=== PATIENT | female | born 1935 | race Caucasian/White ===

== ENCOUNTER 2016-05-20 13:46 | Observation (INO) | payer MEDICARE, BC ==
[2016-05-20] MEDS ORDERED: Ketorolac 30 MG/ML SDV IM ONE (14:26)
--- NOTE | 2016-05-20 14:28 | EDM.PDOC ---
ED HPI Trauma - General Chief Complaint: Upper Extremity Injury/Pain Stated Complaint: HURT RT ARM/WRIST Time Seen by Provider: 05/20/16 14:27 Source: Reports: Family History Limitations: Reports: Physical impairment - History of Present Illness INITIAL COMMENTS - FREE TEXT/NARRATIVE: 81-year-old female presents emergency department today with family complaint of right wrist pain she does have a known history of dementia unknown fall today unknown mechanism action she does have an obvious deformity of her right wrist she is unable to recall events Allergies/ADRs: Allergies amoxicillin trihydrate [From Augmentin] Allergy (Verified 05/20/16 14:32) Hives potassium clavulanate [From Augmentin] Allergy (Verified 05/20/16 14:32) Hives hydrocodone Adverse Reaction (Verified 05/20/16 14:32) Hallucinations Sulfa (Sulfonamide Antibiotics) Adverse Reaction (Verified 05/20/16 14:32) Vomiting Home Medications: Ambulatory Orders Isosorbide Mononitrate [Imdur] 60 mg PO DAILY 03/19/14 [Confirmed 05/20/16] Methotrexate Sodium [Methotrexate] 25 mg IJ ASDIRECTED 12/15/15 [Confirmed 05/20] Metoprolol Succinate 25 mg PO DAILY 12/15/15 [Confirmed 05/20/16] levETIRAcetam [Keppra] 500 mg PO BID #60 tablet 12/16/15 [Confirmed 05/20/16] Past Medical History HEENT History: Reports: Impaired vision 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: Reports: Hypertension [employer]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: Musculoskeletal History: Reports: Osteoporosis Neurological History: Reports: Alzheimers disease, Seizure Psychiatric History: Reports: Dementia Hematologic History: Reports: Blood transfusion(s) Oncologic (Cancer) History: Reports: Breast Dermatologic History: Reports: Psoriasis - Infectious Disease History Infectious Disease History: Reports: Chicken pox, Measles - Past Surgical History Female Surgical History: Reports: section, Mastectomy, Other (see below) Other Female Surgeries/Procedures: right mastectomy Musculoskeletal Surgical History: Reports: Hip replacement Oncologic Surgical History: Reports: Mastectomy Social & Family History - Family History Family Medical History: Unobtainable - Tobacco Use Smoking Status *Q: Never Smoker Second Hand Smoke Exposure: No - Caffeine Use Caffeine Use: Reports: Coffee - Alcohol Use Days Per Week of Alcohol Use: 2 Number of Drinks Per Day: 1 Total Drinks Per Week: 2 - Recreational Drug Use Recreational Drug Use: No Review of Systems - Review of Systems Review Of Systems: Unable To Obtain (Dementia) Trauma Exam - Physical Exam Exam: See Below Text/Narrative:: Examination of the upper extremity right side there is a deformity at the wrist she has difficulty moving all digits secondary to pain radial pulses 2+ appreciate any erythema no tenderness at the elbow no tenderness at the shoulder General Appearance: Reports: alert Respiratory Exam: Reports: no respiratory distress Course - Vital Signs Last Recorded V/S: Last Vital Signs Temp 98.8 F 05/20/16 14:21 Pulse 67 05/20/16 14:21 Resp 16 05/20/16 14:21 BP 106/58 L 05/20/16 14:21 Pulse Ox 96 05/20/16 14:21 - Orders/Labs/Meds Orders: Active Orders 24 hr Category Date Time Status Peripheral IV Care [RC] . DIRECTED Care 05/20/16 15:50 Active Sodium Chloride 0.9% [Saline Flush] Med 05/20/16 15:50 Active 10 ml FLUSH ASDIRECTED PRN Peripheral IV Insertion Adult [OM.PC] Urgent Oth 05/20/16 15:50 Ordered Medication Orders Sodium Chloride (Saline Flush) 10 ml FLUSH ASDIRECTED PRN PRN Reason: Keep Vein Open Meds: Medications Generic Name Dose Route Start Last Admin Trade Name Freq PRN Reason Stop Dose Admin Sodium Chloride 10 ml 05/20/16 15:50 Saline Flush FLUSH ASDIRECTED PRN Keep Vein Open Discontinued Medications Generic Name Dose Route Start Last Admin Trade Name Freq PRN Reason Stop Dose Admin Hydromorphone HCl 0.5 mg 05/20/16 15:50 Dilaudid IVPUSH 05/20/16 15:51 ONETIME ONE Ketorolac Tromethamine 30 mg 05/20/16 14:26 05/20/16 14:48 Toradol IM 05/20/16 14:27 30 mg ONETIME ONE Administration Departure - Departure Time of Disposition: 16:04 Disposition: Admitted As Inpatient 66 Condition: good Clinical Impression: Distal radius fracture, right Qualifiers: Encounter type: initial encounter Fracture type: closed Fracture morphology: other fracture Qualified Code(s): S52.591A - Other fractures of lower end of right radius, initial encounter for closed fracture Right distal ulnar fracture Qualifiers: Encounter type: initial encounter Fracture type: closed Fracture morphology: unspecified fracture morphology Qualified Code(s): S52.601A - Unspecified fracture of lower end of right ulna, initial encounter for closed fracture Forms: ED Department Discharge - My Orders Last 24 Hours: My Active Orders 05/20/16 15:50 Peripheral IV Care [RC] . DIRECTED Sodium Chloride 0.9% [Saline Flush] 10 ml FLUSH ASDIRECTED PRN Peripheral IV Insertion Adult [OM.PC] Urgent - Assessment/Plan Last 24 Hours: My Active Orders 05/20/16 15:50 Peripheral IV Care [RC] . DIRECTED Sodium Chloride 0.9% [Saline Flush] 10 ml FLUSH ASDIRECTED PRN Peripheral IV Insertion Adult [OM.PC] Urgent Plan: Assessment Distal radius fracture closed right side, distal ulnar fracture closed right side both comminuted Alzheimer's dementia Plan Discuss case with Dr. Bianchi orthopedic surgery recommended volar splint admission to the hospital plan for surgical intervention in the morning
--- NOTE | 2016-05-20 14:46 | CR ---
Wrist Comp Min 3V Rt HISTORY: Fall. COMPARISON: None FINDINGS: Compacted comminuted fracture of the radial metaphysis with mild ventral angulation. Mildl y compacted fracture of the very distal neck of the ulna. Carpal bones appear intact. Old ulnar styl oid fracture.
[2016-05-20] MEDS ORDERED: Sodium Chloride 0.9% 10 ML Syringe FLUSH PRN (15:50)
[2016-05-20] MEDS ORDERED: HYDROmorphone 0.5 MG/0.5 ML Syringe IVPUSH ONE (15:50)
--- NOTE | 2016-05-20 16:27 | PCM.HP ---
H&P History of Present Illness - General Date of Service: 05/20/16 Admit Problem/Dx: Admission Diagnosis/Problem Admission Diagnosis/Problem Wrist joint pain Source of Information: Patient, Family History Limitations: Reports: Altered mental status (dementia) - History of Present Illness Initial Comments - Free Text/Narative: Jennifer presents to the emergency room with her . She is complaining of right wrist pain after a fall. She has dementia and doesn't really remember what happened. She thinks that she was going out the front door of her assisted -living building but does not recall if she fell or what happened. She's complaining of moderate throbbing right wrist pain. Pain has been present since about 1 PM today when she had her episode. She hasn't taken anything to make the pain better. Moving makes the pain worse. She's never experienced pain like this in the past. Ice does seem to help the pain feel better since she's been in the emergency room. No recent difficulties with cough, chest pain or shortness of breath. Thinks it been going well recently. No history of difficulty with anesthesia or bleeding issues perioperatively. Workup in the emergency room revealed a fracture of the right radius and right ulna. She will be admitted for observation and surgical intervention in the morning. - Related Data Allergies/Adverse Reactions: Allergies Allergy/AdvReac Type Severity Reaction Status Date / Time amoxicillin trihydrate Allergy Hives Verified 05/20/16 14:32 [From Augmentin] potassium clavulanate Allergy Hives Verified 05/20/16 14:32 [From Augmentin] hydrocodone AdvReac Hallucinati Verified 05/20/16 14:32 ons Sulfa (Sulfonamide AdvReac Vomiting Verified 05/20/16 14:32 Antibiotics) Home Medications: Home Meds Isosorbide Mononitrate [Imdur] 60 mg PO DAILY 03/19/14 [History] Methotrexate Sodium [Methotrexate] 25 mg IJ ASDIRECTED 12/15/15 [History] Metoprolol Succinate 25 mg PO DAILY 12/15/15 [History] levETIRAcetam [Keppra] 500 mg PO BID #60 tablet 12/16/15 [Rx] LORazepam 1 mg PO ASDIRECTED PRN 05/20/16 [History] Past Medical History HEENT History: Reports: Impaired vision 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: Reports: Hypertension [employer]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: Musculoskeletal History: Reports: Osteoporosis Neurological History: Reports: Alzheimers disease, Seizure Psychiatric History: Reports: Dementia Hematologic History: Reports: Blood transfusion(s) Oncologic (Cancer) History: Reports: Breast Dermatologic History: Reports: Psoriasis - Infectious Disease History Infectious Disease History: Reports: Chicken pox, Measles - Past Surgical History Female Surgical History: Reports: section, Mastectomy, Other (see below) Other Female Surgeries/Procedures: right mastectomy Musculoskeletal Surgical History: Reports: Hip replacement Oncologic Surgical History: Reports: Mastectomy Social & Family History - Family History Family Medical History: Unobtainable - Tobacco Use Smoking Status *Q: Never Smoker Second Hand Smoke Exposure: No - Caffeine Use Caffeine Use: Reports: Coffee - Alcohol Use Days Per Week of Alcohol Use: 2 Number of Drinks Per Day: 1 Total Drinks Per Week: 2 - Recreational Drug Use Recreational Drug Use: No H&P Review of Systems - Review of Systems: Review Of Systems: See Below Free Text/Narrative: A complete 12 point review of systems was obtained. Pertinent positives and negatives are noted in the history of present illness. All other systems were reviewed and were negative except as noted. Exam - Exam Exam: See Below - Vital Signs Vital Signs: Last Vital Signs Temp 37.1 C 05/20/16 14:21 Pulse 67 05/20/16 14:21 Resp 16 05/20/16 14:21 BP 106/58 L 05/20/16 14:21 Pulse Ox 96 05/20/16 14:21 Weight: 52.163 kg - Exam Quality Assessment: No: supplemental oxygen General: alert, cooperative. No: oriented, mild distress HEENT: Conjunctiva clear, Posterior pharynx clear. No: Scleral icterus Neck: supple, trachea midline Lungs: Clear to auscultation, Normal respiratory effort Cardiovascular: regular rate, regular rhythm Abdomen: soft. No: distention (And all day and), tenderness Back Exam: normal inspection, full range of motion Extremities: normal pulses, other (Swelling right wrist). No: edema Peripheral Pulses: 2+: dorsalis pedis (L), dorsalis pedis (R) Skin: warm, dry, intact. No: rash Neuro Extensive - Mental Status: alert, normal mood/affect. No: oriented x3 Neuro Extensive - Motor, Sensory, Reflexes: CN II-XII intact. No: dysarthria, abnormal motor, tremor Psychiatric: alert, normal affect - Patient Data Imaging Impressions last 24 hrs: X-ray of the right wrist - images personally reviewed - there is evidence for a displaced fracture of the distal radius as well as the distal ulna with comminution of the fracture *Q Meaningful Use (ADM) - VTE *Q VTE Criteria *Q: VTE Pharmacological Contraindications *Q: Patient Scheduled Surgery - Stroke *Q Stroke Criteria *Q: - AMI *Q AMI Criteria *Q: - Problem List (1) Right distal ulnar fracture SNOMED Code(s): 260684566 ICD Code: S52.601A - UNSP FRACTURE OF LOWER END OF RIGHT ULNA, INIT FOR CLOS FX Status: Acute Current Visit: Yes Qualifiers: Encounter type: initial encounter Fracture type: closed Fracture morphology: unspecified fracture morphology Qualified Code(s): S52.601A - Unspecified fracture of lower end of right ulna, initial encounter for closed fracture (2) Distal radius fracture, right SNOMED Code(s): 632409305 ICD Code: S52.501A - UNSP FRACTURE OF THE LOWER END OF RIGHT RADIUS, INIT Status: Acute Current Visit: Yes Qualifiers: Encounter type: initial encounter Fracture type: closed Fracture morphology: other fracture Qualified Code(s): S52.591A - Other fractures of lower end of right radius, initial encounter for closed fracture (3) Seizure disorder SNOMED Code(s): 695799212 ICD Code: G40.909 - EPILEPSY, UNSP, NOT INTRACTABLE, WITHOUT STATUS EPILEPTICUS Status: Chronic Current Visit: Yes (4) Hypertension SNOMED Code(s): 05789823 ICD Code: I10 - ESSENTIAL (PRIMARY) HYPERTENSION Status: Chronic Current Visit: Yes Qualifiers: Hypertension type: essential hypertension Qualified Code(s): I10 - Essential (primary) hypertension Problem List Initiated/Reviewed/Updated: Yes Orders Last 24hrs: Active Orders 24 hr Category Date Time Status Patient Status Manage Transfer [TRANSFER] Routine ADT 05/20/16 16:16 Ordered Peripheral IV Care [RC] . DIRECTED Care 05/20/16 15:50 Active Sodium Chloride 0.9% [Saline Flush] Med 05/20/16 15:50 Active 10 ml FLUSH ASDIRECTED PRN Peripheral IV Insertion Adult [OM.PC] Urgent Oth 05/20/16 15:50 Ordered Resuscitation Status Routine Resus Stat 05/20/16 16:18 Ordered Medication Orders Sodium Chloride (Saline Flush) 10 ml FLUSH ASDIRECTED PRN PRN Reason: Keep Vein Open Last Admin: 05/20/16 16:22 Dose: 10 ml Assessment/Plan Comment:: Assessment and plan - Right radius and ulna fracture - secondary to fall and trauma. There is displacement of the fracture. Surgical intervention is planned. The patient is in optimal achievable medical condition for the surgery at this time. She has a low risk surgery and I believe is a low risk patient. -Admitted for observation -Pain control -Consult to Dr. Bianchi for surgical intervention in the morning -N.p.o. after midnight History of seizure disorder - No recent issues. -Continue levetiracetam Hypertension - Well-controlled usual medications will be continued. Alzheimer's type dementia - no behavior issues at this time. Maintenance issues - - DVT prophylaxis - mechanical - GI prophylaxis - not indicated - Nutrition - n.p.o. after midnight - Queen catheter - not indicated CODE STATUS - full code Admission justification - she will be referred observation status for pain control overnight and surgery in the morning Disposition - anticipate discharge back to her assisted-living facility tomorrow Primary care physician - Dr. Anthony Lamb M.D.
--- NOTE | 2016-05-20 18:27 | PCM.CONS ---
H&P History of Present Illness - General Date of Service: 05/20/16 Admit Problem/Dx: Admission Diagnosis/Problem Patient ALEKSANDR today. Seen in ED. Found to have distal radius and ulna fracture , closed. Placed in volar splint. Admitted to Medicine. Source of Information: Patient, Provider History Limitations: Reports: Altered mental status - History of Present Illness Onset of Symptoms: Reports: today Quality: Reports: Ache, Burning, Pressure, Throbbing Improves with: Reports: Cold therapy, Immobilization Worsens with: Reports: Movement Associated Symptoms: Reports: denies other symptoms Wrist Pain Score (Numeric/FACES): 7 - Related Data Allergies/Adverse Reactions: Allergies Allergy/AdvReac Type Severity Reaction Status Date / Time amoxicillin trihydrate Allergy Hives Verified 05/20/16 14:32 [From Augmentin] potassium clavulanate Allergy Hives Verified 05/20/16 14:32 [From Augmentin] hydrocodone AdvReac Hallucinati Verified 05/20/16 14:32 ons Sulfa (Sulfonamide AdvReac Vomiting Verified 05/20/16 14:32 Antibiotics) Home Medications: Home Meds Isosorbide Mononitrate [Imdur] 60 mg PO DAILY 03/19/14 [History] Methotrexate Sodium [Methotrexate] 25 mg IJ ASDIRECTED 12/15/15 [History] Metoprolol Succinate 25 mg PO DAILY 12/15/15 [History] levETIRAcetam [Keppra] 500 mg PO BID #60 tablet 12/16/15 [Rx] LORazepam 1 mg PO ASDIRECTED PRN 05/20/16 [History] Past Medical History HEENT History: Reports: Impaired vision 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: Musculoskeletal History: Reports: Osteoporosis Neurological History: Reports: Alzheimers disease, Seizure Psychiatric History: Reports: Dementia Hematologic History: Reports: Blood transfusion(s) Oncologic (Cancer) History: Reports: Breast Dermatologic History: Reports: Psoriasis - Infectious Disease History Infectious Disease History: Reports: Chicken pox, Measles - Past Surgical History Female Surgical History: Reports: section, Mastectomy, Other (see below) Other Female Surgeries/Procedures: right mastectomy Musculoskeletal Surgical History: Reports: Hip replacement Oncologic Surgical History: Reports: Mastectomy Social & Family History - Family History Family Medical History: Unobtainable - Tobacco Use Smoking Status *Q: Never Smoker Second Hand Smoke Exposure: No - Caffeine Use Caffeine Use: Reports: Coffee - Alcohol Use Days Per Week of Alcohol Use: 2 Number of Drinks Per Day: 1 Total Drinks Per Week: 2 - Recreational Drug Use Recreational Drug Use: No H&P Review of Systems - Review of Systems: Review Of Systems: See Below General: Reports: no symptoms HEENT: Reports: no symptoms Pulmonary: Reports: No Symptoms Cardiovascular: Reports: no symptoms Gastrointestinal: Reports: No symptoms Genitourinary: Reports: no symptoms Musculoskeletal: Reports: hand pain, muscle pain Exam - Exam Exam: See Below - Vital Signs Vital Signs: Last Vital Signs Temp 98.8 F 05/20/16 14:21 Pulse 69 05/20/16 16:37 Resp 16 05/20/16 16:37 BP 138/77 05/20/16 16:37 Pulse Ox 93 L 05/20/16 16:37 Weight: 115 lb - Exam General: alert, oriented, cooperative HEENT: PERRLA, Conjunctiva clear Neck: supple, trachea midline Extremities: normal inspection Peripheral Pulses: 2+: radial (R) Skin: warm, dry, intact Neuro Extensive - Mental Status: alert, oriented x3 Physical Exam Comments:: Distal motor and sensory function grossly intact. Mild apex volar deformity right wrist. Minimal swelling. AIN intact. 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 Consult PN Assessment/Plan Procedures: Procedures ASSAY OF CK (CPK) (02/13/13) ASSAY OF CREATININE (02/21/16) ASSAY OF TROPONIN QUANT (12/15/15) CHEST X-RAY 2VW FRONTAL&LATL (03/19/14) COMPLETE CBC AUTOMATED (12/15/15) COMPLETE CBC W/AUTO DIFF WBC (03/19/14) COMPREHEN METABOLIC PANEL (02/13/13) CT HEAD/BRAIN W/O DYE (12/15/15) ELECTROCARDIOGRAM REPORT (02/13/13) ELECTROCARDIOGRAM TRACING (02/13/13) EMERGENCY DEPT VISIT (12/15/15) EMERGENCY DEPT VISIT (03/19/14) EMERGENCY DEPT VISIT (02/13/13) HOT OR COLD PACKS THERAPY (12/21/13) HYDRATE IV INFUSION ADD-ON (02/13/13) HYDRATION IV INFUSION INIT (02/13/13) INFLUENZA ASSAY W/OPTIC (03/19/14) MANUAL THERAPY 1/> REGIONS (12/21/13) METABOLIC PANEL TOTAL CA (12/15/15) MR ANGIOGRAPH NECK W/O&W/DYE (02/21/16) MR ANGIOGRAPHY HEAD W/O DYE (02/20/16) MRI BRAIN STEM W/O & W/DYE (02/21/16) PROTHROMBIN TIME (12/15/15) PT EVALUATION (12/15/15) ROUTINE VENIPUNCTURE (02/21/16) THER/PROPH/DIAG INJ IV PUSH (12/15/15) THERAPEUTIC EXERCISES (12/21/13) URINALYSIS AUTO W/O SCOPE (02/13/13) URINALYSIS AUTO W/SCOPE (12/15/15) X-RAY EXAM OF KNEE 3 (04/17/16) (1) Distal radius fracture, right SNOMED Code(s): 633699978 Code(s): S52.501A - UNSP FRACTURE OF THE LOWER END OF RIGHT RADIUS, INIT Current Visit: Yes Qualifiers: Encounter type: initial encounter Fracture type: closed Fracture morphology: other fracture Qualified Code(s): S52.591A - Other fractures of lower end of right radius, initial encounter for closed fracture (2) Right distal ulnar fracture SNOMED Code(s): 641917497 Code(s): S52.601A - UNSP FRACTURE OF LOWER END OF RIGHT ULNA, INIT FOR CLOS FX Current Visit: Yes Qualifiers: Encounter type: initial encounter Fracture type: closed Fracture morphology: unspecified fracture morphology Qualified Code(s): S52.601A - Unspecified fracture of lower end of right ulna, initial encounter for closed fracture Problem List Initiated/Reviewed/Updated: Yes Plan: Patient is right hand dominant. Explained need for ORIF tomorrow AM. Informed consent obtained. Officer splinting today. Will make NPO at midnight. Will follow up in 2 weeks after surgery. Requesting Provider: Forest Lamb MD Date Consult Requested: 05/20/16 Patient History Reviewed: Yes Admission H&P Reviewed: Yes Notified Requestor: Yes
[2016-05-20] MEDS ORDERED: LORazepam 1 MG Tab PO PRN (19:03)
[2016-05-20] MEDS ORDERED: Polyethylene Glycol 3350 Powder 17 GM Packet PO PRN (19:03)
[2016-05-20] MEDS ORDERED: Acetaminophen 325 MG Tab PO PRN (19:03)
[2016-05-20] MEDS: HYDROmorphone 0.5 MG/0.5 ML Syringe IVPUSH PRN (19:47)
[2016-05-20] MEDS ORDERED: levETIRAcetam 250 MG Tab PO SCH (21:00)
[2016-05-20] MEDS: Ondansetron 4 MG Tab.DIS PO PRN (22:08)
[2016-05-21] MEDS: HYDROmorphone 0.5 MG/0.5 ML Syringe IVPUSH PRN ×3 (04:03→15:10)
[2016-05-21] MEDS: Ondansetron 4 MG Tab.DIS PO PRN ×2 (04:03→10:23)
[2016-05-21] MEDS ORDERED: Metoprolol Succinate 25 MG Tab.ER ONE (06:15)
[2016-05-21] MEDS: Metoprolol Succinate 25 MG Tab.ER**POM PO SCH ×2 (06:41→09:44)
[2016-05-21] MEDS ORDERED: Povidone-Iodine 10% Soln 118.25 ML Bottle ONE (06:45)
[2016-05-21] MEDS ORDERED: Bupivacaine 0.5%/EPINEPHrine 1:200,000 50 ML MDV ONE (06:45)
[2016-05-21] MEDS ORDERED: fentaNYL 250 MCG/5 ML SDV ONE (07:14)
[2016-05-21] MEDS ORDERED: Ondansetron 4 MG/2 ML SDV ONE (07:15)
[2016-05-21] MEDS ORDERED: Propofol 200 MG/20 ML SDV ONE (07:15)
[2016-05-21] MEDS ORDERED: Dexamethasone 4 MG/ML SDV ONE (07:15)
[2016-05-21] MEDS: ISOSORBIDE MONONITRATE 60 MG PO SCH (09:42)
[2016-05-21] MEDS: LEVETIRACETAM 500 MG PO SCH ×2 (09:43→20:11)
[2016-05-21] MEDS: oxyCODONE 5 MG Tab PO PRN ×2 (10:14→14:16)
--- NOTE | 2016-05-21 11:04 | OR ---
DATE OF PROCEDURE: 05/21/2016 PREOPERATIVE DIAGNOSIS: Right distal radius and ulnar fracture, closed. POSTOPERATIVE DIAGNOSIS: Right distal radius and ulnar fracture, closed. PROCEDURE: Right distal radius open reduction and internal fixation and application of short-arm splint. ANESTHESIA: Laryngeal mask airway, general anesthesia. FLUID: Lactated Ringer solution. ESTIMATED BLOOD LOSS: 25 mL. COMPLICATIONS: None. SPECIMEN: None. DISCHARGE DISPOSITION: Stable to PACU. Tourniquet time is 29 minutes. INDICATION FOR THE PROCEDURE: The patient was admitted to the hospital last night for a distal radius fracture after a fall. She did have some dementia. I did evaluate her last evening, and informed consent was obtained. Preoperative imaging confirmed the above- mentioned diagnosis. DETAILS OF PROCEDURE: The patient was seen preoperatively by myself and the Anesthesia staff in the preoperative holding area where the operative site was marked. She was brought to the operative suite by the Anesthesia staff where general anesthesia was administered. The right upper extremity had a well-padded tourniquet placed on the arm. The right upper extremity was then prepped and draped in a sterile manner. Time-out was called identifying the correct patient, correct procedure, the correct site, and antibiotics had begun with an appropriate period of time. The Esmarch was used to exsanguinate the right upper extremity. Tourniquet was raised to 250 mmHg for 29 minutes. An incision was made from the carpus approximately around 10 to 12 cm and carried down to the flexor carpi radialis tendon. Weitlaner retractor was then used to lateralize the tendon and then the dorsal aspect of the muscle sheath was then incised down to the pronator. A sharp blade was then used to remove the pronator as well as using an elevator. Irrigation was used to clear the surgical site. The fracture was then reduced. Confirmed on fluoroscopy. However, was extremely unstable. There were 2 intra-articular segments as well. I then placed a plate under fluoroscopic guidance, drilled the cortical hole, and then held the plate in place. I did this a couple of times using fluoroscopy. I then drilled my proximal and distal rows and placed screws and then applied my other 2 cortical screws. Imaging confirmed excellent reduction and alignment. I then copiously irrigated the wound with saline, closed with 2-0 subcutaneous Vicryl sutures in an interrupted manner followed by 3-0 nylon sutures followed by a sterile dressing followed by a short-arm splint. The tourniquet was let down prior to closure to evaluate for any bleeders, which were controlled with Bovie electrocautery. The patient was then taken to PACU in stable condition. Rakan Bianchi DO /[id number]
--- NOTE | 2016-05-21 14:22 | PCM.PN ---
- General Info Date of Service: 05/21/16 Functional Status: Reports: pain controlled, tolerating diet - Review of Systems General: Reports: Weakness Musculoskeletal: Reports: arm pain Systems Review Comment:: No acute events overnight. Surgical fixation this morning was uneventful. Not much of an appetite but otherwise feels well. Mild to moderate wrist pain at this time. No fevers. - Patient Data Vitals - most recent: Last Vital Signs Temp 36.8 C 05/21/16 11:27 Pulse 68 05/21/16 11:27 Resp 14 05/21/16 11:27 BP 124/84 05/21/16 11:27 Pulse Ox 92 L 05/21/16 11:27 Weight - most recent: 48.943 kg I&O - last 24 hours: Intake & Output 05/20/16 05/21/16 05/21/16 22:59 06:59 14:59 Intake Total 240 1280 Output Total 150 Balance 90 1280 Med Orders - Current: Current Medications Acetaminophen (Tylenol) 650 mg PO Q4H PRN PRN Reason: Pain (Mild 1-3)/fever Last Admin: 05/21/16 00:02 Dose: 650 mg Hydromorphone HCl (Dilaudid) 0.5 - 1 mg IVPUSH Q2H PRN PRN Reason: Pain (severe 7-10) Last Admin: 05/21/16 10:13 Dose: 0.5 mg Lorazepam (Ativan) 1 mg PO BID PRN PRN Reason: Anxiety Metoprolol Succinate (Toprol Xl) 25 mg PO DAILY [facility] Last Admin: 05/21/16 09:44 Dose: Not Given Ondansetron HCl (Zofran Odt) 4 mg PO Q6H PRN PRN Reason: Nausea able to take PO Last Admin: 05/21/16 10:23 Dose: 4 mg Oxycodone HCl (Oxycodone) 5 mg PO Q4H PRN PRN Reason: Pain (moderate 4-6) Last Admin: 05/21/16 14:16 Dose: 5 mg Isosorbide Mononitrate 60 Mg Tab.ErPom 0 each PO DAILY [facility] Last Admin: 05/21/16 09:42 Dose: 1 each Levetiracetam 500 Mg (TabPom) 0 each PO BID [facility] Last Admin: 05/21/16 09:43 Dose: 1 each Polyethylene Glycol (Miralax) 17 gm PO DAILY PRN PRN Reason: Constipation Sodium Chloride (Saline Flush) 10 ml FLUSH ASDIRECTED PRN PRN Reason: Keep Vein Open Last Admin: 05/20/16 16:22 Dose: 10 ml Discontinued Medications Bupivacaine HCl/Epinephrine Bitart (Marcaine 0.5%/Epinephrine 1:200,000) Confirm Administered Dose 50 ml .ROUTE .STK-MED ONE Stop: 05/21/16 06:46 Dexamethasone (Dexamethasone) Confirm Administered Dose 4 mg .ROUTE .STK-MED ONE Stop: 05/21/16 07:16 Fentanyl (Sublimaze) Confirm Administered Dose 250 mcg .ROUTE .STK-MED ONE Stop: 05/21/16 07:15 Hydromorphone HCl (Dilaudid) 0.5 mg IVPUSH ONETIME ONE Stop: 05/20/16 15:51 Last Admin: 05/20/16 16:22 Dose: 0.5 mg Clindamycin Phosphate 600 mg/ (Sodium Chloride) 54 mls @ 100 mls/hr IV ONETIME ONE Stop: 05/21/16 07:32 Last Admin: 05/21/16 07:24 Dose: 100 mls/hr Ketorolac Tromethamine (Toradol) 30 mg IM ONETIME ONE Stop: 05/20/16 14:27 Last Admin: 05/20/16 14:48 Dose: 30 mg Levetiracetam (Keppra) 500 mg PO BID [facility] Last Admin: 05/20/16 23:51 Dose: 500 mg Metoprolol Succinate (Toprol Xl) Confirm Administered Dose 25 mg .ROUTE .STK- MED ONE Stop: 05/21/16 06:16 Last Admin: 05/21/16 06:46 Dose: Not Given Ondansetron HCl (Zofran) Confirm Administered Dose 4 mg .ROUTE .STK-MED ONE Stop: 05/21/16 07:16 Povidone Iodine (Betadine 10% Soln) Confirm Administered Dose 1 ml .ROUTE .STK- MED ONE Stop: 05/21/16 06:46 Last Admin: 05/21/16 10:10 Dose: 10 ml Propofol (Diprivan 20 Ml) Confirm Administered Dose 200 mg .ROUTE .STK-MED ONE Stop: 05/21/16 07:16 - Exam Quality Assessment: No: supplemental oxygen General: alert, cooperative, no acute distress Neck: supple Lungs: Normal respiratory effort Abdomen: soft, no distension Extremities: no edema, other (Right arm wrapped in an Elmer wrap covering a splint. Able to wiggle all of her fingers on the right and no limitations) Skin: warm, dry Psy/Mental Status: alert, normal affect - Problem List & Annotations (1) Right distal ulnar fracture SNOMED Code(s): 249447777 Code(s): S52.601A - UNSP FRACTURE OF LOWER END OF RIGHT ULNA, INIT FOR CLOS FX Status: Acute Current Visit: Yes Qualifiers: Encounter type: initial encounter Fracture type: closed Fracture morphology: unspecified fracture morphology Qualified Code(s): S52.601A - Unspecified fracture of lower end of right ulna, initial encounter for closed fracture (2) Distal radius fracture, right SNOMED Code(s): 931894908 Code(s): S52.501A - UNSP FRACTURE OF THE LOWER END OF RIGHT RADIUS, INIT Status: Acute Current Visit: Yes Qualifiers: Encounter type: initial encounter Fracture type: closed Fracture morphology: other fracture Qualified Code(s): S52.591A - Other fractures of lower end of right radius, initial encounter for closed fracture (3) Seizure disorder SNOMED Code(s): 754104347 Code(s): G40.909 - EPILEPSY, UNSP, NOT INTRACTABLE, WITHOUT STATUS EPILEPTICUS Status: Chronic Current Visit: Yes (4) Hypertension SNOMED Code(s): 67210427 Code(s): I10 - ESSENTIAL (PRIMARY) HYPERTENSION Status: Chronic Current Visit: Yes Qualifiers: Hypertension type: essential hypertension Qualified Code(s): I10 - Essential (primary) hypertension - Problem List Review Problem List Initiated/Reviewed/Updated: Yes - My Orders Last 24 Hours: My Active Orders 05/20/16 16:18 Resuscitation Status Routine 05/20/16 19:03 Patient Status [ADT] Routine Notify Provider Consults [RC] ASDIRECTED Notify Provider Vital Signs [RC] ASDIRECTED Oxygen Therapy [RC] PRN Up With Assistance [RC] ASDIRECTED VTE/DVT Education [RC] Per Unit Routine Vital Signs [RC] Q4H Consult to Physician [CONS] Routine Acetaminophen [Tylenol] 650 mg PO Q4H PRN HYDROmorphone [Dilaudid] 0.5 - 1 mg IVPUSH Q2H PRN LORazepam [Ativan] 1 mg PO BID PRN Ondansetron [Zofran ODT] 4 mg PO Q6H PRN Polyethylene Glycol 3350 [MiraLAX] 17 gm PO DAILY PRN oxyCODONE 5 mg PO Q4H PRN Sequential Compression Device [OM.PC] Per Unit Routine VTE Pharmacological Contraindications [AST] Per Unit Routine 05/20/16 Dinner Regular Diet [DIET] 05/21/16 07:04 Fluoro Up To 1Hr [CR] Routine 05/21/16 09:00 Patient's Own Medication [Ptom] 0 each PO BID 05/21/16 Breakfast Nothing per Oral After Midnight Diet [DIET] - Plan Plan:: Assessment and plan - Right radius and ulna fracture - secondary to fall and trauma. There is displacement of the fracture. Surgical intervention was completed this morning. She is currently in a splint. Some difficulty with pain probably complicated by her dementia. Family is worried about her safety at assisted living and we're looking into a safe discharge plan such as the [facility] or snf. -Pain control -Physical therapy History of seizure disorder - No recent issues. -Continue levetiracetam Hypertension - Well-controlled usual medications will be continued. Alzheimer's type dementia - no behavior issues at this time. Maintenance issues - - DVT prophylaxis - mechanical - GI prophylaxis - not indicated - Nutrition - n.p.o. after midnight Disposition - anticipate discharge back to her assisted-living facility versus [facility] versus [facility] Forest Lamb M.D.
[2016-05-22] MEDS: oxyCODONE 5 MG Tab PO PRN ×2 (00:06→08:38)
[2016-05-22] MEDS: HYDROmorphone 0.5 MG/0.5 ML Syringe IVPUSH PRN (02:15)
[2016-05-22 07:24] VITALS: BP 106/66
[2016-05-22] MEDS: ISOSORBIDE MONONITRATE 60 MG PO SCH (08:40)
[2016-05-22] MEDS: LEVETIRACETAM 500 MG PO SCH (08:40)
[2016-05-22] MEDS: Metoprolol Succinate 25 MG Tab.ER**POM PO SCH (08:41)
--- NOTE | 2016-05-22 09:48 | PCM.DCSUM1 ---
Discharge Summary - Hospital Course Brief History: 81-year-old female with a history of dementia who presents with right wrist pain after a presumed fall. Workup in the emergency room revealed fractures of the distal radius and distal ulna. She was admitted for surgical intervention. - Discharge Data Discharge Date: 05/22/16 Discharge Disposition: Home, [facility] 06 Condition: Good - Discharge Diagnosis/Problem(s) (1) Right distal ulnar fracture SNOMED Code(s): 119598977 ICD Code: S52.601A - UNSP FRACTURE OF LOWER END OF RIGHT ULNA, INIT FOR CLOS FX Status: Acute Qualifiers: Encounter type: initial encounter Fracture type: closed Fracture morphology: unspecified fracture morphology Qualified Code(s): S52.601A - Unspecified fracture of lower end of right ulna, initial encounter for closed fracture (2) Distal radius fracture, right SNOMED Code(s): 383747877 ICD Code: S52.501A - UNSP FRACTURE OF THE LOWER END OF RIGHT RADIUS, INIT Status: Acute Qualifiers: Encounter type: initial encounter Fracture type: closed Fracture morphology: other fracture Qualified Code(s): S52.591A - Other fractures of lower end of right radius, initial encounter for closed fracture (3) Seizure disorder SNOMED Code(s): 488876807 ICD Code: G40.909 - EPILEPSY, UNSP, NOT INTRACTABLE, WITHOUT STATUS EPILEPTICUS Status: Chronic (4) Hypertension SNOMED Code(s): 39282058 ICD Code: I10 - ESSENTIAL (PRIMARY) HYPERTENSION Status: Chronic Qualifiers: Hypertension type: essential hypertension Qualified Code(s): I10 - Essential (primary) hypertension - Patient Summary/Data Operative Procedure(s) Performed: Open reduction and internal fixation right distal radius Consults: Consultations 05/20/16 19:03 Consult to Physician [CONS] Routine Consulting Provider: Rakan Bianchi Courtesy Call Completed to Consulting Physician: Yes Reason for Consult: right wrist fracture Person Notified: Dr Giovani Bianchi Date Notified: 05/20/16 Special Instructions: surgical intervention in the morning Hospital Course: Jennifer presented to the emergency room with right wrist pain. Because of her dementia the exact mechanism of injury was not entirely clear but fall was suspected. Workup in the emergency room revealed a fracture of both the distal radius and the distal ulna on the right arm. Because of her dementia, advanced age and pain difficulty she was admitted to the hospital for observation and plan to surgical intervention the following morning. There were no acute issues the night after admission. The morning after admission she had a successful and uneventful ORIF of the right distal radius. Following the surgery a short arm splint was applied to the right wrist area. Postoperatively we had a little bit of difficulty with pain and mild confusion because of the anesthesia. She remained hospitalized the second night while potential discharge options were being reviewed and discussed. On the morning of discharge she had improved enough that she was felt safe to go back to her assisted-living facility with her . The family was interested in home health care and she will be receiving physical therapy through home health care. The assisted living facility he is planning to increase to nursing services to provide additional assistance. Scheduled acetaminophen and as needed oxycodone were recommended for pain control. She will followup in 2 weeks in the orthopedic clinic. - Patient Instructions Diet: Regular Diet as Tolerated Activity: Apply Ice Driving: Do Not Drive Showering/Bathing: No Showering Wound/Incision Care: Keep Operative Site/Wound Site Clean and Dry, Do NOT Change Dressing Notify Provider of: Fever, Increased Pain, Swelling and Redness, Drainage, Nausea and/or Vomiting Other/Special Instructions: 1. You were in the hospital for surgical management of a right wrist fracture. A fracture has been treated with an open reduction and internal fixation by Dr. Bianchi. He has provided instructions as above about not putting any weight on your wrist at least until your followup appointment in 2 weeks. 2. I would recommend that she take acetaminophen 1000 mg 3 times daily to help with pain from the fracture. You may use oxycodone as needed for pain if you have breakthrough pain. 3. Please seek medical attention if you develop fever greater than 101, have increased swelling in your wrist, become unable to use her fingers on your right hand or have severe pain that is not able to be controlled with your pain medication. - Discharge Plan Prescriptions/Med Rec: Acetaminophen 1,000 mg PO TID #90 tablet oxyCODONE 5 mg PO Q4H PRN #30 tablet PRN Reason: Pain Home Medications: Home Meds Isosorbide Mononitrate [Imdur] 60 mg PO DAILY 03/19/14 [History] Methotrexate Sodium [Methotrexate] 25 mg IJ ASDIRECTED 12/15/15 [History] Metoprolol Succinate 25 mg PO DAILY 12/15/15 [History] levETIRAcetam [Keppra] 500 mg PO BID #60 tablet 12/16/15 [Rx] LORazepam 1 mg PO ASDIRECTED PRN 05/20/16 [History] Acetaminophen 1,000 mg PO TID #90 tablet 05/22/16 [Rx] oxyCODONE 5 mg PO Q4H PRN #30 tablet 05/22/16 [Rx] Patient Handouts: Wrist Fracture Treated With Immobilization Referrals: Zion Cruz MD [Primary Care Provider] - - Discharge Summary/Plan Comment DC Time >30 min.: No (25) - Patient Data Vitals - Most Recent: Last Vital Signs Temp 36.5 C 05/22/16 07:00 Pulse 57 L 05/22/16 08:41 Resp 18 05/22/16 07:00 BP 106/66 05/22/16 08:41 Pulse Ox 98 05/22/16 07:00 Weight - Most Recent: 48.943 kg I&O - Last 24 hours: Intake & Output 05/21/16 05/22/16 05/22/16 22:59 06:59 14:59 Intake Total 200 240 Output Total 100 Balance 200 -100 240 Med Orders - Current: Current Medications Acetaminophen (Tylenol) 650 mg PO Q4H PRN PRN Reason: Pain (Mild 1-3)/fever Last Admin: 05/21/16 00:02 Dose: 650 mg Hydromorphone HCl (Dilaudid) 0.5 - 1 mg IVPUSH Q2H PRN PRN Reason: Pain (severe 7-10) Last Admin: 05/22/16 02:15 Dose: 1 mg Lorazepam (Ativan) 1 mg PO BID PRN PRN Reason: Anxiety Metoprolol Succinate (Toprol Xl) 25 mg PO DAILY [facility] Last Admin: 05/22/16 08:41 Dose: 25 mg Ondansetron HCl (Zofran Odt) 4 mg PO Q6H PRN PRN Reason: Nausea able to take PO Last Admin: 05/21/16 10:23 Dose: 4 mg Oxycodone HCl (Oxycodone) 5 mg PO Q4H PRN PRN Reason: Pain (moderate 4-6) Last Admin: 05/22/16 08:38 Dose: 5 mg Isosorbide Mononitrate 60 Mg Tab.ErPom 0 each PO DAILY [facility] Last Admin: 05/22/16 08:40 Dose: 1 each Levetiracetam 500 Mg (TabPom) 0 each PO BID [facility] Last Admin: 05/22/16 08:40 Dose: 1 each Polyethylene Glycol (Miralax) 17 gm PO DAILY PRN PRN Reason: Constipation Sodium Chloride (Saline Flush) 10 ml FLUSH ASDIRECTED PRN PRN Reason: Keep Vein Open Last Admin: 05/20/16 16:22 Dose: 10 ml Discontinued Medications Bupivacaine HCl/Epinephrine Bitart (Marcaine 0.5%/Epinephrine 1:200,000) Confirm Administered Dose 50 ml .ROUTE .STK-MED ONE Stop: 05/21/16 06:46 Dexamethasone (Dexamethasone) Confirm Administered Dose 4 mg .ROUTE .STK-MED ONE Stop: 05/21/16 07:16 Fentanyl (Sublimaze) Confirm Administered Dose 250 mcg .ROUTE .STK-MED ONE Stop: 05/21/16 07:15 Hydromorphone HCl (Dilaudid) 0.5 mg IVPUSH ONETIME ONE Stop: 05/20/16 15:51 Last Admin: 05/20/16 16:22 Dose: 0.5 mg Clindamycin Phosphate 600 mg/ (Sodium Chloride) 54 mls @ 100 mls/hr IV ONETIME ONE Stop: 05/21/16 07:32 Last Admin: 05/21/16 07:24 Dose: 100 mls/hr Ketorolac Tromethamine (Toradol) 30 mg IM ONETIME ONE Stop: 05/20/16 14:27 Last Admin: 05/20/16 14:48 Dose: 30 mg Levetiracetam (Keppra) 500 mg PO BID [facility] Last Admin: 05/20/16 23:51 Dose: 500 mg Metoprolol Succinate (Toprol Xl) Confirm Administered Dose 25 mg .ROUTE .STK- MED ONE Stop: 05/21/16 06:16 Last Admin: 05/21/16 06:46 Dose: Not Given Ondansetron HCl (Zofran) Confirm Administered Dose 4 mg .ROUTE .STK-MED ONE Stop: 05/21/16 07:16 Povidone Iodine (Betadine 10% Soln) Confirm Administered Dose 1 ml .ROUTE .STK- MED ONE Stop: 05/21/16 06:46 Last Admin: 05/21/16 10:10 Dose: 10 ml Propofol (Diprivan 20 Ml) Confirm Administered Dose 200 mg .ROUTE .STK-MED ONE Stop: 05/21/16 07:16 *Q Meaningful Use (DIS) - VTE *Q VTE Criteria *Q: VTE Pharmacological Contraindications *Q: Patient Scheduled Surgery - Stroke *Q Stroke Criteria *Q: - AMI *Q AMI Criteria *Q:
== END 2016-05-22 10:56 | disposition home health service (06) ==
LOC: JP.ED 13:46 → JP.MS 16:16
PROVIDERS: ADMIT Internal Medicine; ATTEND Internal Medicine
DX: S52.601A Unspecified fracture of lower end of right ulna, initial encounter for closed fracture (principal); S52.591A Other fractures of lower end of right radius, initial encounter for closed fracture; G40.909 Epilepsy, unspecified, not intractable, without status epilepticus; I10 Essential (primary) hypertension; Z79.899 Other long term (current) drug therapy; Z88.1 Allergy status to other antibiotic agents; Z88.2 Allergy status to sulfonamides; Z88.8 Allergy status to other drugs, medicaments and biological substances; Z96.649 Presence of unspecified artificial hip joint; Z90.11 Acquired absence of right breast and nipple
CPT/HCPCS: 25608; 25652; 29125; 73110; 76000; 96372; 96374; 96376; 99217; 99220; 99225; 99284; A9270; C1713; G0378; J1100; J1170; J1885; J2405; J2704; J3010; J7050; S0077

== ENCOUNTER 2016-06-01 11:29 | Emergency (ER) | payer MEDICARE, BC ==
[2016-06-01 12:00] VITALS: BP 104/60
--- NOTE | 2016-06-01 12:43 | EDM.PDOC ---
[id number] ARM PAIN SURGERY 05/22/16 Time Seen by Provider: 06/01/16 12:38 Source: Reports: Patient, Family History Limitations: Reports: No limitations - History of Present Illness INITIAL COMMENTS - FREE TEXT/NARRATIVE: Pt arrived with a concern about the wound and some bloody drainage. Timing: Reports: still present Location, Skin: Reports: upper extremity, right Known Identified Source: yes Associated symptoms: Reports: other (pt had a carpal tunnel repair. ) - Related Data Allergies Allergy/AdvReac Type Severity Reaction Status Date / Time amoxicillin trihydrate Allergy Hives Verified 06/01/16 12:05 [From Augmentin] potassium clavulanate Allergy Hives Verified 06/01/16 12:05 [From Augmentin] hydrocodone AdvReac Hallucinati Verified 06/01/16 12:05 ons Sulfa (Sulfonamide AdvReac Vomiting Verified 06/01/16 12:05 Antibiotics) Home Meds: Ambulatory Orders Medication Instructions Recorded Confirmed Methotrexate Sodium [Methotrexate] 25 mg IJ ASDIRECTED 12/15/15 06/01/16 Metoprolol Succinate 25 mg PO DAILY 12/15/15 06/01/16 levETIRAcetam [Keppra] 500 mg PO BID #60 tablet 12/16/15 06/01/16 LORazepam 1 mg PO ASDIRECTED PRN 05/20/16 06/01/16 Acetaminophen 1,000 mg PO TID #90 tablet 05/22/16 06/01/16 oxyCODONE 5 mg PO Q4H PRN #30 tablet 05/22/16 06/01/16 Past Medical History HEENT History: Reports: Impaired vision 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: Reports: Hypertension COMPUTATIONAL BIOLOGIST History: Reports: Musculoskeletal History: Reports: Osteoporosis Neurological History: Reports: Alzheimers disease, Seizure Psychiatric History: Reports: Dementia Hematologic History: Reports: Blood transfusion(s) Oncologic (Cancer) History: Reports: Breast Dermatologic History: Reports: Psoriasis - Infectious Disease History Infectious Disease History: Reports: Chicken pox, Measles - Past Surgical History Female Surgical History: Reports: section, Mastectomy, Other (see below) Other Female Surgeries/Procedures: right mastectomy Musculoskeletal Surgical History: Reports: Hip replacement Oncologic Surgical History: Reports: Mastectomy Social & Family History - Family History Family Medical History: Unobtainable - Tobacco Use Smoking Status *Q: Never Smoker Second Hand Smoke Exposure: No - Caffeine Use Caffeine Use: Reports: Coffee Other Caffeine Use: Daily in am. - Alcohol Use Days Per Week of Alcohol Use: 0 Number of Drinks Per Day: 1 Total Drinks Per Week: 0 - Recreational Drug Use Recreational Drug Use: No ED ROS GENERAL - Review of Systems Review Of Systems: See Below Constitutional: Reports: no symptoms HEENT: Reports: No symptoms Respiratory: Reports: No Symptoms Cardiovascular: Reports: No symptoms Endocrine: Reports: no symptoms GI/Abdominal: Reports: No symptoms : Reports: no symptoms ED EXAM, SKIN/RASH Exam: See Below Text/Narrative:: pt was concerned about the bloody drainage on the dressings and she is havin some pain. Exam Limited By: No limitations General Appearance: alert, anxious Ears: normal TMs Nose: normal inspection Extremities: other ( rt arm with the carpal tunnel incision. The dressing show dry bloody drainage which I reasured them it was normal. The wound looks great. she is complaining of not having good pain control at [facility]. ) Course - Vital Signs Last Recorded V/S: Last Vital Signs Temp 35.5 C 06/01/16 12:09 Pulse 82 06/01/16 12:09 Resp 16 06/01/16 12:09 BP 104/60 06/01/16 12:09 Pulse Ox 95 06/01/16 12:09 Departure - Departure Time of Disposition: 12:42 Disposition: Home, Self-Care 01 Condition: fair Clinical Impression: Encounter for wound re-check Instructions: How to Change Your Dressing, [id number] Referrals: Zion Cruz MD [Primary Care Provider] - Forms: ED Department Discharge Care Plan Goals: keep appt with Dr Bianchi on thur, elevate when sitting, use cool packs prn. at [facility] use oxycodone 2 tabs at bedtime, during the day if uncomforable and the tylenol is not controlling the pain use 1/2 of the oxycodone 4 time daily.
== END 2016-06-01 13:01 | disposition home or self-care (01) ==
LOC: JP.ED 11:29
DX: Z48.01 Encounter for change or removal of surgical wound dressing (principal); I10 Essential (primary) hypertension; G30.9 Alzheimer's disease, unspecified; Z90.11 Acquired absence of right breast and nipple; Z96.649 Presence of unspecified artificial hip joint; Z98.890 Other specified postprocedural states; Z79.899 Other long term (current) drug therapy; Z88.1 Allergy status to other antibiotic agents; Z88.2 Allergy status to sulfonamides; Z88.5 Allergy status to narcotic agent
CPT/HCPCS: 99283

== ENCOUNTER 2016-06-14 08:37 | Emergency (ER) | payer MEDICARE, BC ==
[2016-06-14 08:45] VITALS: BP 186/92
--- NOTE | 2016-06-14 09:01 | EDM.PDOC ---
[id number]: 06/14/16 08:50 Source: Reports: Patient, EMS, Family History Limitations: Reports: Other (Some confusion, dementia) - History of Present Illness INITIAL COMMENTS - FREE TEXT/NARRATIVE: 81-year-old female who lives in the local assisted care facility has been falling frequently over the past few months sustaining a right wrist fracture, hematomas and contusions to the face and hips and this morning she had too much discomfort to get out of bed. Most of her complaints this morning her left hip and left posterior buttock pain. She was given a 5 mg hydrocodone and seems to have improved. Denies any shortness of breath, abdominal pain, numbness of the lower extremities. Occurred When: other (Unsure when the injuries have been occurring, she falls frequently) Occurred Where: home Method of Injury: direct blow, fall Severity: moderate Pain/Injury Location: Reports: face, pelvis Consciousness: Reports: no loss of consciousness Associated Symptoms: Reports: trouble walking. Denies: headache, shortness of breath Allergies/ADRs: Allergies amoxicillin trihydrate [From Augmentin] Allergy (Verified 06/01/16 12:05) Hives potassium clavulanate [From Augmentin] Allergy (Verified 06/01/16 12:05) Hives hydrocodone Adverse Reaction (Verified 06/01/16 12:05) Hallucinations Sulfa (Sulfonamide Antibiotics) Adverse Reaction (Verified 06/01/16 12:05) Vomiting Home Medications: Ambulatory Orders Methotrexate Sodium [Methotrexate] 25 mg IJ ASDIRECTED 12/15/15 [Confirmed 06/14] Metoprolol Succinate 25 mg PO DAILY 12/15/15 [Confirmed 06/14/16] levETIRAcetam [Keppra] 500 mg PO BID #60 tablet 12/16/15 [Confirmed 06/14/16] LORazepam 1 mg PO ASDIRECTED PRN 05/20/16 [Confirmed 06/14/16] Acetaminophen 1,000 mg PO TID #90 tablet 05/22/16 [Confirmed 06/14/16] oxyCODONE 5 mg PO Q4H PRN #30 tablet 05/22/16 [Confirmed 06/14/16] Past Medical History HEENT History: Reports: Impaired vision 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: Reports: Hypertension 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: Musculoskeletal History: Reports: Osteoporosis Neurological History: Reports: Alzheimers disease, Seizure Psychiatric History: Reports: Dementia Hematologic History: Reports: Blood transfusion(s) Oncologic (Cancer) History: Reports: Breast Dermatologic History: Reports: Psoriasis - Infectious Disease History Infectious Disease History: Reports: Chicken pox, Measles - Past Surgical History Female Surgical History: Reports: section, Mastectomy, Other (see below) Other Female Surgeries/Procedures: right mastectomy Musculoskeletal Surgical History: Reports: Hip replacement Oncologic Surgical History: Reports: Mastectomy Social & Family History - Family History Family Medical History: Unobtainable - Tobacco Use Smoking Status *Q: Never Smoker Second Hand Smoke Exposure: No - Caffeine Use Caffeine Use: Reports: Coffee Other Caffeine Use: Daily in am. - Alcohol Use Days Per Week of Alcohol Use: 0 Number of Drinks Per Day: 1 Total Drinks Per Week: 0 - Recreational Drug Use Recreational Drug Use: No Review of Systems - Review of Systems Review Of Systems: See Below Constitutional: Denies: fever Respiratory: Denies: Shortness of Breath Cardiovascular: Denies: chest pain GI/Abdominal: Denies: Nausea, Vomiting Skin: Reports: bruising Neurological: Reports: Confusion Trauma Exam - Physical Exam Exam: See Below Exam Limited By: No limitations General Appearance: Reports: alert, no apparent distress Head: Reports: other (Large ecchymotic area on the left face from recent fall, no significance swelling) Neck: Reports: non-tender Respiratory Exam: Reports: no respiratory distress GI/Abdominal: Reports: soft, non tender Back: Reports: other (She does have pain in the left lower back and sacral area with movement and palpation). Denies: CVA tenderness (R), CVA tenderness (L) Extremities: Reports: pain with movement (Some pain with movement of the left lower extremity but less now than prior to leaving from home in the ambulance), other (She has a splint from recent surgery on the right wrist) Skin: Reports: Other (Scattered bruises from falls, especially at the left face) Course - Vital Signs Last Recorded V/S: Last Vital Signs Temp 96.4 F 06/14/16 08:42 Pulse 81 06/14/16 08:42 Resp 15 06/14/16 08:42 BP 186/92 H 06/14/16 08:42 Pulse Ox 96 06/14/16 08:42 - Orders/Labs/Meds Orders: Active Orders 24 hr Category Date Time Status Pelvis wo Cont [CT] Stat Exams 06/14/16 08:55 Taken Labs: Laboratory Tests 06/14/16 06/14/16 Range/Units 09:08 09:08 WBC 6.1 (4.5-11.0) K/uL RBC 3.83 (3.30-5.50) M/uL Hgb 12.0 (12.0-15.0) g/dL Hct 36.0 (36.0-48.0) % MCV 94 (80-98) fL MCH 31 (27-31) pg MCHC 33 (32-36) % Plt Count 234 (150-400) K/uL Neut % (Auto) 63 (36-66) % Lymph % (Auto) 21 L (24-44) % [place] % (Auto) 11 H (2-6) % Eos % (Auto) 5 H (2-4) % Baso % (Auto) 1 (0-1) % Sodium 141 (140-148) mmol/L Potassium 3.5 L (3.6-5.2) mmol/L Chloride 104 (100-108) mmol/L Carbon Dioxide 28 (21-32) mmol/L Anion Gap 12.5 (5.0-14.0) mmol/L BUN 8 D (7-18) mg/dL Creatinine 0.9 (0.6-1.0) mg/dL Est Cr Clr Drug Dosing 37.03 mL/min Estimated GFR (MDRD) > 60 (>60) Glucose 95 (74-106) mg/dL Calcium 8.7 (8.5-10.1) mg/dL Creatine Kinase 81 (26-192) U/L - Re-Assessments/Exams Free Text/Narrative Re-Assessment/Exam: 06/14/16 09:01 CBC BMP and CPK were obtained along with a pelvis CT without contrast. 06/14/16 10:23 Patient's labs were very normal, CK was normal. CT of the pelvis showed no fracture. At that time the patient was feeling much better so she was ambulated with assistance to assess whether she would be able to return back to assisted living. 06/14/16 10:27 The patient ambulated with assistance, she does have some soreness to the upper left buttock with weightbearing and movement. I have no reason to hospitalize her at this point, she does live in assisted living. She can continue her regular medications Departure - Departure Time of Disposition: 11:40 Disposition: DC/Tfer to [facility] Condition: fair Clinical Impression: Contusion of hip Instructions: Hip Pain Referrals: Zion Cruz MD [Primary Care Provider] - Forms: ED Department Discharge Care Plan Goals: Continue your regular medications, increase activity as tolerated and return or recheck as needed if not improving satisfactorily. - My Orders Last 24 Hours: My Active Orders 06/14/16 08:55 Pelvis wo Cont [CT] Stat - Assessment/Plan Last 24 Hours: My Active Orders 06/14/16 08:55 Pelvis wo Cont [CT] Stat
== END 2016-06-14 11:40 ==
LOC: JP.ED 08:37
DX: S70.02XA Contusion of left hip, initial encounter (principal); I10 Essential (primary) hypertension; G30.9 Alzheimer's disease, unspecified; F02.80 Dementia in other diseases classified elsewhere, unspecified severity, without behavioral disturbance, psychotic disturbance, mood disturbance, and anxiety; Z79.899 Other long term (current) drug therapy; Z88.1 Allergy status to other antibiotic agents; Z88.2 Allergy status to sulfonamides; Z88.5 Allergy status to narcotic agent; Z90.11 Acquired absence of right breast and nipple; Z96.649 Presence of unspecified artificial hip joint; Z98.890 Other specified postprocedural states; Z85.3 Personal history of malignant neoplasm of breast
CPT/HCPCS: 36415; 72192; 80048; 82550; 85025; 99282; 99285-25

== ENCOUNTER 2016-09-25 23:04 | Emergency (ER) | payer MEDICARE, BC ==
[2016-09-25] MEDS ORDERED: Sodium Chloride 0.9% 1,000 ML IV SCH (23:45)
[2016-09-26] MEDS ORDERED: Acetaminophen 1,000 MG in Premix Bag 1 BAG IV ONE (01:29)
[2016-09-26] MEDS ORDERED: Acetaminophen 500 MG Tab PO ONE ×2 (01:47→01:48)
--- NOTE | 2016-09-26 01:55 | EDM.PDOC ---
ED HPI GENERAL MEDICAL PROBLEM - General Chief Complaint: Fever Stated Complaint: MEDICAL [facility] Time Seen by Provider: 09/26/16 00:20 Source of Information: Reports: Patient, Family History Limitations: Reports: No Limitations - History of Present Illness INITIAL COMMENTS - FREE TEXT/NARRATIVE: History of present illness: [81-year-old female with dementia presents from the skilled nursing with a fever. She really has no other complaints other than a mild cough. She denies any sore throat or headache and earache she denies any chest pain or shortness of breath denies any abdominal pain nausea vomiting constipation diarrhea or dysuria.] Review of systems: As per history of present illness and below otherwise all systems reviewed and negative. Past medical history: As per history of present illness and as reviewed below otherwise noncontributory. Surgical history: As per history of present illness and as reviewed below otherwise noncontributory. Social history: No reported history of drug or alcohol abuse. Family history: As per history of present illness and as reviewed below otherwise noncontributory. Physical exam: HEENT: Atraumatic, normocephalic, pupils reactive, negative for conjunctival pallor or scleral icterus, mucous membranes moist, throat clear, neck supple, nontender, trachea midline. Lungs: Clear to auscultation, breath sounds equal bilaterally, chest nontender. Heart: S1S2, regular, negative for clicks, rubs, or JVD. Abdomen: Soft, nondistended, nontender. Negative for masses or hepatosplenomegaly. Negative for costovertebral tenderness. Pelvis: Stable nontender. Genitourinary: Deferred. Rectal: Deferred. Extremities: Atraumatic, negative for cords or calf pain. Neurovascular unremarkable. Neuro: Awake, alert, oriented. Cranial nerves II through XII unremarkable. Cerebellum unremarkable. Motor and sensory unremarkable throughout. Exam nonfocal. Diagnostics: [CBC her white count was normal complete pelvic panel was also done urinalysis looks unremarkable chest x-ray doesn't show any consolidated infiltrates.] Therapeutics: [She's received IV fluids while here and will be giving her some oral Tylenol. Also Rocephin 1 g IM] Impression: [Bronchitis possible early pneumonia] Plan: [We are going to go ahead and treat her with Rocephin and Zithromax blood cultures have been obtained. We'll return her to the skilled nursing and she can return if she is getting sicker] Definitive disposition and diagnosis as appropriate pending reevaluation and review of above. Denies Pain Score (Numeric/FACES): 0 - Related Data Allergies Allergy/AdvReac Type Severity Reaction Status Date / Time amoxicillin trihydrate Allergy Hives Verified 06/01/16 12:05 [From Augmentin] potassium clavulanate Allergy Hives Verified 06/01/16 12:05 [From Augmentin] hydrocodone AdvReac Hallucinati Verified 06/01/16 12:05 ons Sulfa (Sulfonamide AdvReac Vomiting Verified 06/01/16 12:05 Antibiotics) Home Meds: Home Meds RX: Metoprolol Succinate 25 mg PO DAILY 12/15/15 [History] RX: levETIRAcetam [Keppra] 500 mg PO BID #60 tablet 12/16/15 [Rx] Acetaminophen [Tylenol] 325 mg PO Q4H PRN 09/26/16 [History] Citalopram [Celexa] 10 mg PO DAILY 09/26/16 [History] Isosorbide Mononitrate [Isosorbide Mononitrate ER] 60 mg PO DAILY 09/26/16 [ History] RX: Docusate Sodium 100 mg PO Q48H PRN 09/26/16 [History] Past Medical History HEENT History: Reports: Impaired Vision 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: Reports: Hypertension 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: Musculoskeletal History: Reports: Osteoporosis Neurological History: Reports: Alzheimers Disease, Seizure Psychiatric History: Reports: Dementia Hematologic History: Reports: Blood Transfusion(s) Oncologic (Cancer) History: Reports: Breast Dermatologic History: Reports: Psoriasis - Infectious Disease History Infectious Disease History: Reports: Chicken Pox, Measles - Past Surgical History Female Surgical History: Reports: Section, Mastectomy, Other (See Below) Other Female Surgeries/Procedures: right mastectomy Musculoskeletal Surgical History: Reports: Hip Replacement Oncologic Surgical History: Reports: Mastectomy Social & Family History - Family History Family Medical History: Unobtainable - Tobacco Use Smoking Status *Q: Never Smoker Second Hand Smoke Exposure: No - Caffeine Use Caffeine Use: Reports: Coffee Other Caffeine Use: Daily in am. - Alcohol Use Days Per Week of Alcohol Use: 0 Number of Drinks Per Day: 1 Total Drinks Per Week: 0 - Recreational Drug Use Recreational Drug Use: No ED ROS GENERAL - Review of Systems Review Of Systems: ROS reveals no pertinent complaints other than HPI. ED EXAM, GENERAL - Physical Exam Exam: See Below Course - Vital Signs Last Recorded V/S: Last Vital Signs Temp 39.4 C H 09/26/16 00:00 Pulse 111 H 09/26/16 00:00 Resp 16 09/26/16 00:00 BP 169/97 H 09/26/16 00:00 Pulse Ox 87 L 09/26/16 00:00 - Orders/Labs/Meds Orders: Active Orders 24 hr Category Date Time Status Chest 1V Frontal [CR] Stat Exams 09/26/16 00:04 Taken CULTURE BLOOD [BC] Stat Lab 09/25/16 23:55 Received CULTURE BLOOD [BC] Stat Lab 09/26/16 00:01 Received CULTURE STREP A CONFIRMATION [RM] Stat Lab 09/26/16 00:01 Results STREP SCRN A RAPID W CULT CONF [RM] Stat Lab 09/26/16 00:01 Results Acetaminophen [Tylenol Extra Strength] Med 09/26/16 01:47 Once 1,000 mg PO ONETIME ONE Acetaminophen [Tylenol Extra Strength] Med 09/26/16 01:48 Once 1,000 mg PO ONETIME ONE Sodium Chloride 0.9% [Normal Saline] 1,000 ml Med 09/25/16 23:45 Active IV ASDIRECTED Medication Orders Sodium Chloride (Normal Saline) 1,000 mls @ 200 mls/hr IV ASDIRECTED MELANIE Last Admin: 09/25/16 23:58 Dose: 200 mls/hr Labs: Laboratory Tests 09/25/16 09/25/16 09/25/16 Range/Units 23:40 23:55 23:55 WBC 9.2 (4.5-11.0) K/uL RBC 3.97 (3.30-5.50) M/uL Hgb 12.3 (12.0-15.0) g/dL Hct 37.1 (36.0-48.0) % MCV 94 (80-98) fL MCH 31 (27-31) pg MCHC 33 (32-36) % Plt Count 208 (150-400) K/uL Neut % (Auto) 90 H (36-66) % Lymph % (Auto) 5 L (24-44) % [place] % (Auto) 4 (2-6) % Eos % (Auto) 1 L (2-4) % Baso % (Auto) 0 (0-1) % ABG Hemoglobin 12.7 (12.0-16.0) g/dL ABG Oxyhemoglobin 63.2 % ABG Carboxyhemoglobin 1.2 (0.0-1.6) % ABG Methemoglobin 0.8 % VBG pH 7.443 (7.350-7.450) VBG pCO2 38.2 mm/Hg VBG pO2 33.9 mm/Hg VBG HCO3 25.8 mmol/L VBG Total CO2 23.1 mmol/L VBG O2 Saturation 64.5 VBG O2 Content 11.2 %vol VBG Base Excess 2.2 mm/L O2 Delivery Device Room air Sodium 135 L (140-148) mmol/L Potassium 3.7 (3.6-5.2) mmol/L Chloride 99 L (100-108) mmol/L Carbon Dioxide 27 (21-32) mmol/L Anion Gap 12.7 (5.0-14.0) mmol/L BUN 8 (7-18) mg/dL Creatinine 1.0 (0.6-1.0) mg/dL Est Cr Clr Drug Dosing 32.73 mL/min Estimated GFR (MDRD) 53 L (>60) Glucose 112 H (74-106) mg/dL Lactic Acid (0.4-2.0) mmol/L Calcium 8.7 (8.5-10.1) mg/dL Total Bilirubin 0.5 D (0.2-1.0) mg/dL AST 25 (15-37) U/L ALT 16 (12-78) U/L Alkaline Phosphatase 87 (46-116) U/L C-Reactive Protein (0.0-0.3) mg/dL Total Protein 7.8 (6.4-8.2) g/dL Albumin 3.6 (3.4-5.0) g/dL Globulin 4.2 H (2.3-3.5) g/dL Albumin/Globulin Ratio 0.9 L (1.2-2.2) Urine Color Urine Appearance Urine pH (4.5-8.0) Ur Specific [place] (1.008-1.030) Urine Protein (NEGATIVE) mg/dL Urine Glucose (UA) (NEGATIVE) mg/dL Urine Ketones (NEGATIVE) mg/dL Urine Occult Blood (NEGATIVE) Urine Nitrite (NEGATIVE) Urine Bilirubin (NEGATIVE) Urine Urobilinogen (NORMAL) mg/dL Ur Leukocyte Esterase (NEGATIVE) Urine RBC (0-5) Urine WBC (0-5) Ur Epithelial Cells Amorphous Sediment Urine Bacteria Urine Mucus 09/25/16 09/25/16 09/26/16 Range/Units 23:55 23:55 00:42 WBC (4.5-11.0) K/uL RBC (3.30-5.50) M/uL Hgb (12.0-15.0) g/dL Hct (36.0-48.0) % MCV (80-98) fL MCH (27-31) pg MCHC (32-36) % Plt Count (150-400) K/uL Neut % (Auto) (36-66) % Lymph % (Auto) (24-44) % [place] % (Auto) (2-6) % Eos % (Auto) (2-4) % Baso % (Auto) (0-1) % ABG Hemoglobin (12.0-16.0) g/dL ABG Oxyhemoglobin % ABG Carboxyhemoglobin (0.0-1.6) % ABG Methemoglobin % VBG pH (7.350-7.450) VBG pCO2 mm/Hg VBG pO2 mm/Hg VBG HCO3 mmol/L VBG Total CO2 mmol/L VBG O2 Saturation VBG O2 Content %vol VBG Base Excess mm/L O2 Delivery Device Sodium (140-148) mmol/L Potassium (3.6-5.2) mmol/L Chloride (100-108) mmol/L Carbon Dioxide (21-32) mmol/L Anion Gap (5.0-14.0) mmol/L BUN (7-18) mg/dL Creatinine (0.6-1.0) mg/dL Est Cr Clr Drug Dosing mL/min Estimated GFR (MDRD) (>60) Glucose (74-106) mg/dL Lactic Acid 2.2 H (0.4-2.0) mmol/L Calcium (8.5-10.1) mg/dL Total Bilirubin (0.2-1.0) mg/dL AST (15-37) U/L ALT (12-78) U/L Alkaline Phosphatase (46-116) U/L C-Reactive Protein 0.43 H (0.0-0.3) mg/dL Total Protein (6.4-8.2) g/dL Albumin (3.4-5.0) g/dL Globulin (2.3-3.5) g/dL Albumin/Globulin Ratio (1.2-2.2) Urine Color Yellow Urine Appearance Clear Urine pH 8.0 (4.5-8.0) Ur Specific [place] 1.015 (1.008-1.030) Urine Protein 30 H (NEGATIVE) mg/dL Urine Glucose (UA) Normal (NEGATIVE) mg/dL Urine Ketones Negative (NEGATIVE) mg/dL Urine Occult Blood Negative (NEGATIVE) Urine Nitrite Negative (NEGATIVE) Urine Bilirubin Negative (NEGATIVE) Urine Urobilinogen Normal (NORMAL) mg/dL Ur Leukocyte Esterase Negative (NEGATIVE) Urine RBC 0-5 (0-5) Urine WBC 0-5 (0-5) Ur Epithelial Cells Few Amorphous Sediment Few Urine Bacteria Few Urine Mucus Not seen Meds: Medications Generic Name Dose Route Start Last Admin Trade Name Freq PRN Reason Stop Dose Admin Sodium Chloride 1,000 mls @ 200 mls/hr 09/25/16 23:45 09/25/16 23:58 Normal Saline IV 200 mls/hr ASDIRECTED MELANIE Administration Discontinued Medications Generic Name Dose Route Start Last Admin Trade Name Freq PRN Reason Stop Dose Admin Acetaminophen 1,000 mg/ Premix 100 mls @ 400 mls/hr 09/26/16 01:29 IV 09/26/16 01:43 NOW ONE Departure - Departure Time of Disposition: 01:55 Disposition: DC/Tfer to [facility] Condition: Fair Clinical Impression: Bronchitis - Discharge Information Forms: ED Department Discharge Additional Instructions: If over the next 2-3 days or not improving and getting worse I would like you to return to the emergency room for another evaluation. - My Orders Last 24 Hours: My Active Orders 09/25/16 23:45 Sodium Chloride 0.9% [Normal Saline] 1,000 ml IV ASDIRECTED 09/25/16 23:55 CULTURE BLOOD [BC] Stat 09/26/16 00:01 CULTURE BLOOD [BC] Stat CULTURE STREP A CONFIRMATION [RM] Stat STREP SCRN A RAPID W CULT CONF [RM] Stat 09/26/16 00:04 Chest 1V Frontal [CR] Stat 09/26/16 01:47 Acetaminophen [Tylenol Extra Strength] 1,000 mg PO ONETIME ONE 09/26/16 01:48 Acetaminophen [Tylenol Extra Strength] 1,000 mg PO ONETIME ONE - Assessment/Plan Last 24 Hours: My Active Orders 09/25/16 23:45 Sodium Chloride 0.9% [Normal Saline] 1,000 ml IV ASDIRECTED 09/25/16 23:55 CULTURE BLOOD [BC] Stat 09/26/16 00:01 CULTURE BLOOD [BC] Stat CULTURE STREP A CONFIRMATION [RM] Stat STREP SCRN A RAPID W CULT CONF [RM] Stat 09/26/16 00:04 Chest 1V Frontal [CR] Stat 09/26/16 01:47 Acetaminophen [Tylenol Extra Strength] 1,000 mg PO ONETIME ONE 09/26/16 01:48 Acetaminophen [Tylenol Extra Strength] 1,000 mg PO ONETIME ONE
[2016-09-26] MEDS ORDERED: cefTRIAXone 1 GM, Lidocaine 1% 2.1 ML IM ONE ×2 (01:56)
[2016-09-26 02:27] VITALS: BP 158/94
--- NOTE | 2016-09-26 09:12 | CR ---
Mild cardiomegaly. No focal consolidation. Mild interstitial thickening which may be chronic or mild interstitial edema. Streaky density left lung base may indicate atelectasis only. Difficult to excl ude developing infiltrate.
== END 2016-09-26 02:27 ==
LOC: JP.ED 23:04
DX: J40 Bronchitis, not specified as acute or chronic (principal); I10 Essential (primary) hypertension; Z88.1 Allergy status to other antibiotic agents; Z88.2 Allergy status to sulfonamides; Z88.5 Allergy status to narcotic agent; Z88.6 Allergy status to analgesic agent; Z79.899 Other long term (current) drug therapy; Z98.890 Other specified postprocedural states; Z96.649 Presence of unspecified artificial hip joint
CPT/HCPCS: 36415; 71010; 80053; 81001; 82803; 83605; 85025; 86140; 87040; 87081; 87430; 87804; 96360; 96361; 96372; 99285; A9270; J0696; J7040; 99284

== ENCOUNTER 2017-02-07 00:34 | Inpatient (IN) | payer MEDICARE, BC ==
[2017-02-07] MEDS ORDERED: Ondansetron 4 MG/2 ML SDV IVPUSH ONE (00:35)
--- NOTE | 2017-02-07 00:42 | EDM.PDOC ---
ED HPI GENERAL MEDICAL PROBLEM - General Chief Complaint: Head Injury Stated Complaint: FALL VIA [place]TH Time Seen by Provider: 02/07/17 00:35 Source of Information: Reports: EMS History Limitations: Reports: Other (dementia) - History of Present Illness INITIAL COMMENTS - FREE TEXT/NARRATIVE: 81 yo female here via EMS from a local [facility] after a fall with head injury. Fall was not witnessed. Vomited for EMS. They noted a large laceration to the R side of her face. Was talking for them. Is not on warfarin. No other injuries noted en route. Uncertain about timing of injury. Is a DNR patient. Onset: Today, Unknown/Unsure Onset Date: 02/07/17 Duration: Other (minutes to hours?) Location: Reports: Head, Face (Right side) - Related Data Allergies Allergy/AdvReac Type Severity Reaction Status Date / Time amoxicillin trihydrate Allergy Hives Verified 06/01/16 12:05 [From Augmentin] potassium clavulanate Allergy Hives Verified 06/01/16 12:05 [From Augmentin] hydrocodone AdvReac Hallucinati Verified 06/01/16 12:05 ons Sulfa (Sulfonamide AdvReac Vomiting Verified 06/01/16 12:05 Antibiotics) Home Meds: Home Meds Metoprolol Succinate 25 mg PO DAILY 12/15/15 [History] levETIRAcetam [Keppra] 500 mg PO BID #60 tablet 12/16/15 [Rx] Acetaminophen [Tylenol] 325 mg PO Q4H PRN 09/26/16 [History] Citalopram [Celexa] 10 mg PO DAILY 09/26/16 [History] Docusate Sodium 100 mg PO Q48H PRN 09/26/16 [History] Isosorbide Mononitrate [Isosorbide Mononitrate ER] 60 mg PO DAILY 09/26/16 [ History] Past Medical History HEENT History: Reports: Impaired Vision 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: Reports: Hypertension [employer]ILITY [employer] History: Reports: Musculoskeletal History: Reports: Osteoporosis Neurological History: Reports: Alzheimers Disease, Seizure Psychiatric History: Reports: Dementia Hematologic History: Reports: Blood Transfusion(s) Oncologic (Cancer) History: Reports: Breast Dermatologic History: Reports: Psoriasis - Infectious Disease History Infectious Disease History: Reports: Chicken Pox, Measles - Past Surgical History Female Surgical History: Reports: Section, Mastectomy, Other (See Below) Other Female Surgeries/Procedures: right mastectomy Musculoskeletal Surgical History: Reports: Hip Replacement Oncologic Surgical History: Reports: Mastectomy Social & Family History - Family History Family Medical History: Unobtainable - Tobacco Use Smoking Status *Q: Never Smoker Second Hand Smoke Exposure: No - Caffeine Use Caffeine Use: Reports: Coffee Other Caffeine Use: Daily in am. - Alcohol Use Days Per Week of Alcohol Use: 0 Number of Drinks Per Day: 1 Total Drinks Per Week: 0 - Recreational Drug Use Recreational Drug Use: No ED ROS GENERAL - Review of Systems Review Of Systems: Unable To Obtain (dementia) ED EXAM, HEAD INJURY - Physical Exam Exam: See Below Exam Limited By: No Limitations General Appearance: Alert, WD/WN, Mild Distress Head: Scalp Lacerations, Facial Lacerations (R sided laceration, large, dressing in place on arrival per EMS.) Eyes: Bilateral Eye: PERRL Ears: Normal External Exam, Normal Canal, Normal TMs Nose: Normal Inspection, Normal Mucousa, No Blood Throat/Mouth: Normal Inspection, Normal Voice, No Airway Compromise Respiratory: No Respiratory Distress, Lungs Clear, Normal Breath Sounds, No Accessory Muscle Use Cardiovascular: Regular Rate, Rhythm, No Edema GI/Abdominal Exam: Normal Bowel Sounds, Soft, Non-Tender, No Distention Back Exam: Normal Inspection. 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 ) - Marisol Coma Score Best Eye Response (Marisol): (4) Open Spontaneously Best Verbal Response (Kilgore): (4) Confused Conversation Best Motor Response (Kilgore): (5) Localizes to Pain Kilgore Total: 13 (score likely influenced by dementia of patient) ED LACERATION/WOUND & LINDA PROC - Laceration/Wound Repair Right Lateral Head Appearance: Subcutaneous, Linear, Clean Distal NVT: Neuro & Vascular Intact Anesthetic Type: Local Local Anesthesia - Lidocaine (Xylocaine): 1% with EPI Local Anesthetic Volume: 3cc Skin Prep: Saline Closed with: Sutures Suture Size: other (5-0 Ethilon) # of Sutures: 7 Suture Type: Nylon, Simple Drain Placement: No Sterile Dressing Applied: Nurse Tetanus Status Addressed: Yes Complications: No Course - Vital Signs Last Recorded V/S: Last Vital Signs Temp 36.5 C 02/07/17 00:47 Pulse 65 02/07/17 01:37 Resp 16 02/07/17 01:37 BP 116/55 L 02/07/17 01:37 Pulse Ox 89 L 02/07/17 01:37 - Orders/Labs/Meds Orders: Active Orders 24 hr Category Date Time Status Vaccines to be Administered [RC] PER UNIT ROUTINE Care 02/07/17 01:08 Active Cervical Spine wo Cont [CT] Stat Exams 02/07/17 00:45 Taken Head wo Cont [CT] Stat Exams 02/07/17 00:36 Taken Sodium Chloride 0.9% [Normal Saline] 1,000 ml Med 02/07/17 00:45 Active IV ASDIRECTED Medication Orders Sodium Chloride (Normal Saline) 1,000 mls @ 125 mls/hr IV ASDIRECTED MELANIE Last Admin: 02/07/17 01:29 Dose: 125 mls/hr Meds: Medications Generic Name Dose Route Start Last Admin Trade Name Freq PRN Reason Stop Dose Admin Sodium Chloride 1,000 mls @ 125 mls/hr 02/07/17 00:45 02/07/17 01:29 Normal Saline IV 125 mls/hr ASDIRECTED MELANIE Administration Discontinued Medications Generic Name Dose Route Start Last Admin Trade Name Freq PRN Reason Stop Dose Admin Diphtheria/Tetanus/Acell Pertussis 0.5 ml 02/07/17 01:08 02/07/17 01:29 Adacel IM 02/07/17 01:09 0.5 ml .ONCE ONE Administration Hydrogen Peroxide 237 ml 02/07/17 01:20 02/07/17 01:28 Proxacol 3% TOP 02/07/17 01:21 237 ml ONETIME STA Administration Hydrogen Peroxide Confirm 02/07/17 01:18 02/07/17 01:33 Proxacol 3% Administered 02/07/17 01:19 Not Given Dose 240 ml .ROUTE .STK-MED ONE Lidocaine/Epinephrine 10 ml 02/07/17 01:37 02/07/17 01:42 Xylocaine 1% With Epinephrine 1:100,000 SUBCUT 02/07/17 01:38 10 ml NOW STA Administration Ondansetron HCl 4 mg 02/07/17 00:35 02/07/17 00:55 Zofran IVPUSH 02/07/17 00:36 4 mg ONETIME ONE Administration - Radiology Interpretation Free Text/Narrative:: Head CT-intraparenchymal hemorrhage left post. temporal lobe, non-displaced R frontal bone Neck-negative CT Results Date: 02/07/17 CT Results Time: 01:55 Departure - Departure Time of Disposition: 02:11 Disposition: Admitted As Inpatient 66 Condition: Fair Clinical Impression: Concussion injury of brain, Subarachnoid hemorrhage, Intraparenchymal hemorrhage of brain Laceration of scalp with complication Qualifiers: Encounter type: initial encounter Qualified Code(s): S01.01XA - Laceration without foreign body of scalp, initial encounter Dementia Qualifiers: Dementia type: unspecified type Dementia behavioral disturbance: without behavioral disturbance Qualified Code(s): F03.90 - Unspecified dementia without behavioral disturbance - Discharge Information Referrals: PCP,None [Primary Care Provider] - Forms: ED Department Discharge - My Orders Last 24 Hours: My Active Orders 02/07/17 00:36 Head wo Cont [CT] Stat 02/07/17 00:45 Cervical Spine wo Cont [CT] Stat Sodium Chloride 0.9% [Normal Saline] 1,000 ml IV ASDIRECTED 02/07/17 01:08 Vaccines to be Administered [RC] PER UNIT ROUTINE - Assessment/Plan Last 24 Hours: My Active Orders 02/07/17 00:36 Head wo Cont [CT] Stat 02/07/17 00:45 Cervical Spine wo Cont [CT] Stat Sodium Chloride 0.9% [Normal Saline] 1,000 ml IV ASDIRECTED 02/07/17 01:08 Vaccines to be Administered [RC] PER UNIT ROUTINE
[2017-02-07] MEDS ORDERED: Sodium Chloride 0.9% 1,000 ML IV SCH ×2 (00:45→04:45)
[2017-02-07] MEDS ORDERED: Diphtheria,Pertussis(Acell),Tetanus Vaccine 0.5 ML SDV IM ONE (01:08)
[2017-02-07] MEDS ORDERED: Hydrogen Peroxide 3% Top Soln 240 ML Bottle ONE (01:18)
[2017-02-07] MEDS ORDERED: Hydrogen Peroxide 3% Top Soln 240 ML Bottle TOP STA (01:20)
[2017-02-07] MEDS ORDERED: Lidocaine 1% with EPINEPHrine 1:100,000 50 ML MDV SUBCUT STA (01:37)
[2017-02-07] MEDS ORDERED: Acetaminophen 325 MG Tab PO PRN (04:27)
[2017-02-07] MEDS ORDERED: Morphine 10 MG/0.5 ML Oral Syringe PO PRN (04:28)
[2017-02-07] MEDS ORDERED: LORazepam ORAL Concentrate 1MG/0.5ML U/D PO PRN ×2 (04:28→04:48)
--- NOTE | 2017-02-07 09:19 | HP ---
IDENTIFYING DATA: Jennifer Schuler is an 81-year-old female from the [facility] at [facility]. CHIEF COMPLAINT: Fall and head injury. HISTORY OF PRESENT ILLNESS: Elderly female has noted history of cognitive impairment secondary to Alzheimer's type dementia. She is currently residing at the Memory Unit at [facility]. She had an unwitnessed fall and reportedly was found on the floor with a large right temporal laceration. She was transferred to the emergency room for further evaluation. She had a laceration repair completed in the emergency room. CT imaging of the cervical spine showed no evidence of acute injury. CT imaging of the head confirmed a nondisplaced right frontal skull fracture with a contrecoup injury including a left posterior temporal lobe intraparenchymal bleed of acute presentation. Due to her head injury and reported neurologic changes, she is admitted for observation. Family confirms that she is a comfort care candidate, do not desire aggressive interventional therapy, and she is therefore [facility] for [facility] initial management. She has no documented history of previous stroke. She has had prior falls with skeletal injuries. Dementia is progressive. She is no longer able to live independently. PAST MEDICAL HISTORY: Records indicate a history of degenerative arthritis with bilateral total hip replacements, renal insufficiency, and hypertension. Additionally, she has had a past history of brainstem hemorrhage with accompanying seizure disorder prompting use of anticonvulsant therapies. ALLERGIES: REPORTED TO AUGMENTIN, SULFA, AND HALLUCINATIONS WITH USE OF VICODIN. IMMUNIZATIONS: Has received her annual flu vaccine, pneumococcal vaccine series is completed. CURRENT MEDICATIONS: 1. Citalopram 10 mg daily. 2. Lorazepam 0.5 mg q.4 hours p.r.n. anxiety. 3. Metoprolol succinate 25 mg daily. 4. Isosorbide mononitrate 60 mg daily. 5. Docusate sodium 100 mg b.i.d. 6. Acetaminophen 325 mg q.4 hours p.r.n. pain. 7. Keppra 500 mg b.i.d. ADDITIONAL AND PREVIOUS SURGERIES: Include bilateral total hip arthroplasties and right mastectomy for primary breast cancer. HABITS: Unable to provide information. Records indicate nonsmoker by history. SOCIAL HISTORY: Declining cognitive state, currently residing at a Dementia Unit. Family is available at time of ER presentation to provide factual information in aiding decision making. They do confirm a DNR/DNI status. Requesting comfort cares only. FAMILY HISTORY: Unable to obtain. REVIEW OF SYSTEMS: NEUROLOGIC: No reports of visual impairment, hearing loss, or previous focal weakness, but does have a noted history of remote brainstem hemorrhagic infarct. CARDIAC: History of ischemic heart disease. No recent noted complaints of pain, shortness of breath, or congestive heart failure. No history of diabetes. RESPIRATORY: No recent respiratory infections reported. No known history of obstructive pulmonary disease. No cough or sputum production. GASTROINTESTINAL: No records of abdominal upset. She does take a standard diet. GENITOURINARY: Continent of urine. Noted history of renal insufficiency. MUSCULOSKELETAL: Hip arthritis with hip replacements. No other complaints of arthralgias. PHYSICAL EXAMINATION: GENERAL: Appearance is that of a somnolent, disoriented though arousable female. She currently denies pain. VITAL SIGNS: Temperature 36.5 degrees centigrade, blood pressure 116/55, respiratory rate 16, pulse 65, and O2 saturations 89% on room air. HEENT: Large dressing is noted over her repaired laceration at the right temporal region. She does have developing ecchymosis about the eyes. Extraocular eye movements appear to be symmetric without a drift or dysconjugate gaze. No facial asymmetries are noted. She does open her mouth on command. Speech is intelligible. NECK: No apparent pain with rotational movement. Brisk carotid pulses. No bruits or JVD. LUNGS: Symmetrical and clear. HEART: Regular without murmurs or gallops heard. ABDOMEN: Thin, soft, and nontender. No organomegaly. Active sounds. Good femoral pulses. No abdominal bruits. No apparent CVA pain. GENITOURINARY: Omitted. RECTAL EXAM: Omitted. EXTREMITIES: She has a developing bruise at the right deltoid area, palpable tenderness though does allow pain-free motion at the right shoulder. No palpable tenderness at the clavicle or right scapula. She has no bruising to the distal upper extremities, hips and knees, or feet. Arterial pulses at the radial, posterior, tibial and dorsal pedal regions are intact. Brisk capillary refill. NEUROLOGIC: She shows symmetrical strength and tone in the upper and lower extremities. Follows simple commands including bilateral hand squeeze. Babinski is not present. Biceps brachioradialis and patellar DTRs are symmetrical on testing done. She is disoriented to place and time. Does engage in conversation, though has a short attention span and somnolent state. LABORATORY DATA: WBC 15.4, hemoglobin 10.9, hematocrit 34.6, platelet count 234,000. Sodium 138, potassium 3.4, BUN 10, creatinine 0.8, glucose 138, calcium 8.1. CT imaging as noted above. IMPRESSION: 1. Fall with resultant right temporal laceration, right frontal skull fracture nondisplaced, and contrecoup injury with left posterior temporal lobe intraparenchymal bleed. 2. Progressive Alzheimer's type dementia. 3. History of coronary artery disease. 4. Remote history of brainstem hemorrhage with accompanying seizure disorder. 5. History of degenerative arthritis with previous bilateral hip replacements. PLAN: Family has confirmed that they desire no aggressive interventional therapy. Comfort care. DNR status is to be implemented. We will admit to the medical floor. Request neuro checks. Did request PT/OT and speech therapy services to assess current functional status. Likely will require transfer to the residential setting with ongoing management of her intracranial injury leading to high likelihood of patient's demise. Family is aware of the extent of injury as explained by ER staff. We will abstain from use of antiplatelet and anticoagulant agents in light of her bleed, cautiously administer oral medications and clear liquids advancing as tolerated. Provide assistance with cares, bedrest with elevation of the bed is provided today. We will make concentrated morphine and lorazepam products available to be used on a p.r.n. basis for agitation in general discomfort. Nito Davis MD /[id number]
--- NOTE | 2017-02-07 10:41 | PCM.PN ---
- General Info Date of Service: 02/07/17 Subjective Update: Jennifer is an 81-year-old woman admitted early this morning by Dr. Davis after she fell at the [facility] experiencing a head injury. She was found to have a laceration, CT scan shows evidence of a frontal skull fracture with posterior subarachnoid hemorrhage. Findings were reviewed with her and he has requested that she be comfort care only with no further aggressive interventions or evaluation. She was admitted for observation and has been unresponsive until this morning where she does answer questions and opens her eyes. - Patient Data Vitals - Most Recent: Last Vital Signs Temp 100.2 F 02/07/17 07:57 Pulse 103 H 02/07/17 07:57 Resp 20 02/07/17 07:57 BP 147/88 H 02/07/17 07:57 Pulse Ox 92 L 02/07/17 07:57 Weight - Most Recent: 117 lb 4.575 oz Med Orders - Current: Current Medications Acetaminophen (Tylenol) 325 mg PO Q4H PRN PRN Reason: Headache Citalopram Hydrobromide (Celexa) 10 mg PO DAILY MELANIE Docusate Sodium (Colace) 100 mg PO BID MELANIE Potassium Chloride 40 meq/ (Premix) 100 mls @ 25 mls/hr IV ONETIME ONE Stop: 02/07/17 14:32 Isosorbide Mononitrate (Imdur) 60 mg PO DAILY MELANIE Levetiracetam (Keppra) 500 mg PO BID MELANIE Lorazepam (Ativan Oral Concentrate 1mg/0.5 Ml U/D) 0.5 mg PO Q4H PRN PRN Reason: Agitation Metoprolol Succinate (Toprol Xl) 25 mg PO DAILY MELANIE Morphine Sulfate (Morphine 10 Mg/0.5 Ml Oral Syringe) 2.5 - 5 mg PO Q2H PRN PRN Reason: pain Discontinued Medications Diphtheria/Tetanus/Acell Pertussis (Adacel) 0.5 ml IM .ONCE ONE Stop: 02/07/17 01:09 Last Admin: 02/07/17 01:29 Dose: 0.5 ml Hydrogen Peroxide (Proxacol 3%) 237 ml TOP ONETIME STA Stop: 02/07/17 01:21 Last Admin: 02/07/17 01:28 Dose: 237 ml Hydrogen Peroxide (Proxacol 3%) Confirm Administered Dose 240 ml .ROUTE .STK- MED ONE Stop: 02/07/17 01:19 Last Admin: 02/07/17 01:33 Dose: Not Given Sodium Chloride (Normal Saline) 1,000 mls @ 125 mls/hr IV ASDIRECTED MELANIE Last Admin: 02/07/17 01:29 Dose: 125 mls/hr Sodium Chloride (Normal Saline) 1,000 mls @ 75 mls/hr IV ASDIRECTED MELANIE Lidocaine/Epinephrine (Xylocaine 1% With Epinephrine 1:100,000) 10 ml SUBCUT NOW STA Stop: 02/07/17 01:38 Last Admin: 02/07/17 01:42 Dose: 10 ml Ondansetron HCl (Zofran) 4 mg IVPUSH ONETIME ONE Stop: 02/07/17 00:36 Last Admin: 02/07/17 00:55 Dose: 4 mg - Exam General: Alert, Cooperative, No Acute Distress, Lethargic HEENT: Pupils Equal, Pupils Reactive Lungs: Clear to Auscultation, Normal Respiratory Effort Cardiovascular: Regular Rate, Regular Rhythm, No Murmurs GI/Abdominal Exam: Soft, Non-Tender, No Organomegaly, No Distention Extremities: Non-Tender, No Pedal Edema Skin: Warm, Dry - Problem List Review Problem List Initiated/Reviewed/Updated: Yes - My Orders Last 24 Hours: My Active Orders 02/07/17 10:33 Potassium Chloride [KCL 40 MEQ in Water 100 ML] 40 meq Premix Bag 1 bag IV ONETIME Convert IV to Saline Lock [OM.PC] Routine - Plan Plan:: ASSESSMENT AND PLAN HEAD INJURY-skull fracture with subarachnoid hemorrhage, is requested comfort cares only. -Continue to monitor over the next 24 hours DEMENTIA -Continue outpatient medical regimen SEIZURE DISORDER -Continue current therapy with [facility] PALLIATIVE CARE-as noted does not want further aggressive interventions or evaluation MAINTENANCE ISSUES -DVT prophylaxis; SCUDs, hold on anticoagulation because of subarachnoid hemorrhage -GI prophylaxis; not indicated -Queen catheter; not indicated -Nutrition; regular diet -Nicotine dependence; not required CODE STATUS-DNR/DNI, comfort cares only ADMISSION STATUS-patient will be admitted to inpatient status, expect at least a 2 night hospital stay for evaluation and management of problems as outlined above. At the time of this admission I do not reasonably expected evaluation and management of this problem will require more than a 96 hour hospital stay. DISPOSITION-anticipate discharge back to [facility] versus [facility] placement PRIMARY CARE PROVIDER-
[2017-02-07] MEDS: Citalopram 10 MG Tab PO SCH (10:44)
[2017-02-07] MEDS: Docusate Sodium 100 MG Cap PO SCH ×2 (10:44→22:04)
[2017-02-07] MEDS: Metoprolol Succinate 25 MG Tab.ER PO SCH (10:45)
[2017-02-07] MEDS: Isosorbide Mononitrate 30 MG Tab.ER PO SCH (10:45)
[2017-02-07] MEDS: levETIRAcetam 250 MG Tab PO SCH ×2 (10:45→22:05)
[2017-02-07] MEDS: Potassium Chloride 20 MEQ, Lidocaine 1% 2 ML in Sodium Chloride 0.9% 100 ML IV SCH ×2 (11:47→15:29)
[2017-02-08 07:10] VITALS: BP 118/61
[2017-02-08] MEDS: Metoprolol Succinate 25 MG Tab.ER PO SCH (09:35)
[2017-02-08] MEDS: Docusate Sodium 100 MG Cap PO SCH (09:35)
[2017-02-08] MEDS: levETIRAcetam 250 MG Tab PO SCH (09:35)
[2017-02-08] MEDS: Citalopram 10 MG Tab PO SCH (09:35)
[2017-02-08] MEDS: Isosorbide Mononitrate 30 MG Tab.ER PO SCH (09:35)
--- NOTE | 2017-02-08 12:37 | PCM.DCSUM1 ---
Discharge Summary - Hospital Course Brief History: This patient is a 81-year-old woman admitted through the emergency department after she fell experiencing a head injury. CT scan of the head documented a frontal skull fracture on the right, associated with concussion, intraparenchymal hemorrhage, and subarachnoid hemorrhage. - Discharge Data Discharge Date: 02/08/17 Discharge Disposition: [facility] Condition: Fair - Discharge Diagnosis/Problem(s) (1) Skull fracture SNOMED Code(s): 90090047 ICD Code: S02.91XA - UNSP FRACTURE OF SKULL, INIT ENCNTR FOR CLOSED FRACTURE Status: Acute Current Visit: Yes (2) Concussion injury of brain SNOMED Code(s): 209470546 ICD Code: S06.0X9A - CONCUSSION W LOSS OF CONSCIOUSNESS OF UNSP DURATION, INIT Status: Acute Current Visit: Yes (3) Subarachnoid hemorrhage SNOMED Code(s): 338167087 ICD Code: I60.9 - NONTRAUMATIC SUBARACHNOID HEMORRHAGE, UNSPECIFIED Status : Acute Current Visit: Yes (4) Intraparenchymal hemorrhage of brain SNOMED Code(s): 209503439 ICD Code: I61.9 - NONTRAUMATIC INTRACEREBRAL HEMORRHAGE, UNSPECIFIED Status : Acute Current Visit: Yes (5) Laceration of scalp with complication SNOMED Code(s): 596131835 ICD Code: S01.01XA - LACERATION WITHOUT FOREIGN BODY OF SCALP, INITIAL ENCOUNTER Status: Acute Current Visit: Yes Qualifiers: Encounter type: initial encounter Qualified Code(s): S01.01XA - Laceration without foreign body of scalp, initial encounter (6) Dementia SNOMED Code(s): 71218984 ICD Code: F03.90 - UNSPECIFIED DEMENTIA WITHOUT BEHAVIORAL DISTURBANCE Status: Chronic Current Visit: Yes Qualifiers: Dementia type: unspecified type Dementia behavioral disturbance: without behavioral disturbance Qualified Code(s): F03.90 - Unspecified dementia without behavioral disturbance - Patient Summary/Data Consults: Consultations 02/07/17 04:31 Consult to Occupational Therapy [OT Evaluation and Treatment] [CONS] Routine Please Evaluate and Treat. OT Reason for Consult: fall with head injury This query below is only for informational purposes and is not editable. Admission Diagnosis/Problem: Head injury with skull fracture PT Evaluation and Treatment [CONS] Routine Please Evaluate and Treat. PT Reason for Consult: fall with head injury This query below is only for informational purposes and is not editable. Admission Diagnosis/Problem: Head injury with skull fracture Hospital Course: This patient is an 81-year-old woman who at baseline has cognitive impairment secondary to dementia. She resides at a local assisted living facility/memory care unit. She was seen and evaluated in the emergency department after she fell experiencing a head injury. On initial evaluation was noted to have scalp and subcutaneous hematoma associated with a laceration in the right frontal region. CT scan of the head was obtained showing evidence of a right frontal skull fracture, intraparenchymal hemorrhage, and subarachnoid hemorrhage. She was felt to have experienced a concussion related to the injury. Findings were reviewed with her , he recommended and requested comfort cares only feeling this was consistent with her previously expressed wishes. She was admitted for observation and given IV fluids for hydration. Initially she was only minimally responsive, but later in the morning did become more alert and interactive. During hospital stay was noted to be hypoxic off of oxygen. On further testing had documented oxygen saturations on room air of less than 88% qualifying her for home oxygen. She will be discharged back to the assisted living facility on oxygen 2 L/m via nasal cannula. No further evaluation or testing was performed during the hospital stay her 's previously expressed wishes for comfort care and no further aggressive interventions. She will be discharged back to the assisted living facility, activity will be as tolerated and she will resume her previous diet. Follow-up with primary care will be as needed. - Patient Instructions Diet: Usual Diet as Tolerated Activity: As Tolerated Other/Special Instructions: Please arrange for home oxygen 2 L/m via nasal cannula. Follow-up appointment with primary care provider as needed. DNR/DNI, comfort cares only - Discharge Plan Home Medications: Home Meds Metoprolol Succinate 25 mg PO DAILY 12/15/15 [History] levETIRAcetam [Keppra] 500 mg PO BID #60 tablet 12/16/15 [Rx] Acetaminophen [Tylenol] 325 mg PO Q4H PRN 09/26/16 [History] Docusate Sodium 100 mg PO BID 09/26/16 [History] Isosorbide Mononitrate [Isosorbide Mononitrate ER] 60 mg PO DAILY 09/26/16 [ History] Citalopram Hydrobromide [Celexa] 10 mg PO DAILY 02/07/17 [History] Referrals: PCP,None [Primary Care Provider] - - Patient Data Vitals - Most Recent: Last Vital Signs Temp 98.6 F 02/08/17 07:07 Pulse 71 02/08/17 09:35 Resp 15 02/08/17 07:07 BP 118/61 02/08/17 09:35 Pulse Ox 85 L 02/08/17 11:41 Weight - Most Recent: 117 lb 4.575 oz I&O - Last 24 hours: Intake & Output 02/07/17 02/08/17 02/08/17 22:59 06:59 14:59 Intake Total 800 100 400 Output Total 200 Balance 600 100 400 Lab Results - Last 24 hrs: Laboratory Results - last 24 hr 02/07/17 Range/Units 17:09 Urine Color Yellow Urine Appearance Slightly cloudy Urine pH 6.5 (4.5-8.0) Ur Specific [place] 1.015 (1.008-1.030) Urine Protein Negative (NEGATIVE) mg/dL Urine Glucose (UA) Normal (NEGATIVE) mg/dL Urine Ketones Negative (NEGATIVE) mg/dL Urine Occult Blood Negative (NEGATIVE) Urine Nitrite Negative (NEGATIVE) Urine Bilirubin Negative (NEGATIVE) Urine Urobilinogen 1 (NORMAL) mg/dL Ur Leukocyte Esterase Negative (NEGATIVE) Urine RBC 0-5 (0-5) Urine WBC Not seen (0-5) Ur Epithelial Cells Rare Amorphous Sediment Not seen Urine Bacteria Few Urine Mucus Not seen Med Orders - Current: Current Medications Acetaminophen (Tylenol) 325 mg PO Q4H PRN PRN Reason: Headache Last Admin: 02/07/17 19:08 Dose: 325 mg Citalopram Hydrobromide (Celexa) 10 mg PO DAILY [facility] Last Admin: 02/08/17 09:35 Dose: 10 mg Docusate Sodium (Colace) 100 mg PO BID [facility] Last Admin: 02/08/17 09:35 Dose: 100 mg Isosorbide Mononitrate (Imdur) 60 mg PO DAILY [facility] Last Admin: 02/08/17 09:35 Dose: 60 mg Levetiracetam (Keppra) 500 mg PO BID [facility] Last Admin: 02/08/17 09:35 Dose: 500 mg Lorazepam (Ativan Oral Concentrate 1mg/0.5 Ml U/D) 0.5 mg PO Q4H PRN PRN Reason: Agitation Metoprolol Succinate (Toprol Xl) 25 mg PO DAILY [facility] Last Admin: 02/08/17 09:35 Dose: 25 mg Morphine Sulfate (Morphine 10 Mg/0.5 Ml Oral Syringe) 2.5 - 5 mg PO Q2H PRN PRN Reason: pain Discontinued Medications Diphtheria/Tetanus/Acell Pertussis (Adacel) 0.5 ml IM .ONCE ONE Stop: 02/07/17 01:09 Last Admin: 02/07/17 01:29 Dose: 0.5 ml Hydrogen Peroxide (Proxacol 3%) 237 ml TOP ONETIME STA Stop: 02/07/17 01:21 Last Admin: 02/07/17 01:28 Dose: 237 ml Hydrogen Peroxide (Proxacol 3%) Confirm Administered Dose 240 ml .ROUTE .STK- MED ONE Stop: 02/07/17 01:19 Last Admin: 02/07/17 01:33 Dose: Not Given Sodium Chloride (Normal Saline) 1,000 mls @ 125 mls/hr IV ASDIRECTED [facility] Last Admin: 02/07/17 01:29 Dose: 125 mls/hr Sodium Chloride (Normal Saline) 1,000 mls @ 75 mls/hr IV ASDIRECTED [facility] Potassium Chloride 20 meq/Lidocaine HCl 2 ml/ Sodium Chloride 112 mls @ 56 mls/ hr IV Q2H MELANIE Stop: 02/07/17 14:59 Last Admin: 02/07/17 15:29 Dose: 56 mls/hr Lidocaine/Epinephrine (Xylocaine 1% With Epinephrine 1:100,000) 10 ml SUBCUT NOW STA Stop: 02/07/17 01:38 Last Admin: 02/07/17 01:42 Dose: 10 ml Ondansetron HCl (Zofran) 4 mg IVPUSH ONETIME ONE Stop: 02/07/17 00:36 Last Admin: 02/07/17 00:55 Dose: 4 mg *Q Meaningful Use (DIS) - VTE *Q VTE Criteria *Q: - Stroke *Q Stroke Criteria *Q: - AMI *Q AMI Criteria *Q:
[2017-02-08] MEDS ORDERED: Bacitracin Oint 1 GM U/D Packet TOP ONE (13:50)
== END 2017-02-08 14:15 | DRG 604 ==
LOC: JP.ED 00:34 → JP.MS 02:17
PROVIDERS: ADMIT Family Medicine; ATTEND Family Medicine
PROC: 0HQ0XZZ Repair Scalp Skin, External Approach (ICD-10-PCS; principal; 2017-02-07)
DX: S01.81XA Laceration without foreign body of other part of head, initial encounter (principal); S06.6X9A Traumatic subarachnoid hemorrhage with loss of consciousness of unspecified duration, initial encounter; S02.0XXA Fracture of vault of skull, initial encounter for closed fracture; G40.909 Epilepsy, unspecified, not intractable, without status epilepticus; Z23 Encounter for immunization; G30.9 Alzheimer's disease, unspecified; F02.80 Dementia in other diseases classified elsewhere, unspecified severity, without behavioral disturbance, psychotic disturbance, mood disturbance, and anxiety; Z51.5 Encounter for palliative care; Z66 Do not resuscitate; I10 Essential (primary) hypertension; W19.XXXA Unspecified fall, initial encounter; Y92.129 Unspecified place in nursing home as the place of occurrence of the external cause; R40.2412 Glasgow coma scale score 13-15, at arrival to emergency department; R09.02 Hypoxemia; Z99.81 Dependence on supplemental oxygen; Z85.3 Personal history of malignant neoplasm of breast; H54.7 Unspecified visual loss; M19.90 Unspecified osteoarthritis, unspecified site; Z90.11 Acquired absence of right breast and nipple; Z96.643 Presence of artificial hip joint, bilateral; Z88.1 Allergy status to other antibiotic agents; Z88.5 Allergy status to narcotic agent; Z88.2 Allergy status to sulfonamides
CPT/HCPCS: 12001; 36415; 70450; 72125; 80048; 85027; 90471; 90715; 96361; 96374; 99285; J2405; J7040; 81001; 99284-25; A9270-GY; J3480; J7030

== ENCOUNTER 2017-03-25 05:10 | Day surgery (SDC) | payer MEDICARE, BC ==
--- NOTE | 2017-03-25 05:51 | EDM.PDOC ---
ED HPI GENERAL MEDICAL PROBLEM - General Chief Complaint: Upper Extremity Injury/Pain Stated Complaint: MEDICAL VIA NORTH - FALL Time Seen by Provider: 03/25/17 05:25 Source of Information: Reports: Patient, EMS History Limitations: Reports: No Limitations - History of Present Illness INITIAL COMMENTS - FREE TEXT/NARRATIVE: 82-year-old female, resident of [facility] has had several falls lately. This morning she fell and sustained an injury to her left wrist and also has a small laceration to the posterior scalp. No loss of consciousness, no headache, her only complaint is wrist pain. They noticed swelling, pain and slight deformity of the wrist so called the ambulance to bring her in for evaluation. She has a healing abrasion in the right lateral forehead from her recent fall. Location: Reports: Head, Upper Extremity, Left Associated Symptoms: Reports: Weakness Treatments PHYSICIAN RELATIONS MANAGER: Reports: Splint(s) Left Wrist Pain Score (Numeric/FACES): 4 - Related Data Allergies Allergy/AdvReac Type Severity Reaction Status Date / Time amoxicillin trihydrate Allergy Hives Verified 03/25/17 05:54 [From Augmentin] potassium clavulanate Allergy Hives Verified 03/25/17 05:54 [From Augmentin] hydrocodone AdvReac Hallucinati Verified 03/25/17 05:54 ons Sulfa (Sulfonamide AdvReac Vomiting Verified 03/25/17 05:54 Antibiotics) Home Meds: Home Meds Metoprolol Succinate 25 mg PO DAILY 12/15/15 [History] Acetaminophen [Tylenol] 325 mg PO Q4H PRN 09/26/16 [History] Docusate Sodium 100 mg PO BID 09/26/16 [History] Isosorbide Mononitrate [Isosorbide Mononitrate ER] 60 mg PO DAILY 09/26/16 [ History] Citalopram Hydrobromide [Celexa] 10 mg PO DAILY 02/07/17 [History] Nitrofurantoin Monohyd/M-Cryst [Macrobid 100 mg Capsule] 100 mg PO BID 7 Days # 14 capsule 03/25/17 [Rx] levETIRAcetam [Levetiracetam] 250 mg PO BID 03/25/17 [History] traMADol [Ultram] 50 mg PO Q6H PRN #60 tab 03/25/17 [Rx] Past Medical History HEENT History: Reports: Impaired Vision 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: Reports: Hypertension 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: Musculoskeletal History: Reports: Osteoporosis Neurological History: Reports: Alzheimers Disease, Seizure, Other (See Below) Other Neuro History: Nontraumatic brainstem hemorrhage Psychiatric History: Reports: Dementia Hematologic History: Reports: Blood Transfusion(s) Oncologic (Cancer) History: Reports: Breast Dermatologic History: Reports: Psoriasis - Infectious Disease History Infectious Disease History: Reports: Chicken Pox, Measles - Past Surgical History Female Surgical History: Reports: Section, Mastectomy, Other (See Below) Other Female Surgeries/Procedures: right mastectomy Musculoskeletal Surgical History: Reports: Arthroscopic Knee, Hip Replacement Oncologic Surgical History: Reports: Mastectomy Social & Family History - Family History Family Medical History: Unobtainable - Tobacco Use Smoking Status *Q: Never Smoker Second Hand Smoke Exposure: No - Caffeine Use Caffeine Use: Reports: Coffee Other Caffeine Use: Daily in am. - Alcohol Use Days Per Week of Alcohol Use: 0 Number of Drinks Per Day: 1 Total Drinks Per Week: 0 - Recreational Drug Use Recreational Drug Use: No Review of Systems - Review of Systems Review Of Systems: See Below Constitutional: Denies: Fever Respiratory: Denies: Shortness of Breath Cardiovascular: Denies: Chest Pain GI/Abdominal: Denies: Abdominal Pain, Nausea, Vomiting Skin: Reports: Other (Healing abrasion on the right scalp) Neurological: Reports: Weakness, Other (Unsteady, frequent falls). Denies: Dizziness ED EXAM, GENERAL - Physical Exam Exam: See Below Exam Limited By: No Limitations General Appearance: Alert, No Apparent Distress Eye Exam: Bilateral Eye: EOMI Head: Other (Patient has a 3 cm scalp laceration on the occiput, and a healing abrasion on the right upper forehead) Neck: Non-Tender Respiratory/Chest: No Respiratory Distress Cardiovascular: Regular Rate, Rhythm Extremities: Other (Left wrist is very tender to any palpation, has ecchymosis and swelling and slight deformity) Neurological: Alert, Oriented Skin Exam: Other (Bruising is present around the left wrist wrist) Course - Vital Signs Last Recorded V/S: Last Vital Signs Temp 97.5 F 03/26/17 07:00 Pulse 61 03/26/17 11:03 Resp 18 03/26/17 07:00 BP 89/52 L 03/26/17 11:06 Pulse Ox 93 L 03/26/17 07:00 - Orders/Labs/Meds Labs: Laboratory Tests 03/25/17 03/25/17 03/25/17 Range/Units 05:54 05:54 07:00 WBC 12.1 H (4.5-11.0) K/uL RBC 4.05 (3.30-5.50) M/uL Hgb 11.8 L (12.0-15.0) g/dL Hct 36.2 (36.0-48.0) % MCV 89 (80-98) fL MCH 29 (27-31) pg MCHC 33 (32-36) % Plt Count 371 (150-400) K/uL Neut % (Auto) 80 H (36-66) % Lymph % (Auto) 13 L (24-44) % [place] % (Auto) 7 H (2-6) % Eos % (Auto) 0 L (2-4) % Baso % (Auto) 0 (0-1) % Sodium 132 L (140-148) mmol/L Potassium 4.8 (3.6-5.2) mmol/L Chloride 96 L (100-108) mmol/L Carbon Dioxide 27 (21-32) mmol/L Anion Gap 13.8 (5.0-14.0) mmol/L BUN 15 (7-18) mg/dL Creatinine 1.1 H (0.6-1.0) mg/dL Est Cr Clr Drug Dosing 31.06 mL/min Estimated GFR (MDRD) 48 L (>60) Glucose 125 H (74-106) mg/dL Calcium 9.1 (8.5-10.1) mg/dL Urine Color Yellow Urine Appearance Cloudy Urine pH 7.0 (4.5-8.0) Ur Specific [place] 1.010 (1.008-1.030) Urine Protein Negative (NEGATIVE) mg/dL Urine Glucose (UA) Normal (NEGATIVE) mg/dL Urine Ketones Negative (NEGATIVE) mg/dL Urine Occult Blood Negative (NEGATIVE) Urine Nitrite Positive H (NEGATIVE) Urine Bilirubin Negative (NEGATIVE) Urine Urobilinogen Normal (NORMAL) mg/dL Ur Leukocyte Esterase Large (NEGATIVE) Urine RBC Not seen (0-5) Urine WBC Packed H (0-5) Ur Epithelial Cells Few Amorphous Sediment Not seen Urine Bacteria Many Urine Mucus Not seen 03/26/17 03/26/17 Range/Units 04:30 04:30 WBC 8.1 (4.5-11.0) K/uL RBC 3.17 L (3.30-5.50) M/uL Hgb 8.9 L D (12.0-15.0) g/dL Hct 28.8 L (36.0-48.0) % MCV 91 (80-98) fL MCH 28 (27-31) pg MCHC 31 L (32-36) % Plt Count 296 (150-400) K/uL Neut % (Auto) (36-66) % Lymph % (Auto) (24-44) % [place] % (Auto) (2-6) % Eos % (Auto) (2-4) % Baso % (Auto) (0-1) % Sodium 132 L (140-148) mmol/L Potassium 4.7 (3.6-5.2) mmol/L Chloride 101 (100-108) mmol/L Carbon Dioxide 26 (21-32) mmol/L Anion Gap 9.7 (5.0-14.0) mmol/L BUN 17 (7-18) mg/dL Creatinine 1.2 H (0.6-1.0) mg/dL Est Cr Clr Drug Dosing 26.59 mL/min Estimated GFR (MDRD) 43 L (>60) Glucose 119 H (74-106) mg/dL Calcium 8.8 (8.5-10.1) mg/dL Urine Color Urine Appearance Urine pH (4.5-8.0) Ur Specific [place] (1.008-1.030) Urine Protein (NEGATIVE) mg/dL Urine Glucose (UA) (NEGATIVE) mg/dL Urine Ketones (NEGATIVE) mg/dL Urine Occult Blood (NEGATIVE) Urine Nitrite (NEGATIVE) Urine Bilirubin (NEGATIVE) Urine Urobilinogen (NORMAL) mg/dL Ur Leukocyte Esterase (NEGATIVE) Urine RBC (0-5) Urine WBC (0-5) Ur Epithelial Cells Amorphous Sediment Urine Bacteria Urine Mucus Meds: Medications Discontinued Medications Generic Name Dose Route Start Last Admin Trade Name Freq PRN Reason Stop Dose Admin Acetaminophen 1,000 mg 03/25/17 15:15 03/26/17 09:10 Tylenol Extra Strength PO 1,000 mg TID MELANIE Administration Acetaminophen 325 mg 03/25/17 15:26 Tylenol PO Q4H PRN Headache Bupivacaine HCl/Epinephrine Bitart Confirm 03/25/17 09:19 03/25/17 10:42 Marcaine 0.5%/Epinephrine 1:200,000 Administered 03/25/17 09:20 50 ml Dose Administration 50 ml .ROUTE .STK-MED ONE Citalopram Hydrobromide 10 mg 03/26/17 09:00 03/26/17 09:08 Celexa PO 10 mg DAILY MELANIE Administration Dexamethasone Confirm 03/25/17 09:09 Dexamethasone Administered 03/25/17 09:10 Dose 4 mg .ROUTE .STK-MED ONE Docusate Sodium 100 mg 03/25/17 21:00 03/26/17 09:08 Colace PO 100 mg BID MELANIE Administration Fentanyl Confirm 03/25/17 09:08 Sublimaze Administered 03/25/17 09:09 Dose 250 mcg .ROUTE .STK-MED ONE Glycopyrrolate Confirm 03/25/17 09:09 Administered 03/25/17 09:10 Dose 1 mg .ROUTE .STK-MED ONE Hydromorphone HCl 0.25 mg 03/25/17 08:07 Dilaudid IVPUSH Q3H PRN PAIN Sodium Chloride 1,000 mls @ 125 mls/hr 03/25/17 08:15 03/25/17 15:41 Normal Saline IV 25 mls/hr ASDIRECTED MELANIE Administration Clindamycin Phosphate 900 mg/ 106 mls @ 212 mls/hr 03/25/17 10:30 03/25/17 10 :15 Sodium Chloride IV 03/25/17 10:59 212 mls/hr ONCALL ONE Administration Ceftriaxone Sodium 1 gm/ 50 mls @ 100 mls/hr 03/25/17 15:15 03/25/17 15:41 Sodium Chloride IV 03/25/17 15:44 100 mls/hr ONETIME ONE Administration Isosorbide Mononitrate 60 mg 03/25/17 09:00 03/25/17 12:08 Imdur PO 03/25/17 09:01 60 mg ONETIME ONE Administration Isosorbide Mononitrate 60 mg 03/26/17 09:00 03/26/17 11:06 Imdur PO Not Given DAILY MELANIE Levetiracetam 250 mg 03/25/17 09:00 03/25/17 12:07 Keppra PO 03/25/17 09:01 250 mg ONETIME ONE Administration Levetiracetam 250 mg 03/25/17 21:00 03/26/17 09:09 Keppra PO 250 mg BID MELANIE Administration Melatonin 9 mg 03/25/17 21:00 03/25/17 21:29 Melatonin PO 9 mg BEDTIME MELANIE Administration Metoprolol Succinate 25 mg 03/25/17 09:00 03/25/17 12:07 Toprol Xl PO 03/25/17 09:01 25 mg ONETIME ONE Administration Metoprolol Succinate 25 mg 03/26/17 09:00 03/26/17 11:03 Toprol Xl PO 25 mg DAILY MELANIE Administration Neostigmine Methylsulfate Confirm 03/25/17 09:09 Neostigmine Administered 03/25/17 09:10 Dose 5 mg .ROUTE .STK-MED ONE Ondansetron HCl Confirm 03/25/17 09:09 Zofran Administered 03/25/17 09:10 Dose 4 mg .ROUTE .STK-MED ONE Povidone Iodine Confirm 03/25/17 09:19 03/25/17 10:43 Betadine 10% Soln Administered 03/25/17 09:20 10 ml Dose Administration 1 ml .ROUTE .STK-MED ONE Propofol Confirm 03/25/17 09:09 Diprivan 20 Ml Administered 03/25/17 09:10 Dose 200 mg .ROUTE .STK-MED ONE Rocuronium [place] Confirm 03/25/17 09:09 Zemuron Administered 03/25/17 09:10 Dose 50 mg .ROUTE .STK-MED ONE Succinylcholine Chloride Confirm 03/25/17 09:09 Succinylcholine In Ns Pf Administered 03/25/17 09:10 Dose 200 mg .ROUTE .STK-MED ONE Tramadol HCl 50 mg 03/25/17 13:32 Ultram PO Q4H PRN Pain - Re-Assessments/Exams Free Text/Narrative Re-Assessment/Exam: 03/25/17 05:47 3 chery were used to close the scalp laceration, the edges approximated very nicely. These can be removed in 7 days. I talked with Dr. Rakan Bianchi, and he will see the patient later this morning to consider surgical repair of the wrist which showed a comminuted displaced distal radius fracture on x-ray. The splint was left on, her rings were removed. CBC and BMP were obtained. Departure - Departure Time of Disposition: 07:19 Disposition: Admitted As Inpatient 66 Condition: Fair Clinical Impression: Laceration of scalp Qualifiers: Encounter type: initial encounter Qualified Code(s): S01.01XA - Laceration without foreign body of scalp, initial encounter Wrist fracture, left Qualifiers: Encounter type: initial encounter Fracture type: closed Qualified Code(s): S62.102A - Fracture of unspecified carpal bone, left wrist, initial encounter for closed fracture - Discharge Information
[2017-03-25] MEDS: Sodium Chloride 0.9% 1,000 ML IV SCH ×2 (07:30→15:41)
[2017-03-25] MEDS ORDERED: HYDROmorphone 0.5 MG/0.5 ML Syringe IVPUSH PRN (08:07)
[2017-03-25] MEDS ORDERED: levETIRAcetam 250 MG Tab PO ONE (09:00)
[2017-03-25] MEDS ORDERED: Metoprolol Succinate 25 MG Tab.ER PO ONE (09:00)
[2017-03-25] MEDS ORDERED: Isosorbide Mononitrate 30 MG Tab.ER PO ONE (09:00)
[2017-03-25] MEDS ORDERED: fentaNYL 250 MCG/5 ML SDV ONE (09:08)
[2017-03-25] MEDS ORDERED: Succinylcholine/Normal Saline 200 MG/10 ML Syringe ONE (09:09)
[2017-03-25] MEDS ORDERED: Dexamethasone 4 MG/ML SDV ONE (09:09)
[2017-03-25] MEDS ORDERED: Neostigmine Methylsulfate 1 MG/ML 5 ML Syringe ONE (09:09)
[2017-03-25] MEDS ORDERED: Rocuronium 50 MG/5 ML Vial ONE (09:09)
[2017-03-25] MEDS ORDERED: Propofol 200 MG/20 ML SDV ONE (09:09)
[2017-03-25] MEDS ORDERED: Ondansetron 4 MG/2 ML SDV ONE (09:09)
[2017-03-25] MEDS ORDERED: Povidone-Iodine 10% Soln 118.25 ML Bottle ONE (09:19)
[2017-03-25] MEDS ORDERED: Bupivacaine 0.5%/EPINEPHrine 1:200,000 50 ML MDV ONE (09:19)
--- NOTE | 2017-03-25 09:47 | CR ---
Wrist 2V Lt HISTORY: Fall COMPARISON: None FINDINGS: Moderately compacted and angulated comminuted fracture of the radial metaphysis. There is a nterior angulation. Distal ulna appears intact. Carpal bones are intact.
--- NOTE | 2017-03-25 10:24 | PCM.HP ---
H&P History of Present Illness - General Admit Problem/Dx: Admission Diagnosis/Problem Admission Diagnosis/Problem Fracture of head of left radius Source of Information: Patient, Provider History Limitations: Reports: Physical Impairment - History of Present Illness Onset of Symptoms: Reports: Today, Sudden Duration of Symptoms: Reports: Hour(s): Location: Reports: Lower Extremity, Left Quality: Reports: Ache, Pressure, Stabbing, Throbbing Severity: Moderate Improves with: Reports: Immobilization Worsens with: Reports: Movement Associated Symptoms: Reports: No Other Symptoms - Related Data Allergies/Adverse Reactions: Allergies Allergy/AdvReac Type Severity Reaction Status Date / Time amoxicillin trihydrate Allergy Hives Verified 03/25/17 05:54 [From Augmentin] potassium clavulanate Allergy Hives Verified 03/25/17 05:54 [From Augmentin] hydrocodone AdvReac Hallucinati Verified 03/25/17 05:54 ons Sulfa (Sulfonamide AdvReac Vomiting Verified 03/25/17 05:54 Antibiotics) Home Medications: Home Meds Metoprolol Succinate 25 mg PO DAILY 12/15/15 [History] Acetaminophen [Tylenol] 325 mg PO Q4H PRN 09/26/16 [History] Docusate Sodium 100 mg PO BID 09/26/16 [History] Isosorbide Mononitrate [Isosorbide Mononitrate ER] 60 mg PO DAILY 09/26/16 [ History] Citalopram Hydrobromide [Celexa] 10 mg PO DAILY 02/07/17 [History] levETIRAcetam [Levetiracetam] 250 mg PO BID 03/25/17 [History] Past Medical History HEENT History: Reports: Impaired Vision 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: Reports: Hypertension Genitourinary History: Reports: None 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: Musculoskeletal History: Reports: Osteoporosis Neurological History: Reports: Alzheimers Disease, Seizure, Other (See Below) Other Neuro History: Nontraumatic brainstem hemorrhage Psychiatric History: Reports: Dementia Hematologic History: Reports: Blood Transfusion(s) Oncologic (Cancer) History: Reports: Breast Dermatologic History: Reports: Psoriasis - Infectious Disease History Infectious Disease History: Reports: Chicken Pox, Measles - Past Surgical History Female Surgical History: Reports: Section, Mastectomy, Other (See Below) Other Female Surgeries/Procedures: right mastectomy Musculoskeletal Surgical History: Reports: Arthroscopic Knee, Hip Replacement Oncologic Surgical History: Reports: Mastectomy, Other (See Below) Other Oncologic Surgeries/Procedures: Right Mastectomy Social & Family History - Family History Family Medical History: Noncontributory - Tobacco Use Smoking Status *Q: Never Smoker Second Hand Smoke Exposure: No - Caffeine Use Caffeine Use: Reports: Coffee Other Caffeine Use: Daily in am. Caffeine Use Comment: 2 cups/day - Alcohol Use Days Per Week of Alcohol Use: 0 Number of Drinks Per Day: 1 Total Drinks Per Week: 0 - Recreational Drug Use Recreational Drug Use: No H&P Review of Systems - Review of Systems: Review Of Systems: See Below General: Reports: No Symptoms HEENT: Reports: No Symptoms Pulmonary: Reports: No Symptoms Cardiovascular: Reports: No Symptoms Gastrointestinal: Reports: No Symptoms Genitourinary: Reports: No Symptoms Musculoskeletal: Reports: Arm Pain, Muscle Pain, Muscle Stiffness Skin: Reports: No Symptoms Psychiatric: Reports: No Symptoms Neurological: Reports: No Symptoms Hematologic/Lymphatic: Reports: No Symptoms Immunologic: Reports: No Symptoms Exam - Exam Exam: See Below - Vital Signs Vital Signs: Last Vital Signs Temp 98.0 F 03/25/17 07:30 Pulse 85 03/25/17 07:30 Resp 14 03/25/17 07:30 BP 136/69 03/25/17 07:30 Pulse Ox 90 L 03/25/17 07:30 Weight: 102 lb 11.767 oz - Exam General: Alert, Cooperative, Moderate Distress HEENT: PERRLA, Mucosa Moist & [place] Neck: Supple, Trachea Midline Lungs: Clear to Auscultation, Normal Respiratory Effort Cardiovascular: Regular Rate, Regular Rhythm Extremities: Arm Pain, Limited Range of Motion Peripheral Pulses: 2+: Radial (L), Radial (R) Skin: Warm, Dry, Intact Neurological: Cranial Nerves Intact Neuro Extensive - Mental Status: Alert, Normal Mood/Affect, Memory Intact - Patient Data Lab Results Last 24 hrs: Laboratory Results - last 24 hr 03/25/17 Range/Units 07:00 Urine Color Yellow Urine Appearance Cloudy Urine pH 7.0 (4.5-8.0) Ur Specific [place] 1.010 (1.008-1.030) Urine Protein Negative (NEGATIVE) mg/dL Urine Glucose (UA) Normal (NEGATIVE) mg/dL Urine Ketones Negative (NEGATIVE) mg/dL Urine Occult Blood Negative (NEGATIVE) Urine Nitrite Positive H (NEGATIVE) Urine Bilirubin Negative (NEGATIVE) Urine Urobilinogen Normal (NORMAL) mg/dL Ur Leukocyte Esterase Large (NEGATIVE) Urine RBC Not seen (0-5) Urine WBC Packed H (0-5) Ur Epithelial Cells Few Amorphous Sediment Not seen Urine Bacteria Many Urine Mucus Not seen Result Diagrams: 03/25/17 05:54 03/25/17 05:54 *Q Meaningful Use (ADM) - VTE *Q VTE Criteria *Q: - Stroke *Q Stroke Criteria *Q: - AMI *Q AMI Criteria *Q: - Problem List (1) Distal radial fracture SNOMED Code(s): 276632041 ICD Code: S52.509A - UNSP FRACTURE OF THE LOWER END OF UNSP RADIUS, INIT Status: Acute Current Visit: Yes Qualifiers: Encounter type: initial encounter Fracture type: closed Fracture morphology: other intra-articular Laterality: left Qualified Code(s): S52.572A - Other intraarticular fracture of lower end of left radius, initial encounter for closed fracture Problem List Initiated/Reviewed/Updated: Yes Orders Last 24hrs: Active Orders 24 hr Category Date Time Status Admission Status [Patient Status] [ADT] Routine ADT 03/25/17 05:50 Active Communication Order [RC] ROUTINE Care 03/25/17 08:05 Active NPO [Nothing Per Oral Diet] [DIET] Diet 03/25/17 Breakfast Active Fluoro Up To 1Hr [CR] Routine Exams 03/25/17 09:19 Ordered Clindamycin Phosphate [Cleocin] 900 mg Med 03/25/17 10:30 Active Sodium Chloride 0.9% [Normal Saline] 100 ml IV ONCALL HYDROmorphone [Dilaudid] Med 03/25/17 08:07 Active 0.25 mg IVPUSH Q3H PRN Sodium Chloride 0.9% [Normal Saline] 1,000 ml Med 03/25/17 08:15 Active IV ASDIRECTED Code Status [Resuscitation Status] Routine Resus Stat 03/25/17 08:03 Ordered EKG 12 Lead [EK] Routine Ther 03/25/17 09:45 Ordered Medication Orders Hydromorphone HCl (Dilaudid) 0.25 mg IVPUSH Q3H PRN PRN Reason: PAIN Sodium Chloride (Normal Saline) 1,000 mls @ 125 mls/hr IV ASDIRECTED MELANIE Clindamycin Phosphate 900 mg/ (Sodium Chloride) 106 mls @ 212 mls/hr IV ONCALL ONE Stop: 03/25/17 10:59
[2017-03-25] MEDS ORDERED: Clindamycin Phosphate 900 MG in Sodium Chloride 0.9% 100 ML IV ONE (10:30)
[2017-03-25] MEDS ORDERED: traMADol 50 MG Tab PO PRN (13:32)
--- NOTE | 2017-03-25 14:50 | PCM.PN ---
- General Info Date of Service: 03/25/17 Functional Status: Reports: Pain Controlled, Tolerating Diet - Review of Systems Musculoskeletal: Reports: Arm Pain (left elbow and wrist) Systems Review Comment:: Jennifer was admitted this morning for management of a left wrist fracture. Workup just prior to surgery also noted a probable urinary tract infection. She had an uneventful surgery this morning and had operative repair of the radius fracture. Because of her underlying problems including dementia she will remain in the hospital overnight. She reports that her wrist pain is fairly well- controlled. She is having difficulty straightening her left elbow out and reports moderate pain in the elbow. She is pleasant and interactive at this time. - Patient Data Vitals - Most Recent: Last Vital Signs Temp 36.9 C 03/25/17 12:45 Pulse 92 03/25/17 14:00 Resp 16 03/25/17 14:00 BP 111/66 03/25/17 14:00 Pulse Ox 92 L 03/25/17 14:00 Weight - Most Recent: 46.6 kg I&O - Last 24 Hours: Intake & Output 03/24/17 03/25/17 03/25/17 22:59 06:59 14:59 Intake Total 50 Balance 50 Lab Results Last 24 Hours: Laboratory Results - last 24 hr 03/25/17 Range/Units 07:00 Urine Color Yellow Urine Appearance Cloudy Urine pH 7.0 (4.5-8.0) Ur Specific [place] 1.010 (1.008-1.030) Urine Protein Negative (NEGATIVE) mg/dL Urine Glucose (UA) Normal (NEGATIVE) mg/dL Urine Ketones Negative (NEGATIVE) mg/dL Urine Occult Blood Negative (NEGATIVE) Urine Nitrite Positive H (NEGATIVE) Urine Bilirubin Negative (NEGATIVE) Urine Urobilinogen Normal (NORMAL) mg/dL Ur Leukocyte Esterase Large (NEGATIVE) Urine RBC Not seen (0-5) Urine WBC Packed H (0-5) Ur Epithelial Cells Few Amorphous Sediment Not seen Urine Bacteria Many Urine Mucus Not seen Med Orders - Current: Current Medications Citalopram Hydrobromide (Celexa) 10 mg PO DAILY [facility] Hydromorphone HCl (Dilaudid) 0.25 mg IVPUSH Q3H PRN PRN Reason: PAIN Sodium Chloride (Normal Saline) 1,000 mls @ 125 mls/hr IV ASDIRECTED [facility] Last Admin: 03/25/17 07:30 Dose: 125 mls/hr Ceftriaxone Sodium 1 gm/ (Sodium Chloride) 50 mls @ 100 mls/hr IV ONETIME ONE Stop: 03/25/17 15:44 Isosorbide Mononitrate (Imdur) 60 mg PO DAILY MELANIE Levetiracetam (Keppra) 250 mg PO BID MELANIE Metoprolol Succinate (Toprol Xl) 25 mg PO DAILY MELANIE Tramadol HCl (Ultram) 50 mg PO Q4H PRN PRN Reason: Pain Discontinued Medications Bupivacaine HCl/Epinephrine Bitart (Marcaine 0.5%/Epinephrine 1:200,000) Confirm Administered Dose 50 ml .ROUTE .STK-MED ONE Stop: 03/25/17 09:20 Last Admin: 03/25/17 10:42 Dose: 50 ml Dexamethasone (Dexamethasone) Confirm Administered Dose 4 mg .ROUTE .STK-MED ONE Stop: 03/25/17 09:10 Fentanyl (Sublimaze) Confirm Administered Dose 250 mcg .ROUTE .STK-MED ONE Stop: 03/25/17 09:09 Glycopyrrolate () Confirm Administered Dose 1 mg .ROUTE .STK-MED ONE Stop: 03/25/17 09:10 Clindamycin Phosphate 900 mg/ (Sodium Chloride) 106 mls @ 212 mls/hr IV ONCALL ONE Stop: 03/25/17 10:59 Last Admin: 03/25/17 10:15 Dose: 212 mls/hr Isosorbide Mononitrate (Imdur) 60 mg PO ONETIME ONE Stop: 03/25/17 09:01 Last Admin: 03/25/17 12:08 Dose: 60 mg Levetiracetam (Keppra) 250 mg PO ONETIME ONE Stop: 03/25/17 09:01 Last Admin: 03/25/17 12:07 Dose: 250 mg Metoprolol Succinate (Toprol Xl) 25 mg PO ONETIME ONE Stop: 03/25/17 09:01 Last Admin: 03/25/17 12:07 Dose: 25 mg Neostigmine Methylsulfate (Neostigmine) Confirm Administered Dose 5 mg .ROUTE .STK-MED ONE Stop: 03/25/17 09:10 Ondansetron HCl (Zofran) Confirm Administered Dose 4 mg .ROUTE .STK-MED ONE Stop: 03/25/17 09:10 Povidone Iodine (Betadine 10% Soln) Confirm Administered Dose 1 ml .ROUTE .STK- MED ONE Stop: 03/25/17 09:20 Last Admin: 03/25/17 10:43 Dose: 10 ml Propofol (Diprivan 20 Ml) Confirm Administered Dose 200 mg .ROUTE .STK-MED ONE Stop: 03/25/17 09:10 Rocuronium [place] (Zemuron) Confirm Administered Dose 50 mg .ROUTE .STK-MED ONE Stop: 03/25/17 09:10 Succinylcholine Chloride (Succinylcholine In Ns Pf) Confirm Administered Dose 200 mg .ROUTE .STK-MED ONE Stop: 03/25/17 09:10 - Exam Quality Assessment: No: Supplemental Oxygen General: Alert, Cooperative, No Acute Distress Neck: Supple Lungs: Clear to Auscultation, Normal Respiratory Effort Cardiovascular: Regular Rate, Regular Rhythm, Murmurs GI/Abdominal Exam: Normal Bowel Sounds, Soft, No Distention Extremities: No Pedal Edema, Other (left wrist wrapped in CHELSY. Able to wiggle fingers. Left elbow swollen and tender, no warmth) Psy/Mental Status: Alert, Normal Affect - Problem List & Annotations (1) Acute cystitis SNOMED Code(s): 55918668 Code(s): N30.00 - ACUTE CYSTITIS WITHOUT HEMATURIA Status: Acute Current Visit: Yes Qualifiers: Hematuria presence: without hematuria Qualified Code(s): N30.00 - Acute cystitis without hematuria (2) Distal radial fracture SNOMED Code(s): 772766237 Code(s): S52.509A - UNSP FRACTURE OF THE LOWER END OF UNSP RADIUS, INIT Status: Acute Current Visit: Yes Qualifiers: Encounter type: initial encounter Fracture type: closed Fracture morphology: other intra-articular Laterality: left Qualified Code(s): S52.572A - Other intraarticular fracture of lower end of left radius, initial encounter for closed fracture (3) Seizure disorder SNOMED Code(s): 643300829 Code(s): G40.909 - EPILEPSY, UNSP, NOT INTRACTABLE, WITHOUT STATUS EPILEPTICUS Status: Chronic Current Visit: No (4) Dementia SNOMED Code(s): 99702918 Code(s): F03.90 - UNSPECIFIED DEMENTIA WITHOUT BEHAVIORAL DISTURBANCE Status: Chronic Current Visit: No Qualifiers: Dementia type: unspecified type Dementia behavioral disturbance: without behavioral disturbance Qualified Code(s): F03.90 - Unspecified dementia without behavioral disturbance - Problem List Review Problem List Initiated/Reviewed/Updated: Yes - My Orders Last 24 Hours: My Active Orders 03/25/17 14:29 Vital Signs [RC] Q4H 03/25/17 14:31 CULTURE URINE [RM] Routine 03/25/17 14:48 Elbow Min 3V Lt [CR] Routine 03/25/17 15:15 cefTRIAXone [Rocephin] 1 gm Sodium Chloride 0.9% [Normal Saline] 50 ml IV ONETIME 03/25/17 21:00 levETIRAcetam [Keppra] 250 mg PO BID 03/26/17 05:00 BASIC METABOLIC PANEL,BMP [CHEM] Timed CBC W/O DIFF,HEMOGRAM [HEME] Timed (1) 03/26/17 09:00 Citalopram [Celexa] 10 mg PO DAILY Isosorbide Mononitrate [Imdur] 60 mg PO DAILY Metoprolol Succinate [Toprol XL] 25 mg PO DAILY - Plan Plan:: ASSESSMENT AND PLAN - Left wrist fracture - status post operative repair. Pain fairly well-controlled this point. -Postop cares per orthopedic team -scheduled acetaminophen Left elbow pain and swelling - difficulty moving the elbow as well. -X-ray of the left elbow Alzheimer's type dementia - no behavior issues at this time. -Melatonin at bedtime History of seizure disorder - no recent difficulties -Continue Keppra Disposition - anticipate discharge back to the [facility] tomorrow Forest Lamb M.D.
[2017-03-25] MEDS ORDERED: cefTRIAXone 1 GM in Sodium Chloride 0.9% 50 ML IV ONE (15:15)
[2017-03-25] MEDS ORDERED: Acetaminophen 325 MG Tab PO PRN (15:26)
[2017-03-25] MEDS: Acetaminophen 500 MG Tab PO SCH ×2 (15:41→21:29)
--- NOTE | 2017-03-25 19:19 | OR ---
DATE OF PROCEDURE: 03/25/2017 PREOPERATIVE DIAGNOSIS: Left distal radius fracture, intra-articular 3-part, closed. POSTOPERATIVE DIAGNOSIS: Left distal radius fracture, intra-articular 3-part, closed. PROCEDURE PERFORMED: Left distal radius intra-articular radial fracture, open reduction and internal fixation using [employer] plate, application of short-arm splint. VAT PACKER: YOLANDA Ivy Physician clinic office assistant, Leeanna Lala NP, played an essential role in assisting in this case, helping to position the patient, retract structures as needed, as well as suturing and cutting sutures as indicated. Her presence improved patient's safety and decreased operative time. ANESTHESIA: General endotracheal intubation. FLUIDS: Lactated Ringer solution. ESTIMATED BLOOD LOSS: Less than 25 mL. COMPLICATIONS: None. SPECIMEN: None. DISCHARGE DISPOSITION: Stable to PACU. INDICATIONS FOR THE PROCEDURE: The patient is well known to me where we performed a right distal radius open reduction and internal fixation in April on her. She fell at [facility] earlier this morning. She was brought to the emergency department and found to have a left distal radius fracture. We admitted her to same-day surgery. Obtained preoperative laboratory studies as well as the EKG. Preoperative imaging confirmed the above-mentioned diagnosis. Risks and benefits of the procedure were explained to the patient. Informed consent was obtained. DETAILS OF THE PROCEDURE: The patient was seen preoperatively by myself and the Anesthesia staff in the preoperative holding area where the operative site was marked. She was brought to the operative suite by the Anesthesia staff where general anesthesia was administered. All extremities were found to be well-padded. A well-padded tourniquet was placed on the left arm. The left upper extremity was then prepped and draped in sterile manner. Time-out was called identifying the correct patient, the correct procedure, the correct site, and antibiotics had begun within appropriate period of time. An incision was made over the flexor carpi radialis tendon. The tendon was then mobilized radially and protected with Weitlaner. We then went through the dorsal belly of the FCR tendon sheath. I then mobilized the pronator and then used an elevator to expose the distal radial fracture with its segments. I then applied a narrow small plate and then drilled one of the proximal center screws and the radial styloid screw. I confirmed good placement on fluoroscopy. I then filled the rest of our distal and proximal rows and then used the plate to reduce the distal fragment to the shaft and placed our 3 proximal cortical screws. I confirmed good placement on AP and lateral radiographs. We took final films. We then copiously irrigated with saline and then closed with 2-0 Vicryl and 3-0 nylon in horizontal mattress fashion. We then applied sterile dressing and then a short-arm splint. The patient was then transferred back to the PACU in stable condition. Rakan Bianchi DO /[id number]
[2017-03-25] MEDS ORDERED: Melatonin 3 MG Tab PO SCH (21:00)
[2017-03-25] MEDS: levETIRAcetam 250 MG Tab PO SCH (21:28)
[2017-03-25] MEDS: Docusate Sodium 100 MG Cap PO SCH (21:28)
[2017-03-26 07:09] VITALS: BP 89/52
[2017-03-26] MEDS ORDERED: Citalopram 10 MG Tab PO SCH (09:00)
[2017-03-26] MEDS ORDERED: Metoprolol Succinate 25 MG Tab.ER PO SCH (09:00)
[2017-03-26] MEDS ORDERED: Isosorbide Mononitrate 30 MG Tab.ER PO SCH (09:00)
--- NOTE | 2017-03-26 09:00 | CR ---
Elbow Min 3V Lt HISTORY: Fall COMPARISON: None FINDINGS: On the lateral view there appears to be a fracture of the coronoid process of the ulna. The views are limited. On the third image at cannot exclude a subtle fracture to the head of the radius. No significant joint effusion. Distal humerus appears intact. Impression: 1. On the first image there appears to be a mildly displaced fracture of the coronoid process of the ulna. On the third image possible fracture to the head of the radius. Study is limited due to positio monica. Would suggest repeat imaging when patient is able in 5-10 days to reevaluate. Orthopedic consul t is well.
[2017-03-26] MEDS: Docusate Sodium 100 MG Cap PO SCH (09:08)
[2017-03-26] MEDS: levETIRAcetam 250 MG Tab PO SCH (09:09)
[2017-03-26] MEDS: Acetaminophen 500 MG Tab PO SCH (09:10)
--- NOTE | 2017-03-26 11:05 | PCM.DCSUM1 ---
Discharge Summary - Hospital Course Free Text/Narrative:: patient is status postop day 1 of the ORIF of the left wrist. She is doing very well. Patient is still in the splint at this time. Pain is under control with oral pain medication. - Discharge Data Discharge Date: 03/26/17 Discharge Disposition: DC/Tfer to [facility] 03 Condition: Stable - Patient Instructions Diet: Usual Diet as Tolerated Activity: Apply Ice, As Tolerated Driving: Do Not Drive Showering/Bathing: May Shower, No Tub Bathing/Swimming Wound/Incision Care: Keep Operative Site/Wound Site Clean and Dry Notify Provider of: Fever, Increased Pain, Swelling and Redness, Drainage, Nausea and/or Vomiting - Discharge Plan Prescriptions/Med Rec: Nitrofurantoin Monohyd/M-Cryst [Macrobid 100 mg Capsule] 100 mg PO BID 7 Days # 14 capsule traMADol [Ultram] 50 mg PO Q6H PRN #60 tab PRN Reason: Pain Home Medications: Home Meds Metoprolol Succinate 25 mg PO DAILY 12/15/15 [History] Acetaminophen [Tylenol] 325 mg PO Q4H PRN 09/26/16 [History] Docusate Sodium 100 mg PO BID 09/26/16 [History] Isosorbide Mononitrate [Isosorbide Mononitrate ER] 60 mg PO DAILY 09/26/16 [ History] Citalopram Hydrobromide [Celexa] 10 mg PO DAILY 02/07/17 [History] Nitrofurantoin Monohyd/M-Cryst [Macrobid 100 mg Capsule] 100 mg PO BID 7 Days # 14 capsule 03/25/17 [Rx] levETIRAcetam [Levetiracetam] 250 mg PO BID 03/25/17 [History] traMADol [Ultram] 50 mg PO Q6H PRN #60 tab 03/25/17 [Rx] Forms: ED Department Discharge Referrals: Sanam Hopper NP [Primary Care Provider] - - Discharge Summary/Plan Comment DC Time >30 min.: Yes Discharge Summary/Plan Comment: [facility] She is to continue on oral pain medication as needed. We will also send her home on aspirin. She is to follow- up with us in 2 weeks time at which time we'll remove the splint and sutures in place a cast. She is to notify us if she has any other issues in the meantime. - Patient Data Vitals - Most Recent: Last Vital Signs Temp 36.4 C 03/26/17 07:00 Pulse 61 03/26/17 07:00 Resp 18 03/26/17 07:00 BP 89/52 L 03/26/17 07:00 Pulse Ox 93 L 03/26/17 07:00 Weight - Most Recent: 102 lb 11.767 oz I&O - Last 24 hours: Intake & Output 03/25/17 03/26/17 03/26/17 22:59 06:59 14:59 Intake Total 1501 Output Total 200 Balance 1301 Lab Results - Last 24 hrs: Laboratory Results - last 24 hr 03/26/17 03/26/17 Range/Units 04:30 04:30 WBC 8.1 (4.5-11.0) K/uL RBC 3.17 L (3.30-5.50) M/uL Hgb 8.9 L D (12.0-15.0) g/dL Hct 28.8 L (36.0-48.0) % MCV 91 (80-98) fL MCH 28 (27-31) pg MCHC 31 L (32-36) % Plt Count 296 (150-400) K/uL Sodium 132 L (140-148) mmol/L Potassium 4.7 (3.6-5.2) mmol/L Chloride 101 (100-108) mmol/L Carbon Dioxide 26 (21-32) mmol/L Anion Gap 9.7 (5.0-14.0) mmol/L BUN 17 (7-18) mg/dL Creatinine 1.2 H (0.6-1.0) mg/dL Est Cr Clr Drug Dosing 26.59 mL/min Estimated GFR (MDRD) 43 L (>60) Glucose 119 H (74-106) mg/dL Calcium 8.8 (8.5-10.1) mg/dL GILL Results - Last 24 hrs: Microbiology 03/25/17 14:31 Urine Culture - Preliminary Urine, Clean Catch Med Orders - Current: Current Medications Acetaminophen (Tylenol Extra Strength) 1,000 mg PO TID MELANIE Last Admin: 03/26/17 09:10 Dose: 1,000 mg Citalopram Hydrobromide (Celexa) 10 mg PO DAILY [facility] Last Admin: 03/26/17 09:08 Dose: 10 mg Docusate Sodium (Colace) 100 mg PO BID [facility] Last Admin: 03/26/17 09:08 Dose: 100 mg Hydromorphone HCl (Dilaudid) 0.25 mg IVPUSH Q3H PRN PRN Reason: PAIN Isosorbide Mononitrate (Imdur) 60 mg PO DAILY [facility] Levetiracetam (Keppra) 250 mg PO BID [facility] Last Admin: 03/26/17 09:09 Dose: 250 mg Melatonin (Melatonin) 9 mg PO BEDTIME [facility] Last Admin: 03/25/17 21:29 Dose: 9 mg Metoprolol Succinate (Toprol Xl) 25 mg PO DAILY [facility] Tramadol HCl (Ultram) 50 mg PO Q4H PRN PRN Reason: Pain Discontinued Medications Acetaminophen (Tylenol) 325 mg PO Q4H PRN PRN Reason: Headache Bupivacaine HCl/Epinephrine Bitart (Marcaine 0.5%/Epinephrine 1:200,000) Confirm Administered Dose 50 ml .ROUTE .STK-MED ONE Stop: 03/25/17 09:20 Last Admin: 03/25/17 10:42 Dose: 50 ml Dexamethasone (Dexamethasone) Confirm Administered Dose 4 mg .ROUTE .STK-MED ONE Stop: 03/25/17 09:10 Fentanyl (Sublimaze) Confirm Administered Dose 250 mcg .ROUTE .STK-MED ONE Stop: 03/25/17 09:09 Glycopyrrolate () Confirm Administered Dose 1 mg .ROUTE .STK-MED ONE Stop: 03/25/17 09:10 Sodium Chloride (Normal Saline) 1,000 mls @ 125 mls/hr IV ASDIRECTED [facility] Last Admin: 03/25/17 15:41 Dose: 25 mls/hr Clindamycin Phosphate 900 mg/ (Sodium Chloride) 106 mls @ 212 mls/hr IV ONCALL ONE Stop: 03/25/17 10:59 Last Admin: 03/25/17 10:15 Dose: 212 mls/hr Ceftriaxone Sodium 1 gm/ (Sodium Chloride) 50 mls @ 100 mls/hr IV ONETIME ONE Stop: 03/25/17 15:44 Last Admin: 03/25/17 15:41 Dose: 100 mls/hr Isosorbide Mononitrate (Imdur) 60 mg PO ONETIME ONE Stop: 03/25/17 09:01 Last Admin: 03/25/17 12:08 Dose: 60 mg Levetiracetam (Keppra) 250 mg PO ONETIME ONE Stop: 03/25/17 09:01 Last Admin: 03/25/17 12:07 Dose: 250 mg Metoprolol Succinate (Toprol Xl) 25 mg PO ONETIME ONE Stop: 03/25/17 09:01 Last Admin: 03/25/17 12:07 Dose: 25 mg Neostigmine Methylsulfate (Neostigmine) Confirm Administered Dose 5 mg .ROUTE .STK-MED ONE Stop: 03/25/17 09:10 Ondansetron HCl (Zofran) Confirm Administered Dose 4 mg .ROUTE .STK-MED ONE Stop: 03/25/17 09:10 Povidone Iodine (Betadine 10% Soln) Confirm Administered Dose 1 ml .ROUTE .STK- MED ONE Stop: 03/25/17 09:20 Last Admin: 03/25/17 10:43 Dose: 10 ml Propofol (Diprivan 20 Ml) Confirm Administered Dose 200 mg .ROUTE .STK-MED ONE Stop: 03/25/17 09:10 Rocuronium [place] (Zemuron) Confirm Administered Dose 50 mg .ROUTE .STK-MED ONE Stop: 03/25/17 09:10 Succinylcholine Chloride (Succinylcholine In Ns Pf) Confirm Administered Dose 200 mg .ROUTE .STK-MED ONE Stop: 03/25/17 09:10 - Exam General: Reports: Alert, Oriented Extremities: Normal Inspection, Normal Range of Motion Skin: Reports: Warm, Dry, Intact Wound/Incisions: Reports: Healing Well, Dressing Dry and Intact Neurological: Reports: No New Focal Deficit Psy/Mental Status: Reports: Alert *Q Meaningful Use (DIS) - VTE *Q VTE Criteria *Q: - Stroke *Q Stroke Criteria *Q: - AMI *Q AMI Criteria *Q:
== END 2017-03-26 11:09 ==
LOC: JP.ED 05:10 → JP.MS 05:56 → UNDOADMOB 05:56 → JP.SDS 05:59 → JP.MS 11:05 → UNDODISOB 03-26 11:09 → JP.SDS 03-26 11:09
PROVIDERS: ATTEND Orthopaedic Surgery
DX: S52.572A Other intraarticular fracture of lower end of left radius, initial encounter for closed fracture (principal); I12.9 Hypertensive chronic kidney disease with stage 1 through stage 4 chronic kidney disease, or unspecified chronic kidney disease; N18.9 Chronic kidney disease, unspecified; G30.9 Alzheimer's disease, unspecified; F02.80 Dementia in other diseases classified elsewhere, unspecified severity, without behavioral disturbance, psychotic disturbance, mood disturbance, and anxiety; Z88.1 Allergy status to other antibiotic agents; Z88.2 Allergy status to sulfonamides; Z88.8 Allergy status to other drugs, medicaments and biological substances; Z79.899 Other long term (current) drug therapy; X58.XXXA Exposure to other specified factors, initial encounter
CPT/HCPCS: 25609; 36415; 73080; 73100; 76000; 80048; 81001; 85025; 85027; 87086; 87088; 87186; 93005; 93010; 99219; A9270; C1713; J0696; J1100; J2405; J2704; J3010; J7030; J7040; J7050; S0077

== ENCOUNTER 2019-02-14 18:50 | Emergency (ER) | payer MEDICARE, BC ==
[2019-02-14] MEDS ORDERED: fentaNYL 100 MCG/2 ML SDV NASBOTH ONE (19:11)
--- NOTE | 2019-02-14 19:14 | EDM.PDOC ---
ED HPI GENERAL MEDICAL PROBLEM - General Chief Complaint: Lower Extremity Injury/Pain Stated Complaint: FELL [id number] Time Seen by Provider: 02/14/19 19:04 Source of Information: Reports: Patient, Family, RN Notes Reviewed History Limitations: Reports: Physical Impairment - History of Present Illness INITIAL COMMENTS - FREE TEXT/NARRATIVE: 83-year-old senior care resident presents emergency department with a complaint of left hip pain, unfortunately she fell 2 days prior she is ambulatory with a walker has not ambulated since does have a history of bilateral hip replacements. Also this exam is limited because a history of dementia majority this is taken from family members. Unknown mechanism of injury left posterior hip/buttock Pain Score (Numeric/FACES): 6 - Related Data Allergies Allergy/AdvReac Type Severity Reaction Status Date / Time amoxicillin trihydrate Allergy Hives Verified 03/25/17 05:54 [From Augmentin] potassium clavulanate Allergy Hives Verified 03/25/17 05:54 [From Augmentin] hydrocodone AdvReac Hallucinati Verified 03/25/17 05:54 ons Sulfa (Sulfonamide AdvReac Vomiting Verified 03/25/17 05:54 Antibiotics) Home Meds: Home Meds Metoprolol Succinate 12.5 mg PO DAILY 12/15/15 [History] Acetaminophen [Tylenol] 325 mg PO Q4H PRN 09/26/16 [History] Docusate Sodium 100 mg PO BID 09/26/16 [History] Isosorbide Mononitrate [Isosorbide Mononitrate ER] 60 mg PO DAILY 09/26/16 [ History] Citalopram Hydrobromide [Celexa] 10 mg PO DAILY 02/07/17 [History] levETIRAcetam [Levetiracetam] 250 mg PO BID 03/25/17 [History] Phenylephrine/Hypromell/Gly/Pf [Clear Eyes Pure Rlf Multi-Symp] 10 ml OP Q4HR PRN 05/07/17 [History] Brimonidine Tartrate/Timolol [Combigan Eye Drops] 5 ml OP TID 02/14/19 [History] Ibuprofen 200 mg PO Q6H PRN 02/14/19 [History] Mv,Calcium,Min/Iron/Folic/Vitk [Multi For Her Tablet] 1 tab PO DAILY 02/14/19 [ History] Travoprost [Travatan Z 0.004% Ophth Soln] 1 drop OT BEDTIME 02/14/19 [History] Past Medical History HEENT History: Reports: Impaired Vision 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: Reports: Hypertension Genitourinary History: Reports: Renal Disease 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 s/p ORIF right wrist Neurological History: Reports: Alzheimers Disease, Seizure, Other (See Below) Other Neuro History: Nontraumatic brainstem hemorrhage Psychiatric History: Reports: Dementia Hematologic History: Reports: Blood Transfusion(s) Oncologic (Cancer) History: Reports: Breast Dermatologic History: Reports: Psoriasis - Infectious Disease History Infectious Disease History: Reports: Chicken Pox, Measles - Past Surgical History Female Surgical History: Reports: Section, Mastectomy, Other (See Below) Other Female Surgeries/Procedures: right mastectomy Musculoskeletal Surgical History: Reports: Arthroscopic Knee, Hip Replacement Oncologic Surgical History: Reports: Mastectomy Social & Family History - Family History Family Medical History: Unobtainable - Tobacco Use Smoking Status *Q: Never Smoker - Caffeine Use Caffeine Use: Reports: Coffee Other Caffeine Use: Daily in am. Caffeine Use Comment: 2 cups/day - Recreational Drug Use Recreational Drug Use: No Review of Systems - Review of Systems Review Of Systems: See Below Constitutional: Reports: No Symptoms Musculoskeletal: Reports: Joint Pain (Left hip) ED EXAM, GENERAL - Physical Exam Exam: See Below Free Text/Narrative:: Examination left hip I do not appreciate any erythema there is no edema no bruising noted she is tender to palpation over the greater trochanter on the posterior aspect does not tolerate flexion extension or rotation. Also of note she is tender along the medial aspect of the left wrist Exam Limited By: Physical Impairment General Appearance: Alert, No Apparent Distress Head: Other (Bruise appreciated above the left ear) Neck: Normal Inspection, Supple, Non-Tender, Full Range of Motion Respiratory/Chest: No Respiratory Distress Course - Vital Signs Last Recorded V/S: Last Vital Signs Temp 98.3 F 02/14/19 18:53 Pulse 64 02/14/19 19:35 Resp 18 02/14/19 19:35 BP 135/60 02/14/19 19:35 Pulse Ox 95 02/14/19 19:35 - Orders/Labs/Meds Meds: Medications Discontinued Medications Generic Name Dose Route Start Last Admin Trade Name Loren PRN Reason Stop Dose Admin Fentanyl 25 mcg 02/14/19 19:11 02/14/19 19:20 Sublimaze NASBOTH 02/14/19 19:12 25 mcg ONETIME ONE Administration Departure - Departure Time of Disposition: 20:04 Disposition: DC/Tfer to [facility] Condition: Fair Clinical Impression: Left hip pain - Discharge Information Referrals: PCP,None [Primary Care Provider] - Forms: ED Department Discharge Additional Instructions: Continue to use ibuprofen as needed for pain control, order has been placed for physical therapy for evaluation and treatment, please follow-up with your primary care in the next 3 to 5 days for further evaluation if no improvement Sepsis Event Note - Evaluation Sepsis Screening Result: No Definite Risk - Focused Exam Vital Signs: Vital Signs Temp Pulse Resp BP Pulse Ox 02/14/19 19:35 64 18 135/60 95 02/14/19 18:53 98.3 F 66 20 137/70 96 Date Exam was Performed: 02/14/19 Time Exam was Performed: 20:03 - Assessment/Plan Plan: Assessment Acuity = acute Site and laterality = left hip pain Etiology = secondary to fall Manifestations = difficulty with ambulation Location of injury = Home Lab values = x-rays hip pelvis wrist negative for any acute process Plan I did review films with family discussed options elected to proceed with physical therapy for evaluation and treatment and then follow-up with primary care in a 3-5 days if not better This note was dictated using [employer] voice recognition software please call with any questions on syntax or grammar.
[2019-02-14 19:35] VITALS: BP 135/60; PULSE 64
--- NOTE | 2019-02-14 19:47 | CRLCR ---
Indication: Fall. Left wrist pain. Technique: Three views of the left wrist. Comparison: May 07, 2017. Findings: Degenerative changes the restraint defect. Osteopenia is identified. A plate and screws are identified at the level of the distal radius. Impression: Postoperative change. Dictated by Mayi Flores MD @ Feb 14 2019 7:45PM Signed by Dr. Mayi Flores @ Feb 14 2019 7:46PM
--- NOTE | 2019-02-14 19:47 | CRLCR ---
Indication: Fall. Left hip and pelvis pain. Technique: An AP view of the pelvis and two views of the left hip were obtained. Comparison: None Findings: Postoperative changes bilateral hip arthroplasty are identified. The femoral stems are not included on the study. No fracture subluxation is identified. There is no evidence of hardware failure. Impression: Bilateral hip arthroplasty Dictated by Mayi Flores MD @ Feb 14 2019 7:45PM Signed by Dr. Mayi Flores @ Feb 14 2019 7:45PM
== END 2019-02-14 20:25 ==
LOC: JP.ED 18:50
DX: M25.552 Pain in left hip (principal); I10 Essential (primary) hypertension; G30.9 Alzheimer's disease, unspecified; F02.80 Dementia in other diseases classified elsewhere, unspecified severity, without behavioral disturbance, psychotic disturbance, mood disturbance, and anxiety; G40.909 Epilepsy, unspecified, not intractable, without status epilepticus; Z88.0 Allergy status to penicillin; Z88.2 Allergy status to sulfonamides; Z88.5 Allergy status to narcotic agent; Z79.899 Other long term (current) drug therapy
CPT/HCPCS: 73110; 73502; 99285; J3010; 99283

== ENCOUNTER 2019-03-29 02:45 | Emergency (ER) | payer MEDICARE, BC ==
[2019-03-29] MEDS ORDERED: Diphtheria,Pertussis(Acell),Tetanus Vaccine 0.5 ML SDV IM ONE (03:20)
[2019-03-29] MEDS ORDERED: Lidocaine 1% 20 ML MDV INFILT ONE (03:21)
--- NOTE | 2019-03-29 03:31 | EDM.PDOC ---
ED HPI GENERAL MEDICAL PROBLEM - General Stated Complaint: MEDICAL VIA [facility] Time Seen by Provider: 03/29/19 03:00 Source of Information: Reports: Patient, EMS, Family History Limitations: Reports: Altered Mental Status - History of Present Illness INITIAL COMMENTS - FREE TEXT/NARRATIVE: This is an 84-year-old who presents from her assisted living facility after fall. History is limited due to dementia. She was reportedly going to the bathroom, used her walker to get there, then was going back to bed when she fell. EMS hypothesizes that she left the walker in the bathroom. When she fell she struck her head on a door hinge concern from a large laceration on her forehead. Unknown if there was LOC. She is not on any blood thinners. Middle Forehead Pain Score (Numeric/FACES): 8 - Related Data Allergies Allergy/AdvReac Type Severity Reaction Status Date / Time acetaminophen [From Vicodin] Allergy Cannot Verified 03/29/19 03:31 Remember amoxicillin trihydrate Allergy Hives Verified 03/29/19 03:31 [From Augmentin] potassium clavulanate Allergy Hives Verified 03/29/19 03:31 [From Augmentin] hydrocodone AdvReac Hallucinati Verified 03/29/19 03:31 ons Sulfa (Sulfonamide AdvReac Vomiting Verified 03/29/19 03:31 Antibiotics) Home Meds: Home Meds Metoprolol Succinate 12.5 mg PO DAILY 12/15/15 [History] Acetaminophen [Tylenol] 325 mg PO Q4H PRN 09/26/16 [History] Docusate Sodium 100 mg PO BID 09/26/16 [History] Isosorbide Mononitrate [Isosorbide Mononitrate ER] 60 mg PO DAILY 09/26/16 [ History] Citalopram Hydrobromide [Celexa] 10 mg PO DAILY 02/07/17 [History] levETIRAcetam [Levetiracetam] 250 mg PO BID 03/25/17 [History] Phenylephrine/Hypromell/Gly/Pf [Clear Eyes Pure Rlf Multi-Symp] 10 ml OP Q4HR PRN 05/07/17 [History] Brimonidine Tartrate/Timolol [Combigan Eye Drops] 5 ml OP TID 02/14/19 [History] Ibuprofen 200 mg PO Q6H PRN 02/14/19 [History] Mv,Calcium,Min/Iron/Folic/Vitk [Multi For Her Tablet] 1 tab PO DAILY 02/14/19 [ History] Travoprost [Travatan Z 0.004% Ophth Soln] 1 drop OT BEDTIME 02/14/19 [History] Loperamide [Imodium] 4 mg PO Q6H 03/29/19 [History] Loratadine 1 tab PO DAILY 03/29/19 [History] Magnesium Hydroxide [Milk of Magnesia] 30 ml PO ASDIRECTED 03/29/19 [History] Past Medical History HEENT History: Reports: Impaired Vision 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: Reports: Hypertension Genitourinary History: Reports: Renal Disease 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 s/p ORIF right wrist Neurological History: Reports: Alzheimers Disease, Seizure, Other (See Below) Other Neuro History: Nontraumatic brainstem hemorrhage Psychiatric History: Reports: Dementia Hematologic History: Reports: Blood Transfusion(s) Oncologic (Cancer) History: Reports: Breast Dermatologic History: Reports: Psoriasis - Infectious Disease History Infectious Disease History: Reports: Chicken Pox, Measles - Past Surgical History Female Surgical History: Reports: Section, Mastectomy, Other (See Below) Other Female Surgeries/Procedures: right mastectomy Musculoskeletal Surgical History: Reports: Arthroscopic Knee, Hip Replacement Oncologic Surgical History: Reports: Mastectomy Social & Family History - Family History Family Medical History: Unobtainable - Caffeine Use Caffeine Use: Reports: Coffee Other Caffeine Use: Daily in am. Caffeine Use Comment: 2 cups/day Review of Systems - Review of Systems Review Of Systems: Unable To Obtain Reason Not Obtained: dementia ED EXAM, GENERAL - Physical Exam Exam: See Below Exam Limited By: Other (dementia) General Appearance: No Apparent Distress Nose: Normal Inspection Throat/Mouth: Normal Inspection Head: Other (Approximately 5 cm x 5 cm stellate laceration over the forehead. Approx 2 cm laceration right posterior scalp. ) Neck: Non-Tender Respiratory/Chest: Lungs Clear Cardiovascular: Regular Rate, Rhythm GI/Abdominal: Soft, Non-Tender Back Exam: Normal Inspection Extremities: Normal Inspection Neurological: Alert, Other (moving all extremities. following basic commands) Skin Exam: Warm, Dry ED TRAUMA PROCEDURES - Laceration/Wound Repair Middle Forehead Appearance: Subcutaneous, Stellate Anesthetic Type: Local Local Anesthesia - Lidocaine (Xylocaine): 1% Plain Local Anesthetic Volume: 3cc Skin Prep: Saline Exploration/Debridement/Repair: Wound Explored, No Foreign Material Found, Multiple Flaps Aligned Closed With: Sutures, [place] Suture Size: 4-0 # of Sutures: 5 Suture Type: Nylon, Mattress Sterile Dressing Applied: Nurse Tetanus Status Addressed: Yes Complications: No Middle Posterior Head Lac/Wound Length In cm: 4 Appearance: Subcutaneous Skin Prep: Saline Closed With: [place] # of Sutures: 3 Tetanus Status Addressed: Yes Course - Vital Signs Last Recorded V/S: Last Vital Signs Temp 36.8 C 03/29/19 03:24 Pulse 80 03/29/19 03:24 Resp 12 03/29/19 03:24 BP 172/93 H 03/29/19 03:24 Pulse Ox 98 03/29/19 03:24 - Orders/Labs/Meds Orders: Active Orders 24 hr Category Date Time Status Vaccines to be Administered [RC] PER UNIT ROUTINE Care 03/29/19 03:21 Active CXR [Chest 1V Frontal] [CR] Stat Exams 03/29/19 04:46 Taken Meds: Medications Discontinued Medications Generic Name Dose Route Start Last Admin Trade Name Freq PRN Reason Stop Dose Admin Diphtheria/Tetanus/Acell Pertussis 0.5 ml 03/29/19 03:20 03/29/19 03:44 Adacel IM 03/29/19 03:21 Not Given .ONCE ONE Lidocaine HCl 20 ml 03/29/19 03:21 03/29/19 04:10 Xylocaine 1% INFILT 03/29/19 03:22 20 ml ONETIME ONE Administration Midazolam HCl 1 mg 03/29/19 03:51 03/29/19 04:05 Versed 1 Mg/Ml IVPUSH 03/29/19 03:52 1 mg ONETIME ONE Administration - Re-Assessments/Exams Free Text/Narrative Re-Assessment/Exam: 84 yo presents after unwitnessed fall with headstrike. Significant scalp lacerations as outline. No other trauma identified. Will obtain CT head and neck before proceeding with laceration repair. 03/29/19 03:36 Free Text/Narrative Re-Assessment/Exam: CT head and neck negative Lacerations repaired as above, forehead laceration only loosely approximated due to skin fragility. Will plan for wound check at end of weak, but do not anticipate suture removal for 5-7 days. Referral to PCP placed. Tdap up to date. Safe for discharge. 03/29/19 05:02 Departure - Departure Time of Disposition: 05:05 Disposition: Home, Self-Care 01 Clinical Impression: Forehead laceration Qualifiers: Encounter type: initial encounter Qualified Code(s): S01.81XA - Laceration without foreign body of other part of head, initial encounter Fall Qualifiers: Encounter type: initial encounter Qualified Code(s): W19.XXXA - Unspecified fall, initial encounter - Discharge Information Instructions: Laceration Care, Adult Referrals: Zion Cruz MD [Primary Care Provider] - Additional Instructions: Please avoid getting the laceration wet for at least 48 hrs. Jennifer should see her primary doctor on Thursday for a wound check, however we do not anticipate removing the sutures for 5-7 days. Monitor the wound for redness or drainage as these may be signs of infection. Please return to the emergency room if she develop difficulty breathing, abdominal pain, or other new symptoms as these may be signs of missed injury. Sepsis Event Note - Focused Exam Vital Signs: Vital Signs Temp Pulse Resp BP Pulse Ox 03/29/19 03:24 36.8 C 80 12 172/93 H 98 Date Exam was Performed: 03/29/19 Time Exam was Performed: 05:02 - My Orders Last 24 Hours: My Active Orders 03/29/19 03:21 Vaccines to be Administered [RC] PER UNIT ROUTINE 03/29/19 04:46 CXR [Chest 1V Frontal] [CR] Stat - Assessment/Plan Last 24 Hours: My Active Orders 03/29/19 03:21 Vaccines to be Administered [RC] PER UNIT ROUTINE 03/29/19 04:46 CXR [Chest 1V Frontal] [CR] Stat
[2019-03-29] MEDS ORDERED: Midazolam 1 MG/ML 2 ML SDV IVPUSH ONE (03:51)
--- NOTE | 2019-03-29 04:15 | CRLCT ---
INDICATION: Fall, head trauma TECHNIQUE: CT head without contrast. COMPARISON: Head CT 02/07/2017 FINDINGS: CSF spaces: Within normal limits for age. Brain parenchyma: Diffuse cerebral atrophy with a moderate amount of low-density within the deep white matter. No intracranial bleed. Focal left temporal encephalomalacia. Old infarction at the level of the right insular cortex. 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 Skull base and calvarium: Atherosclerosis. Frontal scalp hematoma and subcutaneous air consistent with scalp laceration. IMPRESSION: 1. Scalp hematoma laceration without calvarial fracture or intracranial bleed. 2. Left temporal encephalomalacia with old infarctions as detailed above. Nonspecific white matter disease, likely microangiopathy. Please note that all CT scans at this facility use dose modulation, iterative reconstruction, and/or weight-based dosing when appropriate to reduce radiation dose to as low as reasonably achievable. Dictated by Galileo Cassidy MD @ Mar 29 2019 4:08AM Signed by Dr. Galileo Cassidy @ Mar 29 2019 4:14AM
--- NOTE | 2019-03-29 04:24 | CRLCT ---
INDICATION: Fall, head trauma. TECHNIQUE: CT cervical spine without contrast. COMPARISON: None FINDINGS: Vertebrae: Kyphosis of the cervical spine. There are no fractures or suspicious bony lesions. 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 Bilateral cervical ribs at C7. Discs and facet joints: Facet hypertrophy with 3 millimeter anterolisthesis C2-3 causing moderate foraminal stenosis. Facet hypertrophy with 2 millimeter anterolisthesis at C3-4 without significant stenosis. Facet hypertrophy C4-5 causing mild left foraminal stenosis. Facet hypertrophy C5-6 causing mild left foraminal stenosis. Facet hypertrophy C6-7 and C7-T1 without significant stenosis. Extraspinal findings: Apical pleural parenchymal scarring. Subcentimeter thyroid hypodense nodules right lobe. Atherosclerosis. IMPRESSION: Multilevel degenerative disc disease as detailed above without evidence of acute cervical spine fracture. Please note that all CT scans at this facility use dose modulation, iterative reconstruction, and/or weight-based dosing when appropriate to reduce radiation dose to as low as reasonably achievable. Dictated by Galileo Cassidy MD @ Mar 29 2019 4:15AM Signed by Dr. Galileo Cassidy @ Mar 29 2019 4:23AM
[2019-03-29 05:52] VITALS: BP 175/90; PULSE 82
--- NOTE | 2019-03-29 08:34 | CR ---
CHEST: Portable to 06/13/2019 at 0457 CLINICAL HISTORY:Fall COMPARISON:2017 FINDINGS: The heart is enlarged. Pulmonary vascular disease normal. There are atherosclerotic changes in the aorta. There are scattered areas of pleural parenchymal scarring similar to prior study. There is some patchy fibrosis in the lung bases right greater than left. There are no effusions Impression: Mild cardiomegaly Chronic interstitial changes No acute cardiopulmonary process.
== END 2019-03-29 05:59 | disposition home or self-care (01) ==
LOC: JP.ED 02:45
DX: S01.81XA Laceration without foreign body of other part of head, initial encounter (principal); S01.01XA Laceration without foreign body of scalp, initial encounter; I10 Essential (primary) hypertension; G30.9 Alzheimer's disease, unspecified; F02.80 Dementia in other diseases classified elsewhere, unspecified severity, without behavioral disturbance, psychotic disturbance, mood disturbance, and anxiety; Z88.6 Allergy status to analgesic agent; Z88.0 Allergy status to penicillin; Z88.2 Allergy status to sulfonamides; Z88.5 Allergy status to narcotic agent; Z79.899 Other long term (current) drug therapy; Z23 Encounter for immunization; W01.198A Fall on same level from slipping, tripping and stumbling with subsequent striking against other object, initial encounter; Y93.01 Activity, walking, marching and hiking; Y92.128 Other place in nursing home as the place of occurrence of the external cause
CPT/HCPCS: 12002; 12013; 70450; 71045; 72125; 96374; 99284; J2001; J2250; 12011; 99282

== ENCOUNTER 2020-03-17 20:39 | Emergency (ER) | payer MEDICARE, BC ==
--- NOTE | 2020-03-17 21:01 | EDM.PDOC ---
ED HPI GENERAL MEDICAL PROBLEM - General Chief Complaint: General Stated Complaint: MEDICAL VIA NORTH Time Seen by Provider: 03/17/20 20:50 Source of Information: Reports: EMS, Family History Limitations: Reports: Physical Impairment (Patient has significant dementia and cannot offer any history) - History of Present Illness INITIAL COMMENTS - FREE TEXT/NARRATIVE: 85-year-old female with dementia from the memory care unit was sent in with an epistaxis episode earlier today" blood in the toilet" tonight. The patient herself does not seem to have any idea what is happening, we got no call or paperwork from [employer]. Onset: Unknown/Unsure Associated Symptoms: Reports: No Other Symptoms, Confusion (Confusion is chronic). Denies: Shortness of Breath - Related Data Allergies Allergy/AdvReac Type Severity Reaction Status Date / Time acetaminophen [From Vicodin] Allergy Cannot Verified 03/17/20 20:54 Remember amoxicillin trihydrate Allergy Hives Verified 03/17/20 20:54 [From Augmentin] potassium clavulanate Allergy Hives Verified 03/17/20 20:54 [From Augmentin] hydrocodone AdvReac Hallucinati Verified 03/17/20 20:54 ons Sulfa (Sulfonamide AdvReac Vomiting Verified 03/17/20 20:54 Antibiotics) Home Meds: Home Meds Metoprolol Succinate 12.5 mg PO DAILY 12/15/15 [History] Acetaminophen [Tylenol] 325 mg PO Q4H PRN 09/26/16 [History] Docusate Sodium 100 mg PO BID 09/26/16 [History] Isosorbide Mononitrate [Isosorbide Mononitrate ER] 60 mg PO DAILY 09/26/16 [History] Citalopram Hydrobromide [Celexa] 10 mg PO DAILY 02/07/17 [History] levETIRAcetam [Levetiracetam] 250 mg PO BID 03/25/17 [History] Phenylephrine/Hypromell/Gly/Pf [Clear Eyes Pure Rlf Multi-Symp] 10 ml OP Q4HR PRN 05/07/17 [History] Brimonidine Tartrate/Timolol [Combigan Eye Drops] 5 ml OP TID 02/14/19 [History] Ibuprofen 200 mg PO Q6H PRN 02/14/19 [History] Mv,Calcium,Min/Iron/Folic/Vitk [Multi For Her Tablet] 1 tab PO DAILY 02/14/19 [History] Travoprost [Travatan Z 0.004% Ophth Soln] 1 drop OT BEDTIME 02/14/19 [History] Loperamide [Imodium] 4 mg PO Q6H 03/29/19 [History] Loratadine 1 tab PO DAILY 03/29/19 [History] Magnesium Hydroxide [Milk of Magnesia] 30 ml PO ASDIRECTED 03/29/19 [History] LORazepam [Ativan] 1 tab PO Q4HR PRN 03/17/20 [History] Melatonin 1 tab PO BEDTIME 03/17/20 [History] Past Medical History HEENT History: Reports: Impaired Vision 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: Reports: Hypertension Genitourinary History: Reports: Renal 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 s/p ORIF right wrist Neurological History: Reports: Alzheimers Disease, Seizure, Other (See Below) Other Neuro History: Nontraumatic brainstem hemorrhage Psychiatric History: Reports: Dementia Hematologic History: Reports: Blood Transfusion(s) Oncologic (Cancer) History: Reports: Breast Dermatologic History: Reports: Psoriasis - Infectious Disease History Infectious Disease History: Reports: Chicken Pox, Measles - Past Surgical History Female Surgical History: Reports: Section, Mastectomy, Other (See Below) Other Female Surgeries/Procedures: right mastectomy Musculoskeletal Surgical History: Reports: Arthroscopic Knee, Hip Replacement Oncologic Surgical History: Reports: Mastectomy Social & Family History - Family History Family Medical History: Unobtainable - Caffeine Use Caffeine Use: Reports: Coffee Other Caffeine Use: Daily in am. Caffeine Use Comment: 2 cups/day ED ROS GENERAL - Review of Systems Review Of Systems: See Below Constitutional: Denies: Fever, Chills Respiratory: Reports: No Symptoms GI/Abdominal: Denies: Nausea, Vomiting Free Text/Narrative/Comment: Advanced dementia, patient thinks she is having her menstrual cycle and that is why she is bleeding. ED EXAM, GENERAL - Physical Exam Exam: See Below Exam Limited By: No Limitations General Appearance: Alert, No Apparent Distress Nose: Other (A small amount of dried blood in the right nares from recent bleed but no active bleeding at this time) Head: Atraumatic Respiratory/Chest: No Respiratory Distress GI/Abdominal: Soft, Non-Tender Rectal (Female) Exam: Other (Rectal exam revealed no masses, soft brown stool was present and a Hemoccult ordered) Course - Vital Signs Last Recorded V/S: Last Vital Signs Temp 97.8 F 03/17/20 21:05 Pulse 78 03/17/20 21:20 Resp 16 03/17/20 21:05 BP 93/51 L 03/17/20 21:20 Pulse Ox 94 L 03/17/20 21:20 - Orders/Labs/Meds Labs: Laboratory Tests 03/17/20 Range/Units 21:15 WBC 7.4 (4.5-11.0) K/uL RBC 3.91 (3.30-5.50) M/uL Hgb 10.7 L (12.0-15.0) g/dL Hct 34.3 L (36.0-48.0) % MCV 88 (80-98) fL MCH 27 (27-31) pg MCHC 31 L (32-36) % Plt Count 376 (150-400) K/uL Neut % (Auto) 52 (36-66) % Lymph % (Auto) 24 (24-44) % Kinney % (Auto) 10 H (2-6) % Eos % (Auto) 13 H (2-4) % Baso % (Auto) 1 (0-1) % - Re-Assessments/Exams Free Text/Narrative Re-Assessment/Exam: 03/17/20 21:01 CBC and guaiac stool was ordered. Patient will be observed pending lab results for any more additional bleeding. 03/17/20 21:35 Hemoglobin is 10.7, guaiac stools negative. Patient had no further evidence of any hemorrhaging from any source, and was stable. She will return if bleeding recurs, a BREAKDOWN WORKER source may have to be considered. Departure - Departure Time of Disposition: 22:19 Disposition: DC/Tfer to [facility] 03 Clinical Impression: Right-sided nosebleed - Discharge Information Instructions: Nosebleed, [id number] Referrals: Zion Cruz MD [Primary Care Provider] - Forms: ED Department Discharge Care Plan Goals: Return if nosebleed recurs and cannot be stopped. Also consider rechecking if bleeding recurs in the toilet, bed or chair which is most likely vaginal bleeding and a BREAKDOWN WORKER type exam may be necessary. Sepsis Event Note (ED) - Focused Exam Vital Signs: Vital Signs Temp Pulse Resp BP Pulse Ox 03/17/20 21:20 78 93/51 L 94 L 03/17/20 21:05 97.8 F 77 16 81/47 L 94 L 03/17/20 20:41 97.8 F 80 16 103/54 L 90 L
[2020-03-17 21:21] VITALS: BP 93/51; PULSE 78
== END 2020-03-17 22:00 ==
LOC: JP.ED 20:39
DX: R04.0 Epistaxis (principal); I10 Essential (primary) hypertension; R56.9 Unspecified convulsions; G30.9 Alzheimer's disease, unspecified; F02.80 Dementia in other diseases classified elsewhere, unspecified severity, without behavioral disturbance, psychotic disturbance, mood disturbance, and anxiety; Z88.6 Allergy status to analgesic agent; Z88.1 Allergy status to other antibiotic agents; Z88.5 Allergy status to narcotic agent; Z88.2 Allergy status to sulfonamides; Z79.899 Other long term (current) drug therapy
CPT/HCPCS: 36415; 82272; 85025; 99283

== ENCOUNTER 2020-04-09 13:46 | Observation (INO) | payer MEDICARE, BC ==
--- NOTE | 2020-04-09 14:20 | EDM.PDOC ---
ED HPI GENERAL MEDICAL PROBLEM - General Chief Complaint: Lower Extremity Injury/Pain Stated Complaint: left leg pain with swelling Time Seen by Provider: 04/09/20 14:05 Source of Information: Reports: Family, Old Records, RN History Limitations: Reports: No Limitations - History of Present Illness INITIAL COMMENTS - FREE TEXT/NARRATIVE: 85 yo female was sent to the ER from "the [facility]" for a L leg that is a little warm and slightly swollen today. Has a hx of DVT's and daughter says he hasn't been walking lately like she should, ie., more sedentary. No SOB, cough or fever noted. Has dementia. 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 (see below) (none) Left Leg Pain Score (Numeric/FACES): 4 - Related Data Allergies Allergy/AdvReac Type Severity Reaction Status Date / Time acetaminophen [From Vicodin] Allergy Cannot Verified 03/17/20 20:54 Remember amoxicillin trihydrate Allergy Hives Verified 03/17/20 20:54 [From Augmentin] potassium clavulanate Allergy Hives Verified 03/17/20 20:54 [From Augmentin] hydrocodone AdvReac Hallucinati Verified 03/17/20 20:54 ons Sulfa (Sulfonamide AdvReac Vomiting Verified 03/17/20 20:54 Antibiotics) Home Meds: Home Meds Metoprolol Succinate 12.5 mg PO DAILY 12/15/15 [History] Acetaminophen [Tylenol] 325 mg PO Q4H PRN 09/26/16 [History] Docusate Sodium 100 mg PO BID 09/26/16 [History] Isosorbide Mononitrate [Isosorbide Mononitrate ER] 60 mg PO DAILY 09/26/16 [History] Citalopram Hydrobromide [Celexa] 10 mg PO DAILY 02/07/17 [History] levETIRAcetam [Levetiracetam] 250 mg PO BID 03/25/17 [History] Phenylephrine/Hypromell/Gly/Pf [Clear Eyes Pure Rlf Multi-Symp] 10 ml OP Q4HR PRN 05/07/17 [History] Brimonidine Tartrate/Timolol [Combigan Eye Drops] 5 ml OP TID 02/14/19 [History] Ibuprofen 200 mg PO Q6H PRN 02/14/19 [History] Mv,Calcium,Min/Iron/Folic/Vitk [Multi For Her Tablet] 1 tab PO DAILY 02/14/19 [History] Travoprost [Travatan Z 0.004% Oph Soln] 1 drop OT BEDTIME 02/14/19 [History] Loperamide [Imodium] 4 mg PO Q6H 03/29/19 [History] Loratadine 1 tab PO DAILY 03/29/19 [History] Magnesium Hydroxide [Milk of Magnesia] 30 ml PO ASDIRECTED 03/29/19 [History] LORazepam [Ativan] 1 tab PO Q4HR PRN 03/17/20 [History] Melatonin 1 tab PO BEDTIME 03/17/20 [History] Past Medical History HEENT History: Reports: Impaired Vision, Other (See Below) Other HEENT History: recent L eye surgery 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: Reports: Hypertension Gastrointestinal History: Reports: Other (See Below) Other Gastrointestinal History: incont Genitourinary History: Reports: Renal Disease, Other (See Below) Other Genitourinary History: incont 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 s/p ORIF right wrist Neurological History: Reports: Alzheimers Disease, Seizure, Other (See Below) Other Neuro History: Nontraumatic brainstem hemorrhage Psychiatric History: Reports: Dementia Hematologic History: Reports: Blood Transfusion(s) Oncologic (Cancer) History: Reports: Breast Dermatologic History: Reports: Psoriasis - Infectious Disease History Infectious Disease History: Reports: Chicken Pox, Measles - Past Surgical History Female Surgical History: Reports: Section, Mastectomy, Other (See Below) Other Female Surgeries/Procedures: right mastectomy Musculoskeletal Surgical History: Reports: Arthroscopic Knee, Hip Replacement Oncologic Surgical History: Reports: Mastectomy Other Oncologic Surgeries/Procedures: Right Mastectomy Social & Family History - Family History Family Medical History: Unobtainable - Tobacco Use Tobacco Use Status *Q: Never Tobacco User - Caffeine Use Caffeine Use: Reports: Coffee Other Caffeine Use: Daily in am. Caffeine Use Comment: 2 cups/day - Recreational Drug Use Recreational Drug Use: No Review of Systems - Review of Systems Review Of Systems: See Below Constitutional: Reports: No Symptoms Respiratory: Denies: Shortness of Breath, Wheezing, Pleuritic Chest Pain, Cough, Sputum, Hemoptysis Cardiovascular: Reports: No Symptoms, Edema (L leg slightly swollen). Denies: Chest Pain, Syncope Musculoskeletal: Reports: Leg Pain (minimal L leg discomfort) Skin: Reports: Erythema (slight of L leg). Denies: Diaphoresis, Bruising, Pruritis, Wound ED EXAM, GENERAL - Physical Exam Exam: See Below Exam Limited By: No Limitations General Appearance: Alert, WD/WN, No Apparent Distress Respiratory/Chest: No Respiratory Distress, Lungs Clear, Normal Breath Sounds, No Accessory Muscle Use Cardiovascular: Regular Rate, Rhythm. No: No Edema (trace edemal of LLE) Extremities: Pedal Edema (trace LLE), Increased Warmth (L leg, especially below the knee.), Redness (slight pink tinge to skin of L leg.). No: No Pedal Edema Neurological: Alert Psychiatric: Normal Affect, Normal Mood Course - Vital Signs Text/Narrative:: Dr. Cooper called @ 1550h Last Recorded V/S: Last Vital Signs Temp 36.8 C 04/09/20 13:48 Pulse 88 04/09/20 13:48 Resp 18 04/09/20 13:48 BP 134/85 04/09/20 13:48 Pulse Ox 90 L 04/09/20 13:48 - Orders/Labs/Meds Orders: Active Orders 24 hr Category Date Time Status VL Duplex Lwr Ext Veins Ltd Lt [US] Stat Exams 04/09/20 14:14 Ordered Labs: Laboratory Tests 04/09/20 Range/Units 14:31 D-Dimer, Quantitative > 97955.00 H (0.0-500.0) ng/mL Meds: Medications Discontinued Medications Generic Name Dose Route Start Last Admin Trade Name Freq PRN Reason Stop Dose Admin Acetaminophen 640 mg 04/09/20 14:23 04/09/20 14:31 Tylenol Solution 160 Mg/5 Ml Ud Cup PO 04/09/20 14:24 640 mg ONETIME ONE Administration - Radiology Interpretation Free Text/Narrative:: venous doppler of L calf-clot from calf to upper thigh Departure - Departure Time of Disposition: 15:55 Disposition: Admitted As Inpatient 66 Condition: Fair Clinical Impression: Left leg DVT Qualifiers: Affected thrombotic vein of extremity: femoral Chronicity: acute Qualified Code(s): I82.412 - Acute embolism and thrombosis of left femoral vein - Discharge Information Referrals: Aaron Hernandez MD [Primary Care Provider] - Forms: ED Department Discharge Sepsis Event Note (ED) - Evaluation Sepsis Screening Result: No Definite Risk - Focused Exam Vital Signs: Vital Signs Temp Pulse Resp BP Pulse Ox 04/09/20 13:48 36.8 C 88 18 134/85 90 L - My Orders Last 24 Hours: My Active Orders 04/09/20 14:14 VL Duplex Lwr Ext Veins Ltd Lt [US] Stat - Assessment/Plan Last 24 Hours: My Active Orders 04/09/20 14:14 VL Duplex Lwr Ext Veins Ltd Lt [US] Stat
[2020-04-09] MEDS ORDERED: Acetaminophen Soln 160 MG/5 ML UD Cup PO ONE (14:23)
[2020-04-09] MEDS ORDERED: Apixaban 5 MG Tab PO SCH (16:15)
[2020-04-09] MEDS ORDERED: Ondansetron 4 MG/2 ML SDV IV PRN (18:03)
[2020-04-09] MEDS ORDERED: Acetaminophen 325 MG Tab PO PRN (18:03)
[2020-04-09] MEDS ORDERED: Sodium Chloride 0.9% 10 ML Syringe FLUSH PRN (18:03)
[2020-04-09] MEDS ORDERED: Polyethylene Glycol 3350 Powder 17 GM Packet PO PRN (18:03)
[2020-04-09] MEDS ORDERED: levETIRAcetam 250 MG Tab PO SCH (21:00)
[2020-04-09] MEDS ORDERED: Docusate Sodium 100 MG Cap PO SCH (21:00)
[2020-04-09] MEDS ORDERED: Non-Formulary Medication 1 Each (Melatonin [Melatonin] 1 TAB) PO SCH (21:00)
[2020-04-09] MEDS ORDERED: Non-Formulary Medication 1 Each (Travoprost [Travatan Z 0.004% Ophth Soln] 1 DROP) OT SCH (21:00)
[2020-04-10] MEDS ORDERED: Apixaban 5 MG Tab PO SCH (06:00)
--- NOTE | 2020-04-10 08:42 | HP ---
CHIEF COMPLAINT: Ms. Schuler is an 85-year-old woman who was admitted to observation status through the emergency department with left leg swelling secondary to left leg deep vein thrombosis. HISTORY OF PRESENT ILLNESS: Ms. Schuler has not had any recent documented injury to the leg. 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 She currently resides at a local Memory Care Unit because of underlying dementia. With her dementia, she is unable to provide a meaningful history concerning recent symptoms or review of systems. Her son is with her and reports that he was contacted by the facility this morning stating that they noted some left leg swelling, so she was brought into the emergency department for further evaluation. D-dimer was markedly elevated, and venous Doppler studies of the left leg show clot extending from the calf all the way to the proximal thigh on the left. PAST MEDICAL HISTORY: Remarkable for previous deep vein thrombosis. She has also had a history of a fall resulting in skull fracture and subarachnoid hemorrhage. There is a history of hypertension, urinary incontinence, previous C-sections, and mastectomy on the right for breast cancer. She has a history of osteoarthritis, status post left and right wrist fractures with surgical repair, arthroscopic surgery of the knee, and hip replacement. She has a history of seizure disorder and psoriasis. MEDICATIONS: Reviewed as part of the admission process and medication reconciliation and are as outlined in the electronic medical record. ALLERGIES: SHE HAS A HISTORY OF ALLERGIC REACTION AND INTOLERANCE TO ACETAMINOPHEN, AMOXICILLIN, HYDROCODONE, AND SULFA. SOCIAL HISTORY: She is 85 years of age and currently resides at the Memory Care unit. Her continues to live semi-independently. No recent history of tobacco or alcohol use. FAMILY HISTORY: Noncontributory. REVIEW OF SYSTEMS: Not obtainable because of underlying dementia. PHYSICAL EXAMINATION: VITAL SIGNS: Blood pressure is 134/85, heart rate 88, respiratory rate 18, temperature is 98.3 degrees, and saturation 90% on room air. SKIN: No rashes or lesions. EXTREMITIES: There is mild swelling of the left leg but fairly minimal. No erythema or other obvious abnormalities identified. HEENT: Pupils are equal, reactive to light. Mouth and pharynx are clear. NECK: No palpable masses or adenopathy. LUNGS: Clear to auscultation with no rales, rhonchi, or wheezes. CARDIAC: Regular rate and rhythm. S1, S2 normal. No murmurs, S3, or S4. No jugular venous distention. ABDOMEN: Soft, nontender without palpable masses or organomegaly. EXTREMITIES: Peripheral pulses are mildly diminished but palpable. NEUROLOGIC: Grossly intact other than obvious cognitive impairment. LABORATORY TESTS AND DIAGNOSTIC STUDIES: Venous Doppler study is reported. CBC remarkable for hemoglobin of 9.5, white blood cell count and platelets were normal. Chemistry profile remarkable for sodium of 134, creatinine is 1.0 with estimated GFR of 53, calcium is 8.3, and albumin 2.4 with a globulin of 4.5. IMPRESSION: 1. Left leg deep vein thrombosis in this 85-year-old woman with prior history of deep vein thrombosis. She will be placed on anticoagulation with Eliquis 10 mg twice daily for 7 days and then 5 mg twice daily thereafter. Her son was present with her today. He is her healthcare power of research attorney, and I did review with him the potential risks of medication versus benefits, and he elected to proceed with recommended therapy. 2. Chronic kidney disease stage 3A. Closely monitor urine output and renal function during hospitalization. 3. Anemia. Hemoglobin currently of 9.5. We will plan to reassess and monitor during hospital stay. 4. Maintenance issues. She will be treated with the Eliquis, which should provide further deep vein thrombosis prophylaxis. She does not currently require stress ulcer prophylaxis. She will be on a low-sodium diet. 5. Code status. I did discuss this with her son. She will be do not resuscitate/do not intubate. Winston Cooper MD /[id number]
[2020-04-10] MEDS ORDERED: Isosorbide Mononitrate 30 MG Tab.ER PO SCH (09:00)
[2020-04-10] MEDS ORDERED: Metoprolol Succinate 25 MG Tab.ER PO SCH (09:00)
[2020-04-10] MEDS ORDERED: Loratadine 10 MG Tab PO SCH (09:00)
[2020-04-10] MEDS ORDERED: Citalopram 10 MG Tab PO SCH (09:00)
--- NOTE | 2020-04-10 09:07 | US ---
VL Duplex Lwr Ext Veins Ltd Lt INDICATION: L leg swollen and warm, hx of DVT FINDINGS: Ultrasound examination of the lower extremity using Doppler and compressive technique demonstrates no flow in the common femoral vein downward through the superficial femoral and popliteal veins into the proximal calf. Veins were not compressible. There were internal echoes. IMPRESSION: Extensive deep venous thrombosis from the common femoral vein downward through the popliteal vein. Verbal report was given to the ER at the time of the procedure.
[2020-04-10 10:49] VITALS: BP 119/70; PULSE 82
--- NOTE | 2020-04-10 12:04 | PCM.DCSUM1 ---
Discharge Summary - Hospital Course Brief History: Ms. Schuler is an 85-year-old woman who was admitted through the emergency department observation status with swelling of her left lower extremity secondary to left leg deep vein thrombosis. - Discharge Data Discharge Date: 04/10/20 Discharge Disposition: DC/Tfer to SNF 03 Condition: Fair - Referral to Home Health Primary Care Physician: Aaron Hernandez MD - Discharge Diagnosis/Problem(s) (1) Left leg DVT SNOMED Code(s): 265019405 ICD Code: I82.402 - ACUTE EMBOLISM AND THOMBOS UNSP DEEP VEINS OF L LOW EXTREM Status: Acute Current Visit: Yes Qualifiers: Affected thrombotic vein of extremity: femoral Chronicity: acute Qualified Code(s): I82.412 - Acute embolism and thrombosis of left femoral vein (2) Dementia SNOMED Code(s): 96611321 ICD Code: F03.90 - UNSPECIFIED DEMENTIA WITHOUT BEHAVIORAL DISTURBANCE Status: Chronic Current Visit: No Qualifiers: Dementia type: unspecified type Dementia behavioral disturbance: without behavioral disturbance Qualified Code(s): F03.90 - Unspecified dementia without behavioral disturbance - Patient Summary/Data Hospital Course: Ms. Schuler is an 85-year-old woman who was admitted through the emergency department observation status for management of left leg deep vein thrombosis. On the day of admission staff at her assisted living facility noted swelling of the left leg, family was contacted and she was brought into the emergency department for further evaluation. Venous Doppler studies of the left leg did document deep vein thrombosis extending from the calf to the proximal thigh. Ms. Schuler is unable to provide meaningful information concerning symptoms or review of systems because of underlying dementia. Findings were reviewed with her son who was present as well as recommendations for management. Risks and goals of anticoagulant were reviewed with him and he did give informed consent to proceed. She was started on Eliquis 10 mg twice daily and will complete a 7- day course of this regimen. After the initial course dose will be decreased to 5 mg twice daily. She does have a history of previous deep vein thrombosis and consideration could be given to ongoing anticoagulation. She remained stable during hospitalization with no hemodynamic instability. Activity will be as tolerated and she will resume her usual diet. - Patient Instructions Diet: Usual Diet as Tolerated Activity: As Tolerated - Discharge Plan *PRESCRIPTION DRUG MONITORING PROGRAM REVIEWED*: Not Applicable *COPY OF PRESCRIPTION DRUG MONITORING REPORT IN PATIENT ENRIQUE: Not Applicable Prescriptions/Med Rec: Apixaban [Eliquis] 10 mg PO Q12H #60 tablet Home Medications: Home Meds Metoprolol Succinate 12.5 mg PO DAILY 12/15/15 [History] Acetaminophen [Tylenol] 325 mg PO Q4H PRN 09/26/16 [History] Docusate Sodium 100 mg PO BID 09/26/16 [History] Isosorbide Mononitrate [Isosorbide Mononitrate ER] 60 mg PO DAILY 09/26/16 [History] Citalopram Hydrobromide [Celexa] 10 mg PO DAILY 02/07/17 [History] levETIRAcetam [Levetiracetam] 250 mg PO BID 03/25/17 [History] Phenylephrine/Hypromell/Gly/Pf [Clear Eyes Pure Rlf Multi-Symp] 10 ml OP Q4HR PRN 05/07/17 [History] Brimonidine Tartrate/Timolol [Combigan 0.2%-0.5% Eye Drops] 5 ml OP TID 02/14/19 [History] Ibuprofen 200 mg PO Q6H PRN 02/14/19 [History] Mv,Calcium,Min/Iron/Folic/Vitk [Multi For Her Tablet] 1 tab PO DAILY 02/14/19 [History] Travoprost [Travatan Z 0.004% Ophth Soln] 1 drop OT BEDTIME 02/14/19 [History] Loperamide [Imodium] 4 mg PO Q6H 03/29/19 [History] Loratadine 1 tab PO DAILY 03/29/19 [History] Magnesium Hydroxide [Milk of Magnesia] 30 ml PO ASDIRECTED 03/29/19 [History] LORazepam [Ativan] 1 tab PO Q4HR PRN 03/17/20 [History] Melatonin 1 tab PO BEDTIME 03/17/20 [History] Apixaban [Eliquis] 10 mg PO Q12H #60 tablet 04/10/20 [Rx] Referrals: Aaron Hernandez MD [Primary Care Provider] - - Discharge Summary/Plan Comment DC Time >30 min.: No - Patient Data Vitals - Most Recent: Last Vital Signs Temp 96.8 F L 04/10/20 10:47 Pulse 82 04/10/20 10:47 Resp 18 04/10/20 10:47 BP 119/70 04/10/20 10:47 Pulse Ox 92 L 04/10/20 10:47 Weight - Most Recent: 107 lb 9.017 oz I&O - Last 24 hours: Intake & Output 04/09/20 04/10/20 04/10/20 22:59 06:59 14:59 Intake Total 240 300 Output Total 300 Balance -60 300 Lab Results - Last 24 hrs: Laboratory Results - last 24 hr 04/09/20 04/09/20 04/09/20 Range/Units 14:31 16:19 16:19 WBC 6.7 (4.5-11.0) K/uL RBC 3.58 (3.30-5.50) M/uL Hgb 9.5 L (12.0-15.0) g/dL Hct 31.0 L (36.0-48.0) % MCV 87 (80-98) fL MCH 27 (27-31) pg MCHC 31 L (32-36) % Plt Count 358 (150-400) K/uL Neut % (Auto) 67 H (36-66) % Lymph % (Auto) 16 L (24-44) % [place] % (Auto) 9 H (2-6) % Eos % (Auto) 9 H (2-4) % Baso % (Auto) 0 (0-1) % PT (9.5-12.0) sec INR (0.80-1.20) APTT (27.0-36.0) sec D-Dimer, Quantitative > 62046.00 H (0.0-500.0) ng/mL Sodium 134 L (140-148) mmol/L Potassium 4.3 (3.6-5.2) mmol/L Chloride 100 (100-108) mmol/L Carbon Dioxide 28 (21-32) mmol/L Anion Gap 10.3 (5.0-14.0) mmol/L BUN 12 (7-18) mg/dL Creatinine 1.0 (0.6-1.0) mg/dL Est Cr Clr Drug Dosing 32.40 mL/min Estimated GFR (MDRD) 53 L (>60) Glucose 97 (74-106) mg/dL Calcium 8.3 L (8.5-10.1) mg/dL Magnesium 1.9 (1.8-2.4) mg/dL Total Bilirubin 0.5 (0.2-1.0) mg/dL AST 18 (15-37) U/L ALT 12 (12-78) U/L Alkaline Phosphatase 89 (46-116) U/L Total Protein 6.9 (6.4-8.2) g/dL Albumin 2.4 L (3.4-5.0) g/dL Globulin 4.5 H (2.3-3.5) g/dL Albumin/Globulin Ratio 0.5 L (1.2-2.2) 04/09/20 04/10/20 04/10/20 Range/Units 16:19 05:23 05:23 WBC 6.6 (4.5-11.0) K/uL RBC 3.46 (3.30-5.50) M/uL Hgb 9.2 L (12.0-15.0) g/dL Hct 30.2 L (36.0-48.0) % MCV 87 (80-98) fL MCH 27 (27-31) pg MCHC 31 L (32-36) % Plt Count 370 (150-400) K/uL Neut % (Auto) 61 (36-66) % Lymph % (Auto) 17 L (24-44) % [place] % (Auto) 9 H (2-6) % Eos % (Auto) 13 H (2-4) % Baso % (Auto) 0 (0-1) % PT 11.8 (9.5-12.0) sec INR 1.08 (0.80-1.20) APTT 30.2 (27.0-36.0) sec D-Dimer, Quantitative (0.0-500.0) ng/mL Sodium (140-148) mmol/L Potassium (3.6-5.2) mmol/L Chloride (100-108) mmol/L Carbon Dioxide (21-32) mmol/L Anion Gap (5.0-14.0) mmol/L BUN (7-18) mg/dL Creatinine (0.6-1.0) mg/dL Est Cr Clr Drug Dosing mL/min Estimated GFR (MDRD) (>60) Glucose (74-106) mg/dL Calcium (8.5-10.1) mg/dL Magnesium (1.8-2.4) mg/dL Total Bilirubin (0.2-1.0) mg/dL AST (15-37) U/L ALT (12-78) U/L Alkaline Phosphatase (46-116) U/L Total Protein (6.4-8.2) g/dL Albumin (3.4-5.0) g/dL Globulin (2.3-3.5) g/dL Albumin/Globulin Ratio (1.2-2.2) 04/10/20 Range/Units 05:23 WBC (4.5-11.0) K/uL RBC (3.30-5.50) M/uL Hgb (12.0-15.0) g/dL Hct (36.0-48.0) % MCV (80-98) fL MCH (27-31) pg MCHC (32-36) % Plt Count (150-400) K/uL Neut % (Auto) (36-66) % Lymph % (Auto) (24-44) % [place] % (Auto) (2-6) % Eos % (Auto) (2-4) % Baso % (Auto) (0-1) % PT (9.5-12.0) sec INR (0.80-1.20) APTT (27.0-36.0) sec D-Dimer, Quantitative (0.0-500.0) ng/mL Sodium 137 L (140-148) mmol/L Potassium 4.3 (3.6-5.2) mmol/L Chloride 102 (100-108) mmol/L Carbon Dioxide 29 (21-32) mmol/L Anion Gap 10.3 (5.0-14.0) mmol/L BUN 12 (7-18) mg/dL Creatinine 1.0 (0.6-1.0) mg/dL Est Cr Clr Drug Dosing 31.68 mL/min Estimated GFR (MDRD) 53 L (>60) Glucose 90 (74-106) mg/dL Calcium 8.5 (8.5-10.1) mg/dL Magnesium (1.8-2.4) mg/dL Total Bilirubin (0.2-1.0) mg/dL AST (15-37) U/L ALT (12-78) U/L Alkaline Phosphatase (46-116) U/L Total Protein (6.4-8.2) g/dL Albumin (3.4-5.0) g/dL Globulin (2.3-3.5) g/dL Albumin/Globulin Ratio (1.2-2.2) Med Orders - Current: Current Medications Acetaminophen (Tylenol) 650 mg PO Q4H PRN PRN Reason: Pain (Mild 1-3)/fever Apixaban (Eliquis) 10 mg PO Q12H [facility] Stop: 04/16/20 06:01 Last Admin: 04/10/20 06:40 Dose: 10 mg Documented by: Citalopram Hydrobromide (Celexa) 10 mg PO DAILY [facility] Docusate Sodium (Colace) 100 mg PO BID [facility] Last Admin: 04/09/20 21:18 Dose: 100 mg Documented by: Isosorbide Mononitrate (Imdur) 60 mg PO DAILY [facility] Levetiracetam (Keppra) 250 mg PO BID [facility] Last Admin: 04/09/20 21:18 Dose: 250 mg Documented by: Loratadine (Claritin) 10 mg PO DAILY [facility] Melatonin (Melatonin) 9 mg PO BEDTIME [facility] Metoprolol Succinate (Toprol Xl) 12.5 mg PO DAILY [facility] Non-Formulary Medication (Brimonidine Tartrate/Timolol [Combigan 0.2%-0.5% Eye Drops]) 5 ml OP TID [facility] Non-Formulary Medication (Travoprost [Travatan Z 0.004% Ophth Soln]) 1 drop OT BEDTIME [facility] Ondansetron HCl (Zofran) 4 mg IV Q4H PRN PRN Reason: Nausea/Vomiting Polyethylene Glycol (Miralax) 17 gm PO DAILY PRN PRN Reason: Constipation Sodium Chloride (Saline Flush) 10 ml FLUSH ASDIRECTED PRN PRN Reason: Keep Vein Open Discontinued Medications Acetaminophen (Tylenol Solution 160 Mg/5 Ml Ud Cup) 640 mg PO ONETIME ONE Stop: 04/09/20 14:24 Last Admin: 04/09/20 14:31 Dose: 640 mg Documented by: Apixaban (Eliquis) 10 mg PO BID [facility] Stop: 04/09/20 18:00 Last Admin: 04/09/20 16:27 Dose: 10 mg Documented by: - Exam Quality Assessment: Reports: DVT Prophylaxis General: Reports: Alert, Cooperative, No Acute Distress. Denies: Oriented Lungs: Reports: Clear to Auscultation, Normal Respiratory Effort Cardiovascular: Reports: Regular Rate, Regular Rhythm, No Murmurs GI/Abdominal Exam: Soft, Non-Tender, No Organomegaly, No Distention Extremities: Non-Tender, Pedal Edema *Q Meaningful Use (DIS) - VTE *Q VTE Pharmacological Contraindications *Q: High INR Value
[2020-04-10] MEDS ORDERED: Melatonin 3 MG Tab PO SCH ×2 (21:00)
== END 2020-04-10 15:00 ==
LOC: JP.ED 13:46 → JP.MS 16:07
PROVIDERS: ADMIT Hospitalist; ATTEND Hospitalist
DX: I82.412 Acute embolism and thrombosis of left femoral vein (principal); F03.90 Unspecified dementia, unspecified severity, without behavioral disturbance, psychotic disturbance, mood disturbance, and anxiety; N18.31 Chronic kidney disease, stage 3a; I12.9 Hypertensive chronic kidney disease with stage 1 through stage 4 chronic kidney disease, or unspecified chronic kidney disease; D63.1 Anemia in chronic kidney disease; M19.90 Unspecified osteoarthritis, unspecified site; M81.0 Age-related osteoporosis without current pathological fracture; Z88.1 Allergy status to other antibiotic agents; Z88.2 Allergy status to sulfonamides; Z88.6 Allergy status to analgesic agent; Z98.890 Other specified postprocedural states; Z79.899 Other long term (current) drug therapy
CPT/HCPCS: 36415; 80048; 80053; 83735; 85025; 85379; 85610; 85730; 93971-26-LT; 93971-LT; 94762; 99217; 99219; 99284; 99285-25; A9270-GY; G0378

== ENCOUNTER 2022-10-24 11:41 | Emergency (ER) | payer MEDICARE, BC ==
[2022-10-24 12:22] LABS: BASOPHILS ABSOLUTE AUTO 0.05 K/uL (0.00-0.10); BASOPHILS PERCENT AUTO 0.7 % (0.1-1.3); EOSINOPHILS ABSOLUTE AUTO 0.42 K/uL (0.00-0.40); EOSINOPHILS PERCENT AUTO 6.3 % (0.0-5.4); IMMATURE GRAN ABSOLUTE AUTO 0.03 K/uL (0.00-0.23); IMMATURE GRAN PERCENT AUTO 0.4 % (0.0-0.7); LYMPHOCYTES ABSOLUTE AUTO 1.67 K/uL (0.8-3.3); LYMPHOCYTES PERCENT AUTO 24.9 % (11.4-47.7); MEAN CORPUSCULAR HGB CONC 31.4 g/dL (31.6-35.5); MEAN CORPUSCULAR VOLUME 92.3 fL (81.4-99.0); MONOCYTES ABSOLUTE AUTO 0.77 K/uL (0.20-0.90); MONOCYTES PERCENT AUTO 11.5 % (3.3-12.6); NEUTROPHILS ABSOLUTE AUTO 3.76 K/uL (1.0-7.6); NEUTROPHILS PERCENT AUTO 56.2 % (40.0-78.1); PLATELET COUNT,PLT 258 K/uL (130-375); RED BLOOD CELL COUNT 3.79 M/uL (3.77-5.24); WHITE BLOOD CELL COUNT,WBC 6.7 K/uL (3.2-11.0)
[2022-10-24 12:30] LABS: BASE EXCESS VENOUS 1.3 mm/L; BICARBONATE,VENOUS 28.1 mmol/L; CARBOXYHEMOGLOBIN 2.1 % (0.0-1.6); METHEMOGLOBIN 0.5 %; O2 SATURATION VENOUS 42.9; OXYHEMOGLOBIN 41.8 %; PCO2 VENOUS 58.2 mm/Hg; PH,VENOUS 7.305 (7.350-7.450); PO2 VENOUS 30.3 mm/Hg; TOTAL HEMOGLOBIN 11.3 g/dL (12.0-16.0)
[2022-10-24] MEDS: Sodium Chloride 0.9% 10 ML Syringe FLUSH PRN (12:43)
[2022-10-24 12:47] LABS: A/G RATIO 0.9 (1.2-2.2); ALANINE AMINOTRANSFERASE,ALT 17 U/L (12-78); ALBUMIN 3.6 g/dL (3.4-5.0); ALKALINE PHOSPHATASE 94 U/L (46-116); ANION GAP 7.8 mmol/L (5.0-14.0); ASPARTATE AMNIOTRANSFERASE,AST 17 U/L (15-37); BILIRUBIN TOTAL 0.4 mg/dL (0.2-1.0); BLOOD UREA NITROGEN,BUN 20 mg/dL (7-18); CALCIUM 8.8 mg/dL (8.5-10.1); CARBON DIOXIDE,CO2 30 mmol/L (21-32); CHLORIDE,CL 104 mmol/L (100-108); CREATININE 1.2 mg/dL (0.6-1.0); EST CRCL DRUG DOSING (CG) 25.39 mL/min; ESTIMATED GFR 44 mL/min (>60); GLUCOSE RANDOM 84 mg/dL (74-106); POTASSIUM,K 4.1 mmol/L (3.6-5.2); PROTEIN TOTAL,TP 7.8 g/dL (6.4-8.2); SODIUM,NA 142 mmol/L (140-148); TROPONIN I HIGH SENSITIVITY 5.9 pg/mL (<=60.3)
[2022-10-24] MEDS: Iopamidol 755 Mg/ML 100 ML Bottle IV ONE (13:52)
[2022-10-24] MEDS: Sodium Chloride 0.9% 10 ML SDV FLUSH ONE (13:53)
[2022-10-24] MEDS: Sodium Chloride 0.9% 100 ML IV SCH (13:53)
[2022-10-24 14:47] LABS: APPEARANCE,URINE SLIGHTLY CLOUDY (CLEAR); BILIRUBIN,URINE NEGATIVE (NEGATIVE); COLOR,URINE YELLOW (YELLOW); GLUCOSE,URINE NEGATIVE (NEGATIVE); KETONES,URINE NEGATIVE (NEGATIVE); LEUKOCYTE ESTERASE,URINE NEGATIVE (NEGATIVE); NITRITE,URINE NEGATIVE (NEGATIVE); OCCULT BLOOD,URINE TRACE-INTACT (NEGATIVE); PROTEIN,URINE NEGATIVE (NEGATIVE); UROBILINOGEN,URINE 0.2 EU/dL (0.2-1.0)
[2022-10-24 14:53] VITALS: BP 133/62; PULSE 71
[2022-10-24 14:57] LABS: AMORPHOUS SEDIMENT,URINE NOT SEEN; BACTERIA,URINE FEW; EPITHELIAL CELLS,URINE FEW; MUCUS,URINE RARE; WBC,URINE 0-5 (0-5)
[2022-10-24] MEDS: Sodium Chloride 0.9% 500 ML IV ONE (15:00)
== END 2022-10-24 15:52 ==
LOC: JP.ED 11:41
DX: J18.9 Pneumonia, unspecified organism (principal); I10 Essential (primary) hypertension; Z88.0 Allergy status to penicillin; Z88.5 Allergy status to narcotic agent; Z88.1 Allergy status to other antibiotic agents; Z88.6 Allergy status to analgesic agent; Z79.899 Other long term (current) drug therapy
CPT/HCPCS: 36415; 71275; 80053; 81001; 82803; 83605; 84145; 84484; 85025; 85379; 99285; J3490; J7040; Q9967

== ENCOUNTER 2022-10-28 16:38 | Emergency (ER) | payer MEDICARE, BC ==
[2022-10-28] MEDS ORDERED: Sodium Chloride 0.9% 1,000 ML IV SCH (17:00)
[2022-10-28 17:05] LABS: BASE EXCESS VENOUS 1.2 mm/L; BASOPHILS ABSOLUTE AUTO 0.05 K/uL (0.00-0.10); BASOPHILS PERCENT AUTO 0.8 % (0.1-1.3); CARBOXYHEMOGLOBIN 2.8 % (0.0-1.6); EOSINOPHILS ABSOLUTE AUTO 0.77 K/uL (0.00-0.40); EOSINOPHILS PERCENT AUTO 12.1 % (0.0-5.4); HEMATOCRIT 33.7 % (34.3-46.0); HEMOGLOBIN 10.9 g/dL (11.2-15.5); IMMATURE GRAN PERCENT AUTO 0.3 % (0.0-0.7); LYMPHOCYTES ABSOLUTE AUTO 1.21 K/uL (0.8-3.3); MEAN CORPUSCULAR HEMOGLOBIN 29.1 pg (31.6-35.5); MEAN CORPUSCULAR HGB CONC 32.3 g/dL (31.6-35.5); MEAN CORPUSCULAR VOLUME 89.9 fL (81.4-99.0); METHEMOGLOBIN 0.5 %; MONOCYTES ABSOLUTE AUTO 0.77 K/uL (0.20-0.90); MONOCYTES PERCENT AUTO 12.1 % (3.3-12.6); NEUTROPHILS ABSOLUTE AUTO 3.54 K/uL (1.0-7.6); NEUTROPHILS PERCENT AUTO 55.7 % (40.0-78.1); O2 SATURATION VENOUS 66.7; OXYHEMOGLOBIN 64.5 %; PCO2 VENOUS 44.7 mm/Hg; PH,VENOUS 7.383 (7.350-7.450); PLATELET COUNT,PLT 266 K/uL (130-375); RED BLOOD CELL COUNT 3.75 M/uL (3.77-5.24); TOTAL HEMOGLOBIN 11.2 g/dL (12.0-16.0); WHITE BLOOD CELL COUNT,WBC 6.4 K/uL (3.2-11.0)
[2022-10-28 17:08] LABS: IMMATURE GRAN ABSOLUTE AUTO 0.02 K/uL (0.00-0.23); PO2 VENOUS 38.4 mm/Hg
[2022-10-28 17:33] LABS: APPEARANCE,URINE SLIGHTLY CLOUDY (CLEAR); BILIRUBIN,URINE NEGATIVE (NEGATIVE); COLOR,URINE YELLOW (YELLOW); GLUCOSE,URINE NEGATIVE (NEGATIVE); KETONES,URINE NEGATIVE (NEGATIVE); LEUKOCYTE ESTERASE,URINE NEGATIVE (NEGATIVE); NITRITE,URINE NEGATIVE (NEGATIVE); OCCULT BLOOD,URINE NEGATIVE (NEGATIVE); PROTEIN,URINE NEGATIVE (NEGATIVE); UROBILINOGEN,URINE 0.2 EU/dL (0.2-1.0)
[2022-10-28 17:37] LABS: A/G RATIO 0.8 (1.2-2.2); ALANINE AMINOTRANSFERASE,ALT 18 U/L (12-78); ALBUMIN 3.4 g/dL (3.4-5.0); ALKALINE PHOSPHATASE 86 U/L (46-116); ASPARTATE AMNIOTRANSFERASE,AST 25 U/L (15-37); BILIRUBIN TOTAL 0.4 mg/dL (0.2-1.0); BLOOD UREA NITROGEN,BUN 21 mg/dL (7-18); CALCIUM 8.7 mg/dL (8.5-10.1); CARBON DIOXIDE,CO2 27 mmol/L (21-32); CHLORIDE,CL 102 mmol/L (100-108); CREATININE 1.1 mg/dL (0.6-1.0); EST CRCL DRUG DOSING (CG) 25.88 mL/min; ESTIMATED GFR 49 mL/min (>60); GLUCOSE RANDOM 89 mg/dL (74-106); POTASSIUM,K 4.9 mmol/L (3.6-5.2); PRO B-TYPE NATRIUR PEPT,BNPPRO 227 pg/mL (5-450); PROTEIN TOTAL,TP 7.5 g/dL (6.4-8.2); SODIUM,NA 137 mmol/L (140-148)
[2022-10-28 17:42] LABS: ANION GAP 12.9 mmol/L (5.0-14.0)
[2022-10-28 17:42] LABS: AMORPHOUS SEDIMENT,URINE NOT SEEN; BACTERIA,URINE FEW; EPITHELIAL CELLS,URINE FEW; MUCUS,URINE RARE; WBC,URINE 0-5 (0-5)
[2022-10-28] MEDS ORDERED: Sodium Chloride 0.9% 100 ML IV SCH (18:30)
[2022-10-28] MEDS ORDERED: Iopamidol 755 Mg/ML 100 ML Bottle IV SCH (18:30)
[2022-10-28] MEDS ORDERED: Levofloxacin 250 MG Tab PO ONE (20:20)
[2022-10-29] MEDS ORDERED: OLANZapine 5 MG Tab PO ONE ×2 (02:04→02:05)
[2022-10-29 07:34] VITALS: BP 118/72; PULSE 112
== END 2022-10-29 11:30 ==
LOC: JP.ED 16:38
DX: J18.9 Pneumonia, unspecified organism (principal); I10 Essential (primary) hypertension; Z88.6 Allergy status to analgesic agent; Z88.0 Allergy status to penicillin; Z88.5 Allergy status to narcotic agent; Z88.2 Allergy status to sulfonamides; Z79.899 Other long term (current) drug therapy; Z98.890 Other specified postprocedural states
CPT/HCPCS: 36415; 70450; 71045; 71275; 80053; 81001; 82803; 83605; 83880; 84145; 84484; 85025; 85379; 87040; 93005; 99284; A9270; J3490; J7030; Q9967